=== PATIENT | female | born 1970 | race Caucasian/White ===

== ENCOUNTER 2018-03-10 13:20 | Emergency (ER) | payer OTHER | END 2018-03-10 14:05 | disposition home or self-care (01) | LOC: E/R 14:05 | DX: H66.91 Otitis media, unspecified, right ear (principal); B34.9 Viral infection, unspecified; E11.9 Type 2 diabetes mellitus without complications; I10 Essential (primary) hypertension; Z79.84 Long term (current) use of oral hypoglycemic drugs | CPT/HCPCS: 99284; Z7502 ==

== ENCOUNTER 2018-03-18 03:58 | Emergency (ER) | payer OTHER ==
[2018-03-18] MEDS: LABETALOL HCL 20MG INJ IV (05:11)
[2018-03-18] MEDS: hydrALAzine 20 MG INJ IV (05:57)
== END 2018-03-18 07:09 | disposition home or self-care (01) ==
LOC: E/R 03:58
DX: I10 Essential (primary) hypertension (principal); J01.00 Acute maxillary sinusitis, unspecified; H66.91 Otitis media, unspecified, right ear; E11.9 Type 2 diabetes mellitus without complications; Z79.84 Long term (current) use of oral hypoglycemic drugs
CPT/HCPCS: 36415; 70450; 93005; 96374; 96375; 99285-25

== ENCOUNTER 2018-03-24 14:40 | Emergency (ER) | payer OTHER ==
[2018-03-24] MEDS: ONDANSETRON (ODT) 4 MG TAB ODT (15:45)
[2018-03-24] MEDS: HYDROCODONE/APAP (5/325) TAB PO (15:45)
[2018-03-24] MEDS: SILVER SULFADIAZINE 1% 25 GM CR TOP (15:46)
== END 2018-03-24 16:22 | disposition home or self-care (01) ==
LOC: FTE 14:40
DX: T21.22XA Burn of second degree of abdominal wall, initial encounter (principal); I10 Essential (primary) hypertension; X19.XXXA Contact with other heat and hot substances, initial encounter; Y92.9 Unspecified place or not applicable; Z79.84 Long term (current) use of oral hypoglycemic drugs
CPT/HCPCS: 16020; 99284-25

== ENCOUNTER 2018-04-29 20:25 | Inpatient (IN) | payer OTHER ==
[2018-04-29] MEDS ORDERED: SOD CHLORIDE 0.9% 1,000 ML IV (20:57)
[2018-04-29] MEDS: SOD CHLORIDE 0.9% 1,000 ML IV (22:03)
[2018-04-29 22:13] LABS: WHITE BLOOD COUNT 11.3 10^3/ul (4.8-10.8)
[2018-04-29 22:13] LABS: ADD MAN DIFF? NO; BASOPHIL # 0.1 10^3/ul (0.0-0.1); BASOPHILS % 0.8 % (0.0-2.0); EOSINOPHILS # 0.3 10^3/ul (0.0-0.5); EOSINOPHILS % 2.9 % (0.0-7.0); HEMOGLOBIN 9.6 g/dl (12.0-16.0); LYMPHOCYTES # 2.1 10^3/ul (0.8-2.9); LYMPHOCYTES % 18.8 % (15.0-51.0); MEAN CORPUSCULAR HEMOGLOBIN 29.8 pg (29.0-33.0); MEAN CORPUSCULAR VOLUME 93.2 fl (82.0-101.0); MEAN PLATELET VOLUME 8.6 fl (7.4-10.4); MONOCYTE # 1.1 10^3/ul (0.3-0.9); NEUTROPHIL # 7.5 10^3/ul (1.6-7.5); NEUTROPHILS % 67.1 % (39.0-77.0); PLATELET COUNT 312 10^3/UL (140-415); RED BLOOD COUNT 3.22 10^6/ul (4.20-5.40); RED CELL DISTRIBUTION WIDTH 12.7 % (11.5-14.5)
[2018-04-29 22:31] LABS: ALANINE AMINOTRANSFERASE 36 IU/L (13-69); ALBUMIN 3.5 g/dl (3.3-4.9); ALBUMIN/GLOBULIN RATIO 0.94; ALKALINE PHOSPHATASE 166 IU/L (42-121); ANION GAP 15 (8-16); ASPARTATE AMINO TRANSFERASE 31 IU/L (15-46); BILIRUBIN,INDIRECT 0.3 mg/dl (0-1.1); BILIRUBIN,TOTAL 0.3 mg/dl (0.2-1.3); BLOOD UREA NITROGEN 40 mg/dl (7-20); CALCIUM 9.2 mg/dl (8.4-10.2); CARBON DIOXIDE 22 mmol/L (21-31); CHLORIDE 106 mmol/L (97-110); CREATININE 3.35 mg/dl (0.44-1.00); GLUCOSE 247 mg/dl (70-220); POTASSIUM 4.5 mmol/L (3.5-5.1); SODIUM 138 mmol/L (135-144); TOTAL PROTEIN 7.2 g/dl (6.1-8.1)
[2018-04-29 22:47] LABS: PROTIME 12.2 Sec (11.9-14.9)
[2018-04-29 22:48] LABS: PARTIAL THROMBOPLASTIN TIME 27.6 Sec (25.0-35.0)
[2018-04-30] MEDS: ASPIRIN 81 MG TAB PO (00:06)
[2018-04-30] MEDS: LABETALOL HCL 20MG INJ IV (00:06)
[2018-04-30] MEDS ORDERED: ACETAMINOPHEN 325 MG TAB PO (00:30)
[2018-04-30] MEDS ORDERED: ONDANSETRON 4 MG INJ IV ×2 (00:30→02:30)
[2018-04-30] MEDS ORDERED: NACL 0.9% 3 ML SYG IV (02:30)
[2018-04-30] MEDS ORDERED: DOCUSATE SODIUM 100 MG CAP PO (02:30)
[2018-04-30] MEDS ORDERED: BISACODYL (EC) 5 MG TAB PO (02:30)
[2018-04-30] MEDS ORDERED: hydrALAzine 20 MG INJ IV ×2 (04:30→08:30)
[2018-04-30] MEDS: LEVETIRACETAM 500 MG TAB PO ×3 (04:42→21:12)
[2018-04-30] MEDS: NIFEdipine (XL) 30 MG TAB PO ×3 (04:42→14:37)
[2018-04-30] MEDS: LOSARTAN 50 MG TAB PO (04:42)
[2018-04-30 05:25] LABS: ADD MAN DIFF? NO
[2018-04-30 05:26] LABS: WHITE BLOOD COUNT 8.5 10^3/ul (4.8-10.8)
[2018-04-30 05:26] LABS: BASOPHIL # 0.1 10^3/ul (0.0-0.1); BASOPHILS % 0.9 % (0.0-2.0); EOSINOPHILS # 0.3 10^3/ul (0.0-0.5); EOSINOPHILS % 2.9 % (0.0-7.0); HEMATOCRIT 27.7 % (37.0-47.0); LYMPHOCYTES # 1.9 10^3/ul (0.8-2.9); LYMPHOCYTES % 22.6 % (15.0-51.0); MEAN CORPUSCULAR HEMOGLOBIN 30.3 pg (29.0-33.0); MEAN CORPUSCULAR HGB CONC 32.5 g/dl (32.0-37.0); MEAN CORPUSCULAR VOLUME 93.3 fl (82.0-101.0); MEAN PLATELET VOLUME 8.7 fl (7.4-10.4); MONOCYTE # 0.8 10^3/ul (0.3-0.9); MONOCYTES % 9.9 % (0.0-11.0); NEUTROPHIL # 5.4 10^3/ul (1.6-7.5); NEUTROPHILS % 63.3 % (39.0-77.0); PLATELET COUNT 261 10^3/UL (140-415); RED BLOOD COUNT 2.97 10^6/ul (4.20-5.40); RED CELL DISTRIBUTION WIDTH 12.9 % (11.5-14.5)
[2018-04-30 05:43] LABS: HEMOGLOBIN A1C 8.5 % (0-5.9)
[2018-04-30 06:02] LABS: ALANINE AMINOTRANSFERASE 29 IU/L (13-69); ALBUMIN/GLOBULIN RATIO 0.96; ALKALINE PHOSPHATASE 119 IU/L (42-121); ANION GAP 17 (8-16); ASPARTATE AMINO TRANSFERASE 30 IU/L (15-46); BILIRUBIN,INDIRECT 0.3 mg/dl (0-1.1); BILIRUBIN,TOTAL 0.3 mg/dl (0.2-1.3); BLOOD UREA NITROGEN 39 mg/dl (7-20); CALCIUM 8.5 mg/dl (8.4-10.2); CARBON DIOXIDE 21 mmol/L (21-31); CHLORIDE 105 mmol/L (97-110); CHOLESTEROL 181 mg/dl (100-200); CREATININE 2.95 mg/dl (0.44-1.00); GLUCOSE 227 mg/dl (70-220); HDL CHOLESTEROL 42 mg/dl (34-88); MAGNESIUM 1.9 mg/dl (1.7-2.5); POTASSIUM 4.6 mmol/L (3.5-5.1); SODIUM 138 mmol/L (135-144); TOTAL PROTEIN 6.1 g/dl (6.1-8.1); TRIGLYCERIDES 204 mg/dl (0-149)
[2018-04-30 06:03] LABS: CHOL/HDL RATIO 4.3 RATIO; LDL CHOLESTEROL,CALCULATED 98 mg/dl
[2018-04-30] MEDS: LORATADINE 10 MG TAB PO (10:03)
[2018-04-30] MEDS ORDERED: GLUCOSE GEL 15 GRAM TUBE BUCCAL (15:30)
[2018-04-30] MEDS ORDERED: DEXTROSE 50% 50 ML SYRINGE IV (15:30)
[2018-04-30] MEDS ORDERED: GLUCOSE GEL 15 GRAM TUBE PO ×2 (15:30)
[2018-04-30] MEDS ORDERED: GLUCAGON 1 MG INJ IM (15:30)
[2018-04-30 16:07] LABS: IRON 48 ug/dl (35-150)
[2018-04-30] MEDS: hydrALAzine 20 MG INJ IV (16:15)
[2018-04-30 16:16] LABS: % IRON SATURATION 24 % SAT (22-52); TOTAL IRON BINDING CAPACITY 200 ug/dl (241-421)
[2018-04-30 16:42] LABS: FREE T4 (FREE THYROXINE) 1.24 ng/dl (0.64-1.79)
[2018-04-30 16:47] LABS: T4 (THYROXINE) 8.4 ug/dl (5.5-11.0)
[2018-04-30 16:47] LABS: FREE T3 3.38 pg/ml (2.77-5.27)
[2018-04-30] MEDS: INSULIN ASPART [NOVOLOG] 3 ML PEN SC ×2 (17:13→21:20)
[2018-04-30] MEDS: ESCITALOPRAM 10 MG TAB PO (21:12)
[2018-04-30] MEDS: ACETAMINOPHEN 325 MG TAB PO (21:12)
[2018-04-30] MEDS: ATORVASTATIN 10 MG TAB PO (21:12)
[2018-05-01] MEDS: INSULIN ASPART [NOVOLOG] 3 ML PEN SC ×5 (04:39→20:32)
[2018-05-01 06:12] LABS: ADD MAN DIFF? NO
[2018-05-01 06:15] LABS: WHITE BLOOD COUNT 8.3 10^3/ul (4.8-10.8)
[2018-05-01 06:15] LABS: BASOPHIL # 0.1 10^3/ul (0.0-0.1); EOSINOPHILS # 0.2 10^3/ul (0.0-0.5); EOSINOPHILS % 2.9 % (0.0-7.0); HEMATOCRIT 26.3 % (37.0-47.0); HEMOGLOBIN 8.6 g/dl (12.0-16.0); LYMPHOCYTES # 1.7 10^3/ul (0.8-2.9); MEAN CORPUSCULAR HEMOGLOBIN 30.1 pg (29.0-33.0); MEAN CORPUSCULAR HGB CONC 32.7 g/dl (32.0-37.0); MEAN PLATELET VOLUME 8.9 fl (7.4-10.4); MONOCYTE # 0.9 10^3/ul (0.3-0.9); MONOCYTES % 10.2 % (0.0-11.0); NEUTROPHIL # 5.4 10^3/ul (1.6-7.5); NEUTROPHILS % 64.4 % (39.0-77.0); PLATELET COUNT 255 10^3/UL (140-415); RED BLOOD COUNT 2.86 10^6/ul (4.20-5.40); RED CELL DISTRIBUTION WIDTH 12.9 % (11.5-14.5)
[2018-05-01 06:53] LABS: ALBUMIN 2.7 g/dl (3.3-4.9); ANION GAP 15 (8-16); BLOOD UREA NITROGEN 37 mg/dl (7-20); CALCIUM 8.5 mg/dl (8.4-10.2); CARBON DIOXIDE 19 mmol/L (21-31); CHLORIDE 110 mmol/L (97-110); CREATININE 2.97 mg/dl (0.44-1.00); GLUCOSE 179 mg/dl (70-220); MAGNESIUM 1.9 mg/dl (1.7-2.5); PHOSPHORUS 4.4 mg/dl (2.5-4.9); POTASSIUM 4.5 mmol/L (3.5-5.1); SODIUM 139 mmol/L (135-144)
[2018-05-01 07:16] LABS: URIC ACID 7.5 mg/dl (3.1-7.9)
[2018-05-01 07:16] LABS: CREATINE KINASE 29 IU/L (23-200)
[2018-05-01] MEDS: LORATADINE 10 MG TAB PO (09:00)
[2018-05-01] MEDS: LEVETIRACETAM 500 MG TAB PO ×2 (09:01→20:36)
[2018-05-01] MEDS: NIFEdipine (XL) 60 MG TAB PO (12:25)
[2018-05-01] MEDS: GLIMEPIRIDE 4 MG TAB PO (20:35)
[2018-05-01] MEDS: ESCITALOPRAM 10 MG TAB PO (20:36)
[2018-05-01] MEDS: ATORVASTATIN 80 MG TAB PO (20:36)
[2018-05-02] MEDS: INSULIN ASPART [NOVOLOG] 3 ML PEN SC ×4 (07:48→20:49)
[2018-05-02] MEDS: INSULIN GLARGINE [LANtus] 3 ML PEN SC (07:52)
[2018-05-02] MEDS: LORATADINE 10 MG TAB PO (08:16)
[2018-05-02] MEDS: NIFEdipine (XL) 60 MG TAB PO (08:16)
[2018-05-02] MEDS: ASPIRIN 81 MG TAB PO (08:16)
[2018-05-02] MEDS: LEVETIRACETAM 500 MG TAB PO ×2 (08:16→20:47)
[2018-05-02 09:02] LABS: ADD MAN DIFF? NO
[2018-05-02 09:20] LABS: WHITE BLOOD COUNT 8.3 10^3/ul (4.8-10.8)
[2018-05-02 09:20] LABS: BASOPHIL # 0.1 10^3/ul (0.0-0.1); BASOPHILS % 1.1 % (0.0-2.0); EOSINOPHILS # 0.1 10^3/ul (0.0-0.5); EOSINOPHILS % 1.7 % (0.0-7.0); HEMATOCRIT 29.4 % (37.0-47.0); HEMOGLOBIN 9.7 g/dl (12.0-16.0); LYMPHOCYTES # 1.6 10^3/ul (0.8-2.9); MEAN CORPUSCULAR HEMOGLOBIN 30.6 pg (29.0-33.0); MEAN CORPUSCULAR VOLUME 92.7 fl (82.0-101.0); MONOCYTE # 0.8 10^3/ul (0.3-0.9); NEUTROPHIL # 5.6 10^3/ul (1.6-7.5); NEUTROPHILS % 67.7 % (39.0-77.0); PLATELET COUNT 292 10^3/UL (140-415); RED BLOOD COUNT 3.17 10^6/ul (4.20-5.40); RED CELL DISTRIBUTION WIDTH 12.9 % (11.5-14.5)
[2018-05-02 09:40] LABS: ALBUMIN 3.4 g/dl (3.3-4.9); ANION GAP 16 (8-16); BLOOD UREA NITROGEN 35 mg/dl (7-20); CARBON DIOXIDE 20 mmol/L (21-31); CHLORIDE 106 mmol/L (97-110); CREATININE 3.33 mg/dl (0.44-1.00); GLUCOSE 87 mg/dl (70-220); MAGNESIUM 2.1 mg/dl (1.7-2.5); PHOSPHORUS 4.7 mg/dl (2.5-4.9); POTASSIUM 4.4 mmol/L (3.5-5.1); SODIUM 138 mmol/L (135-144)
[2018-05-02] MEDS: SOD CHLORIDE 0.9% 1,000 ML IV (11:58)
[2018-05-02] MEDS: SILVER SULFADIAZINE 1% 25 GM CR TOP (12:15)
[2018-05-02] MEDS: ESCITALOPRAM 10 MG TAB PO (20:46)
[2018-05-02] MEDS: GLIMEPIRIDE 4 MG TAB PO (20:47)
[2018-05-02] MEDS: ATORVASTATIN 80 MG TAB PO (20:47)
[2018-05-03 00:20] LABS: SODIUM,URINE RANDOM 66 mmol/L (30-90)
[2018-05-03 00:20] LABS: CREATININE,URINE RANDOM 73.17 mg/dl (20-320)
[2018-05-03 00:21] LABS: CREATININE,URINE RANDOM 72.84 mg/dl (20-320); PROTEIN/CREAT RATIO 2.73 RATIO
[2018-05-03 00:50] LABS: ADD UMIC YES; UR ASCORBIC ACID NEGATIVE (NEGATIVE); UR BACTERIA FEW /HPF (NONE SEEN); UR BILIRUBIN (Dip) NEGATIVE (NEGATIVE); UR BLOOD (Dip) NEGATIVE (NEGATIVE); UR CLARITY SLIGHTLY CLOUDY (CLEAR); UR COLOR YELLOW (YELLOW); UR GLUCOSE (Dip) NEGATIVE (NEGATIVE); UR KETONES (Dip) NEGATIVE (NEGATIVE); UR LEUKOCYTE ESTERASE (Dip) 1+ Leu/ul (NEGATIVE); UR NITRITE (Dip) NEGATIVE (NEGATIVE); UR RBC 2 /HPF (0-5); UR SPECIFIC GRAVITY (Dip) 1.011 (1.003-1.030); UR TOTAL PROTEIN (Dip) 2+ mg/dl (NEGATIVE); UR UROBILINOGEN (Dip) NEGATIVE (NEGATIVE); UR WBC 39 /HPF (0-5)
[2018-05-03] MEDS: DEXTROSE 50% 50 ML SYRINGE IV (02:46)
[2018-05-03] MEDS: LEVETIRACETAM 500 MG TAB PO ×2 (08:29→20:16)
[2018-05-03] MEDS: LORATADINE 10 MG TAB PO (08:30)
[2018-05-03] MEDS: ASPIRIN 81 MG TAB PO (08:30)
[2018-05-03] MEDS: NIFEdipine (XL) 60 MG TAB PO (08:30)
[2018-05-03] MEDS: INSULIN GLARGINE [LANtus] 3 ML PEN SC ×2 (08:31→20:22)
[2018-05-03] MEDS: INSULIN ASPART [NOVOLOG] 3 ML PEN SC ×4 (08:31→20:22)
[2018-05-03] MEDS: SILVER SULFADIAZINE 1% 25 GM CR TOP (08:32)
[2018-05-03 09:02] LABS: ADD MAN DIFF? NO
[2018-05-03 09:07] LABS: WHITE BLOOD COUNT 9.2 10^3/ul (4.8-10.8)
[2018-05-03 09:07] LABS: BASOPHIL # 0.1 10^3/ul (0.0-0.1); BASOPHILS % 0.7 % (0.0-2.0); EOSINOPHILS % 0.2 % (0.0-7.0); HEMOGLOBIN 9.9 g/dl (12.0-16.0); LYMPHOCYTES # 1.3 10^3/ul (0.8-2.9); LYMPHOCYTES % 14.1 % (15.0-51.0); MEAN CORPUSCULAR HEMOGLOBIN 30.1 pg (29.0-33.0); MEAN CORPUSCULAR HGB CONC 31.9 g/dl (32.0-37.0); MEAN CORPUSCULAR VOLUME 94.2 fl (82.0-101.0); MONOCYTE # 0.4 10^3/ul (0.3-0.9); MONOCYTES % 4.1 % (0.0-11.0); NEUTROPHIL # 7.4 10^3/ul (1.6-7.5); NEUTROPHILS % 80.6 % (39.0-77.0); PLATELET COUNT 320 10^3/UL (140-415); RED BLOOD COUNT 3.29 10^6/ul (4.20-5.40); RED CELL DISTRIBUTION WIDTH 12.9 % (11.5-14.5)
[2018-05-03 09:27] LABS: ALBUMIN 3.5 g/dl (3.3-4.9); ANION GAP 18 (8-16); BLOOD UREA NITROGEN 34 mg/dl (7-20); CALCIUM 8.7 mg/dl (8.4-10.2); CARBON DIOXIDE 19 mmol/L (21-31); CHLORIDE 104 mmol/L (97-110); CREATININE 3.32 mg/dl (0.44-1.00); GLUCOSE 191 mg/dl (70-220); MAGNESIUM 2.1 mg/dl (1.7-2.5); PHOSPHORUS 4.8 mg/dl (2.5-4.9); POTASSIUM 4.9 mmol/L (3.5-5.1); SODIUM 136 mmol/L (135-144)
[2018-05-03] MEDS: SOD CHLORIDE 0.9% 1,000 ML IV (12:00)
[2018-05-03] MEDS: NIFEdipine (XL) 30 MG TAB PO (16:29)
[2018-05-03] MEDS: ESCITALOPRAM 10 MG TAB PO (20:17)
[2018-05-03] MEDS: ACETAMINOPHEN 325 MG TAB PO (20:17)
[2018-05-03] MEDS: ATORVASTATIN 80 MG TAB PO (20:17)
[2018-05-04] MEDS: INSULIN ASPART [NOVOLOG] 3 ML PEN SC ×2 (08:00→12:00)
[2018-05-04] MEDS: glipiZIDE 5 MG TAB PO (08:11)
[2018-05-04] MEDS: NIFEdipine (XL) 90 MG TAB PO (08:11)
[2018-05-04] MEDS: LEVETIRACETAM 500 MG TAB PO (08:12)
[2018-05-04] MEDS: ASPIRIN 81 MG TAB PO (08:12)
[2018-05-04] MEDS: SILVER SULFADIAZINE 1% 25 GM CR TOP (08:12)
[2018-05-04] MEDS: LORATADINE 10 MG TAB PO (08:12)
[2018-05-04] MEDS: CITRIC ACID/SODIUM CITRATE 15 ML CUP PO (14:01)
[2018-05-04] MEDS ORDERED: CITRIC ACID/SODIUM CITRATE 15 ML CUP PO (21:00)
[2018-05-06 15:42] LABS: CREATININE, RANDOM URINE 87 mg/dL (20-320); MICROALBUMIN/CREATININE RATIO 943 (<30)
== END 2018-05-04 14:24 | disposition home health service (06) | DRG 65 ==
LOC: E/R 20:25 → MS4 04-30 00:12
DX: I63.9 Cerebral infarction, unspecified (principal); N17.9 Acute kidney failure, unspecified; I16.1 Hypertensive emergency; I12.9 Hypertensive chronic kidney disease with stage 1 through stage 4 chronic kidney disease, or unspecified chronic kidney disease; E11.22 Type 2 diabetes mellitus with diabetic chronic kidney disease; N18.3 Chronic kidney disease, stage 3 (moderate); G40.909 Epilepsy, unspecified, not intractable, without status epilepticus; E11.21 Type 2 diabetes mellitus with diabetic nephropathy; E78.5 Hyperlipidemia, unspecified; R20.2 Paresthesia of skin; R20.0 Anesthesia of skin; Z79.84 Long term (current) use of oral hypoglycemic drugs; Z88.0 Allergy status to penicillin
CPT/HCPCS: 70450; 70544; 70548; 70551; 76775; 80053; 80061; 80069; 81001; 81003; 82043; 82550; 82570; 82962; 83036; 83540; 83735; 84155; 84300; 84436; 84439; 84443; 84481; 84484; 84560; 85025; 85610; 85730; 89190; 93005; 93306; 96361; 96374; 97116; 97163; 97165; 97530; 99291-25

== ENCOUNTER 2018-12-29 21:24 | Inpatient (IN) | payer OTHER ==
[2018-12-29 22:36] LABS: ADD MAN DIFF? NO
[2018-12-29 22:37] LABS: BASOPHIL # 0.1 10^3/ul (0.0-0.1); BASOPHILS % 0.5 % (0.0-2.0); EOSINOPHILS # 0.3 10^3/ul (0.0-0.5); EOSINOPHILS % 2.3 % (0.0-7.0); HEMATOCRIT 26.7 % (37.0-47.0); HEMOGLOBIN 8.5 g/dl (12.0-16.0); LYMPHOCYTES % 8.3 % (15.0-51.0); MEAN CORPUSCULAR HEMOGLOBIN 30.7 pg (29.0-33.0); MEAN CORPUSCULAR HGB CONC 31.8 g/dl (32.0-37.0); MEAN CORPUSCULAR VOLUME 96.4 fl (82.0-101.0); MEAN PLATELET VOLUME 9.6 fl (7.4-10.4); MONOCYTE # 0.9 10^3/ul (0.3-0.9); MONOCYTES % 7.5 % (0.0-11.0); NEUTROPHIL # 9.7 10^3/ul (1.6-7.5); NEUTROPHILS % 80.4 % (39.0-77.0); PLATELET COUNT 309 10^3/UL (140-415); RED BLOOD COUNT 2.77 10^6/ul (4.20-5.40); RED CELL DISTRIBUTION WIDTH 14.1 % (11.5-14.5)
[2018-12-29 22:55] LABS: ANION GAP 12 (5-13); BLOOD UREA NITROGEN 50 mg/dl (7-20); CARBON DIOXIDE 20 mmol/L (21-31); CHLORIDE 104 mmol/L (97-110); CREATININE 5.78 mg/dl (0.44-1.00); Estimated GFR 8 mL/min (>60); GLUCOSE 182 mg/dl (70-220); POTASSIUM 4.2 mmol/L (3.5-5.1); SODIUM 136 mmol/L (135-144)
[2018-12-29 22:57] LABS: INR 0.99; PROTIME 13.2 Sec (11.9-14.9)
[2018-12-29 22:58] LABS: PARTIAL THROMBOPLASTIN TIME 29.2 Sec (23.0-35.0)
[2018-12-29 23:07] LABS: B-TYPE NATRIURETIC PEPTIDE 25300 PG/ML (0-125); TROPONIN-I 0.042 ng/ml (0.000-0.120)
[2018-12-30] MEDS ORDERED: NACL 0.9% 3 ML SYG IV (02:00)
[2018-12-30] MEDS ORDERED: DEXTROSE 50% 50 ML SYRINGE IV ×2 (02:30)
[2018-12-30] MEDS ORDERED: GLUCOSE GEL 15 GRAM TUBE PO ×2 (02:30)
[2018-12-30] MEDS ORDERED: GLUCOSE GEL 15 GRAM TUBE BUCCAL (02:30)
[2018-12-30] MEDS ORDERED: GLUCAGON 1 MG INJ IM (02:30)
[2018-12-30] MEDS: LEVOFLOXACIN 500MG/D5W (PMX) 100 ML IVPB (02:54)
[2018-12-30] MEDS: NIFEdipine (XL) 90 MG TAB PO ×2 (03:14→08:35)
[2018-12-30] MEDS: AZITHROMYCIN 500MG/NS (PMX) 250 ML IVPB (04:05)
[2018-12-30] MEDS: FUROSEMIDE 20 MG TAB PO (05:53)
[2018-12-30 06:45] LABS: ADD MAN DIFF? NO
[2018-12-30 06:50] LABS: BASOPHIL # 0.1 10^3/ul (0.0-0.1); BASOPHILS % 0.7 % (0.0-2.0); EOSINOPHILS # 0.3 10^3/ul (0.0-0.5); EOSINOPHILS % 2.7 % (0.0-7.0); HEMATOCRIT 28.5 % (37.0-47.0); LYMPHOCYTES # 1.1 10^3/ul (0.8-2.9); LYMPHOCYTES % 9.6 % (15.0-51.0); MEAN CORPUSCULAR HEMOGLOBIN 30.3 pg (29.0-33.0); MEAN CORPUSCULAR HGB CONC 31.6 g/dl (32.0-37.0); MEAN PLATELET VOLUME 9.6 fl (7.4-10.4); MONOCYTE # 1.1 10^3/ul (0.3-0.9); MONOCYTES % 9.6 % (0.0-11.0); NEUTROPHIL # 8.9 10^3/ul (1.6-7.5); PLATELET COUNT 296 10^3/UL (140-415); RED BLOOD COUNT 2.97 10^6/ul (4.20-5.40); RED CELL DISTRIBUTION WIDTH 14.5 % (11.5-14.5)
[2018-12-30 06:50] LABS: WHITE BLOOD COUNT 11.6 10^3/ul (4.8-10.8)
[2018-12-30 07:02] LABS: HEMOGLOBIN A1C 5.9 % (0-5.9)
[2018-12-30 07:07] LABS: ALANINE AMINOTRANSFERASE 28 IU/L (13-69); ALBUMIN 3.3 g/dl (3.3-4.9); ALKALINE PHOSPHATASE 212 IU/L (42-121); ANION GAP 12 (5-13); ASPARTATE AMINO TRANSFERASE 33 IU/L (15-46); BILIRUBIN,INDIRECT 0.1 mg/dl (0-1.1); BILIRUBIN,TOTAL 0.1 mg/dl (0.2-1.3); BLOOD UREA NITROGEN 50 mg/dl (7-20); CALCIUM 8.4 mg/dl (8.4-10.2); CARBON DIOXIDE 19 mmol/L (21-31); CHLORIDE 108 mmol/L (97-110); CREATININE 5.78 mg/dl (0.44-1.00); Estimated GFR 8 mL/min (>60); GLUCOSE 118 mg/dl (70-220); POTASSIUM 3.9 mmol/L (3.5-5.1); SODIUM 139 mmol/L (135-144); TOTAL PROTEIN 6.3 g/dl (6.1-8.1)
[2018-12-30] MEDS: INSULIN ASPART [NOVOLOG] 3 ML PEN SC ×4 (07:55→21:00)
[2018-12-30 08:19] LABS: IRON 38 ug/dl (35-150)
[2018-12-30 08:28] LABS: % IRON SATURATION 18 % SAT (22-52); TOTAL IRON BINDING CAPACITY 209 ug/dl (241-421)
[2018-12-30] MEDS: LEVETIRACETAM 750 MG TAB PO ×2 (08:34→20:49)
[2018-12-30] MEDS: ASPIRIN 81 MG TAB PO (08:35)
[2018-12-30 10:57] LABS: ADD UMIC YES; UR ASCORBIC ACID NEGATIVE (NEGATIVE); UR BACTERIA FEW /HPF (NONE SEEN); UR BILIRUBIN (Dip) NEGATIVE (NEGATIVE); UR BLOOD (Dip) NEGATIVE (NEGATIVE); UR CLARITY CLEAR (CLEAR); UR COLOR STRAW (YELLOW); UR GLUCOSE (Dip) 1+ mg/dL (NEGATIVE); UR KETONES (Dip) NEGATIVE (NEGATIVE); UR LEUKOCYTE ESTERASE (Dip) NEGATIVE Leu/ul (NEGATIVE); UR NITRITE (Dip) NEGATIVE (NEGATIVE); UR RBC 1 /HPF (0-5); UR SPECIFIC GRAVITY (Dip) 1.008 (1.003-1.030); UR TOTAL PROTEIN (Dip) 2+ mg/dl (NEGATIVE); UR UROBILINOGEN (Dip) NEGATIVE (NEGATIVE); UR WBC 3 /HPF (0-5)
[2018-12-30 11:03] LABS: CREATININE,URINE RANDOM 28.95 mg/dl (20-320)
[2018-12-30 11:03] LABS: SODIUM,URINE RANDOM 114 mmol/L (30-90)
[2018-12-30] MEDS: FUROSEMIDE 40 MG INJ IV ×2 (17:11)
[2018-12-30] MEDS ORDERED: FUROSEMIDE 100 MG INJ IV (18:00)
[2018-12-30] MEDS: LORAZEPAM 2 MG INJ IV (19:57)
[2018-12-30] MEDS: ALBUTEROL/IPRATROPIUM (NEB) 3 ML AMP HHN (20:14)
[2018-12-30] MEDS: ESCITALOPRAM 10 MG TAB PO (20:48)
[2018-12-30] MEDS: ATORVASTATIN 80 MG TAB PO (20:49)
[2018-12-30] MEDS: HEPARIN 5,000 UNIT/1 ML VIAL SC (20:53)
[2018-12-30] MEDS: INSULIN GLARGINE [LANTus] (100 UNITS/ML) SYG SC (21:10)
[2018-12-31] MEDS: ACCU-CHEK XX (02:00)
[2018-12-31] MEDS: FUROSEMIDE 40 MG INJ IV (06:18)
[2018-12-31 06:48] LABS: ADD MAN DIFF? NO; HAAIG REFLEX REFLEX FILED
[2018-12-31 06:54] LABS: WHITE BLOOD COUNT 9.3 10^3/ul (4.8-10.8)
[2018-12-31 06:54] LABS: BASOPHILS % 0.4 % (0.0-2.0); EOSINOPHILS # 0.2 10^3/ul (0.0-0.5); EOSINOPHILS % 1.6 % (0.0-7.0); HEMATOCRIT 25.3 % (37.0-47.0); HEMOGLOBIN 7.8 g/dl (12.0-16.0); LYMPHOCYTES % 10.5 % (15.0-51.0); MEAN CORPUSCULAR HEMOGLOBIN 30.6 pg (29.0-33.0); MEAN CORPUSCULAR HGB CONC 30.8 g/dl (32.0-37.0); MEAN CORPUSCULAR VOLUME 99.2 fl (82.0-101.0); MEAN PLATELET VOLUME 9.5 fl (7.4-10.4); MONOCYTE # 0.9 10^3/ul (0.3-0.9); NEUTROPHIL # 7.1 10^3/ul (1.6-7.5); NEUTROPHILS % 76.7 % (39.0-77.0); PLATELET COUNT 292 10^3/UL (140-415); RED BLOOD COUNT 2.55 10^6/ul (4.20-5.40); RED CELL DISTRIBUTION WIDTH 14.7 % (11.5-14.5)
[2018-12-31 07:11] LABS: ANION GAP 10 (5-13); BLOOD UREA NITROGEN 54 mg/dl (7-20); CARBON DIOXIDE 20 mmol/L (21-31); CHLORIDE 108 mmol/L (97-110); CREATININE 6.49 mg/dl (0.44-1.00); Estimated GFR 7 mL/min (>60); GLUCOSE 84 mg/dl (70-220); MAGNESIUM 2.1 mg/dl (1.7-2.5); PHOSPHORUS 5.8 mg/dl (2.5-4.9); POTASSIUM 4.5 mmol/L (3.5-5.1); SODIUM 138 mmol/L (135-144)
[2018-12-31 07:38] LABS: HEPATITIS B SURFACE ANTIGEN NEGATIVE (NEGATIVE)
[2018-12-31] MEDS: INSULIN ASPART [NOVOLOG] 3 ML PEN SC ×4 (07:55→20:50)
[2018-12-31 07:56] LABS: HEPATITIS B CORE ANTIBODY NEGATIVE (NEGATIVE); HEPATITIS C VIRAL ANTIBODY NEGATIVE (NEGATIVE)
[2018-12-31] MEDS: NIFEdipine (XL) 90 MG TAB PO (09:00)
[2018-12-31] MEDS: ASPIRIN 81 MG TAB PO (09:35)
[2018-12-31] MEDS: LEVETIRACETAM 750 MG TAB PO ×2 (09:35→20:52)
[2018-12-31] MEDS: HEPARIN 5,000 UNIT/1 ML VIAL SC ×2 (09:46→21:02)
[2018-12-31] MEDS: SOD FERRIC GLUC COMPLX 125 MG in SOD CHLORIDE 0.9% 100 ML IVPB (15:25)
[2018-12-31] MEDS: EPOETIN ALFA (NESRD) 3,000 UNITS/ML VIAL SC (15:26)
[2018-12-31] MEDS: FUROSEMIDE 20 MG INJ IV (17:22)
[2018-12-31] MEDS: ESCITALOPRAM 10 MG TAB PO (20:52)
[2018-12-31] MEDS: ATORVASTATIN 80 MG TAB PO (20:52)
[2018-12-31] MEDS: INSULIN GLARGINE [LANTus] (100 UNITS/ML) SYG SC (21:02)
[2019-01-01] MEDS: ACCU-CHEK XX (02:00)
[2019-01-01] MEDS ORDERED: LEVOFLOXACIN 250MG/D5W (PMX) 50 ML IVPB (03:00)
[2019-01-01 06:10] LABS: ADD MAN DIFF? NO
[2019-01-01 06:21] LABS: BASOPHIL # 0.1 10^3/ul (0.0-0.1); BASOPHILS % 0.8 % (0.0-2.0); EOSINOPHILS # 0.3 10^3/ul (0.0-0.5); EOSINOPHILS % 2.8 % (0.0-7.0); HEMATOCRIT 26.3 % (37.0-47.0); HEMOGLOBIN 8.1 g/dl (12.0-16.0); LYMPHOCYTES # 1.3 10^3/ul (0.8-2.9); LYMPHOCYTES % 13.7 % (15.0-51.0); MEAN CORPUSCULAR HEMOGLOBIN 30.1 pg (29.0-33.0); MEAN CORPUSCULAR HGB CONC 30.8 g/dl (32.0-37.0); MEAN CORPUSCULAR VOLUME 97.8 fl (82.0-101.0); MEAN PLATELET VOLUME 9.4 fl (7.4-10.4); MONOCYTE # 0.9 10^3/ul (0.3-0.9); MONOCYTES % 10.1 % (0.0-11.0); NEUTROPHIL # 6.6 10^3/ul (1.6-7.5); NEUTROPHILS % 71.8 % (39.0-77.0); PLATELET COUNT 284 10^3/UL (140-415); RED BLOOD COUNT 2.69 10^6/ul (4.20-5.40); RED CELL DISTRIBUTION WIDTH 14.6 % (11.5-14.5)
[2019-01-01 06:21] LABS: WHITE BLOOD COUNT 9.2 10^3/ul (4.8-10.8)
[2019-01-01] MEDS: FUROSEMIDE 20 MG INJ IV ×2 (06:37→17:02)
[2019-01-01 07:29] LABS: ANION GAP 13 (5-13); BLOOD UREA NITROGEN 52 mg/dl (7-20); CARBON DIOXIDE 20 mmol/L (21-31); CHLORIDE 105 mmol/L (97-110); CREATININE 7.03 mg/dl (0.44-1.00); Estimated GFR 6 mL/min (>60); GLUCOSE 89 mg/dl (70-220); PHOSPHORUS 6.1 mg/dl (2.5-4.9); POTASSIUM 4.3 mmol/L (3.5-5.1); SODIUM 138 mmol/L (135-144)
[2019-01-01] MEDS: INSULIN ASPART [NOVOLOG] 3 ML PEN SC ×4 (07:55→20:48)
[2019-01-01] MEDS: ASPIRIN 81 MG TAB PO (09:09)
[2019-01-01] MEDS: LEVETIRACETAM 750 MG TAB PO ×2 (09:09→20:47)
[2019-01-01] MEDS: NIFEdipine (XL) 90 MG TAB PO (09:09)
[2019-01-01] MEDS: HEPARIN 5,000 UNIT/1 ML VIAL SC ×2 (09:15→21:04)
[2019-01-01] MEDS ORDERED: LEVETIRACETAM 500 MG TAB PO (09:30)
[2019-01-01] MEDS: SOD FERRIC GLUC COMPLX 125 MG in SOD CHLORIDE 0.9% 100 ML IVPB (12:55)
[2019-01-01] MEDS: ATORVASTATIN 80 MG TAB PO (20:46)
[2019-01-01] MEDS: ESCITALOPRAM 10 MG TAB PO (20:46)
[2019-01-01] MEDS: INSULIN GLARGINE [LANTus] (100 UNITS/ML) SYG SC (21:04)
[2019-01-02] MEDS: ACCU-CHEK XX (01:52)
[2019-01-02] MEDS: FUROSEMIDE 20 MG INJ IV ×2 (06:32→17:15)
[2019-01-02 07:29] LABS: ANION GAP 13 (5-13); BLOOD UREA NITROGEN 51 mg/dl (7-20); CALCIUM 8.2 mg/dl (8.4-10.2); CARBON DIOXIDE 20 mmol/L (21-31); CHLORIDE 106 mmol/L (97-110); CREATININE 7.46 mg/dl (0.44-1.00); Estimated GFR 6 mL/min (>60); GLUCOSE 86 mg/dl (70-220); POTASSIUM 4.1 mmol/L (3.5-5.1); SODIUM 139 mmol/L (135-144)
[2019-01-02] MEDS: INSULIN ASPART [NOVOLOG] 3 ML PEN SC ×4 (07:55→20:44)
[2019-01-02] MEDS: LEVETIRACETAM 750 MG TAB PO ×2 (08:07→20:44)
[2019-01-02] MEDS: ASPIRIN 81 MG TAB PO (08:07)
[2019-01-02] MEDS: NIFEdipine (XL) 90 MG TAB PO (08:08)
[2019-01-02] MEDS: ONDANSETRON 4 MG INJ IV (10:21)
[2019-01-02 13:41] LABS: FLD MN% 81.1 %; FLD PMN% 18.9 %; FLD WBC 122 /cmm
[2019-01-02] MEDS: SOD FERRIC GLUC COMPLX 125 MG in SOD CHLORIDE 0.9% 100 ML IVPB (14:03)
[2019-01-02 14:13] LABS: FLD CLARITY SLIGHTLY HAZY
[2019-01-02 14:13] LABS: FLD TYPE PLEURAL
[2019-01-02 14:16] LABS: FLD RBC < 2000 /uL
[2019-01-02 14:20] LABS: FLD COLOR OTHER
[2019-01-02] MEDS: LIDOCAINE 1% (MPF) 5 ML VIAL (14:33)
[2019-01-02] MEDS: LIDOCAINE 1% (MDV) 20 ML INJ (14:33)
[2019-01-02 17:22] LABS: CREATININE, RANDOM URINE 31 mg/dL (20-275); MICROALBUMIN 60.6 mg/dL; MICROALBUMIN/CREATININE RATIO 1955 (<30)
[2019-01-02] MEDS: ESCITALOPRAM 10 MG TAB PO (20:44)
[2019-01-02] MEDS: ATORVASTATIN 80 MG TAB PO (20:44)
[2019-01-02] MEDS: INSULIN GLARGINE [LANTus] (100 UNITS/ML) SYG SC (20:58)
[2019-01-03] MEDS: ACCU-CHEK XX (02:00)
[2019-01-03] MEDS: FUROSEMIDE 20 MG INJ IV ×2 (05:54→17:38)
[2019-01-03 07:01] LABS: ADD MAN DIFF? NO
[2019-01-03 07:05] LABS: WHITE BLOOD COUNT 12.2 10^3/ul (4.8-10.8)
[2019-01-03 07:05] LABS: BASOPHIL # 0.1 10^3/ul (0.0-0.1); BASOPHILS % 0.4 % (0.0-2.0); EOSINOPHILS # 0.1 10^3/ul (0.0-0.5); HEMATOCRIT 29.4 % (37.0-47.0); HEMOGLOBIN 9.2 g/dl (12.0-16.0); LYMPHOCYTES # 0.8 10^3/ul (0.8-2.9); LYMPHOCYTES % 6.6 % (15.0-51.0); MEAN CORPUSCULAR HEMOGLOBIN 30.4 pg (29.0-33.0); MEAN CORPUSCULAR HGB CONC 31.3 g/dl (32.0-37.0); MEAN PLATELET VOLUME 9.4 fl (7.4-10.4); MONOCYTE # 1.1 10^3/ul (0.3-0.9); MONOCYTES % 8.7 % (0.0-11.0); NEUTROPHIL # 10.1 10^3/ul (1.6-7.5); NEUTROPHILS % 82.3 % (39.0-77.0); PLATELET COUNT 289 10^3/UL (140-415); RED BLOOD COUNT 3.03 10^6/ul (4.20-5.40); RED CELL DISTRIBUTION WIDTH 14.3 % (11.5-14.5)
[2019-01-03 07:42] LABS: ANION GAP 11 (5-13); BLOOD UREA NITROGEN 53 mg/dl (7-20); CARBON DIOXIDE 21 mmol/L (21-31); CHLORIDE 108 mmol/L (97-110); CREATININE 7.36 mg/dl (0.44-1.00); Estimated GFR 6 mL/min (>60); GLUCOSE 88 mg/dl (70-220); MAGNESIUM 2.1 mg/dl (1.7-2.5); PHOSPHORUS 6.4 mg/dl (2.5-4.9); SODIUM 140 mmol/L (135-144)
[2019-01-03] MEDS: INSULIN ASPART [NOVOLOG] 3 ML PEN SC ×4 (07:55→21:00)
[2019-01-03] MEDS: ASPIRIN 81 MG TAB PO (08:13)
[2019-01-03] MEDS: HEPARIN 5,000 UNIT/1 ML VIAL SC (08:13)
[2019-01-03] MEDS: NIFEdipine (XL) 90 MG TAB PO (08:13)
[2019-01-03] MEDS: LEVETIRACETAM 750 MG TAB PO ×2 (08:13→23:20)
[2019-01-03] MEDS: SOD FERRIC GLUC COMPLX 125 MG in SOD CHLORIDE 0.9% 100 ML IVPB (12:30)
[2019-01-03] MEDS: ONDANSETRON 4 MG INJ IV (13:18)
[2019-01-03] MEDS: FENTAnyl 50 MCG/ML VIAL (13:36)
[2019-01-03] MEDS: LIDOCAINE 1% (MDV) 20 ML INJ (13:36)
[2019-01-03] MEDS: LIDOCAINE 2% (SDV) 5 ML INJ (13:56)
[2019-01-03] MEDS: MIDAZOLAM 1 MG/ML 2 ML INJ (13:56)
[2019-01-03] MEDS: PROPOFOL 20 ML (13:57)
[2019-01-03] MEDS: CEFAZOLIN 1 GM/50 ML (PMX) 0 ML IVPB (14:07)
[2019-01-03] MEDS: hydrALAzine 20 MG INJ (14:15)
[2019-01-03] MEDS ORDERED: HYDROmorphONE 1 MG/5 ML IV SYRINGE IV ×2 (15:30)
[2019-01-03] MEDS ORDERED: DIPHENHYDRAMINE 50 MG INJ IV (15:30)
[2019-01-03] MEDS ORDERED: ONDANSETRON 4 MG INJ IV (15:30)
[2019-01-03] MEDS ORDERED: FENTAnyl 50 MCG/ML VIAL IV (15:30)
[2019-01-03] MEDS ORDERED: hydrALAzine 20 MG INJ IV (15:30)
[2019-01-03] MEDS ORDERED: LABETALOL HCL 20MG INJ IV (15:30)
[2019-01-03] MEDS ORDERED: METOCLOPRAMIDE 10 MG INJ IV (15:30)
[2019-01-03] MEDS: HEPARIN 1000 UNITS/ML 10 ML INJ (18:13)
[2019-01-03] MEDS: HEPARIN 1000 UNITS/ML 10 ML INJ CATHETER (20:52)
[2019-01-03] MEDS: ESCITALOPRAM 10 MG TAB PO (20:54)
[2019-01-03] MEDS: ATORVASTATIN 80 MG TAB PO (20:55)
[2019-01-03] MEDS: INSULIN GLARGINE [LANTus] (100 UNITS/ML) SYG SC (21:05)
[2019-01-03] MEDS: hydrALAzine 20 MG INJ IV (23:23)
[2019-01-04] MEDS: HEPARIN 5,000 UNIT/1 ML VIAL SC ×3 (00:06→21:37)
[2019-01-04] MEDS: ACCU-CHEK XX (02:00)
[2019-01-04] MEDS: LABETALOL HCL 20MG INJ IV (02:39)
[2019-01-04] MEDS: FUROSEMIDE 20 MG INJ IV ×2 (05:22→17:44)
[2019-01-04] MEDS: INSULIN ASPART [NOVOLOG] 3 ML PEN SC ×4 (07:55→21:00)
[2019-01-04] MEDS: NIFEdipine (XL) 90 MG TAB PO (08:19)
[2019-01-04] MEDS: LEVETIRACETAM 750 MG TAB PO ×2 (08:19→21:03)
[2019-01-04] MEDS: ASPIRIN 81 MG TAB PO (08:19)
[2019-01-04 10:22] LABS: ANION GAP 8 (5-13); BLOOD UREA NITROGEN 33 mg/dl (7-20); CALCIUM 8.1 mg/dl (8.4-10.2); CARBON DIOXIDE 24 mmol/L (21-31); CHLORIDE 106 mmol/L (97-110); CREATININE 5.21 mg/dl (0.44-1.00); Estimated GFR 9 mL/min (>60); GLUCOSE 89 mg/dl (70-220); POTASSIUM 3.9 mmol/L (3.5-5.1); SODIUM 138 mmol/L (135-144)
[2019-01-04] MEDS: SOD FERRIC GLUC COMPLX 125 MG in SOD CHLORIDE 0.9% 100 ML IVPB (13:45)
[2019-01-04] MEDS: ACETAMINOPHEN 325 MG TAB PO (14:12)
[2019-01-04] MEDS: HEPARIN 1000 UNITS/ML 10 ML INJ CATHETER (16:38)
[2019-01-04] MEDS: ESCITALOPRAM 10 MG TAB PO (21:03)
[2019-01-04] MEDS: ATORVASTATIN 80 MG TAB PO (21:03)
[2019-01-04] MEDS: INSULIN GLARGINE [LANTus] (100 UNITS/ML) SYG SC (21:37)
[2019-01-05] MEDS: ACCU-CHEK XX (02:00)
[2019-01-05] MEDS: FUROSEMIDE 20 MG INJ IV (05:36)
[2019-01-05 06:58] LABS: ADD MAN DIFF? NO
[2019-01-05 07:39] LABS: ANION GAP 6 (5-13); BLOOD UREA NITROGEN 22 mg/dl (7-20); CALCIUM 7.9 mg/dl (8.4-10.2); CARBON DIOXIDE 28 mmol/L (21-31); CHLORIDE 100 mmol/L (97-110); CREATININE 4.16 mg/dl (0.44-1.00); Estimated GFR 11 mL/min (>60); GLUCOSE 81 mg/dl (70-220); MAGNESIUM 1.8 mg/dl (1.7-2.5); PHOSPHORUS 3.7 mg/dl (2.5-4.9); POTASSIUM 3.8 mmol/L (3.5-5.1); SODIUM 134 mmol/L (135-144)
[2019-01-05] MEDS: INSULIN ASPART [NOVOLOG] 3 ML PEN SC ×2 (07:55→11:50)
[2019-01-05] MEDS: ASPIRIN 81 MG TAB PO (08:17)
[2019-01-05] MEDS: HEPARIN 5,000 UNIT/1 ML VIAL SC (08:21)
[2019-01-05 09:17] LABS: BASOPHIL # 0.1 10^3/ul (0.0-0.1); BASOPHILS % 0.7 % (0.0-2.0); EOSINOPHILS # 0.3 10^3/ul (0.0-0.5); EOSINOPHILS % 2.6 % (0.0-7.0); HEMATOCRIT 31.4 % (37.0-47.0); LYMPHOCYTES # 1.6 10^3/ul (0.8-2.9); LYMPHOCYTES % 16.2 % (15.0-51.0); MEAN CORPUSCULAR HEMOGLOBIN 30.2 pg (29.0-33.0); MEAN CORPUSCULAR HGB CONC 31.8 g/dl (32.0-37.0); MEAN CORPUSCULAR VOLUME 94.9 fl (82.0-101.0); MEAN PLATELET VOLUME 8.9 fl (7.4-10.4); MONOCYTE # 1.3 10^3/ul (0.3-0.9); MONOCYTES % 13.8 % (0.0-11.0); NEUTROPHIL # 6.3 10^3/ul (1.6-7.5); PLATELET COUNT 278 10^3/UL (140-415); RED BLOOD COUNT 3.31 10^6/ul (4.20-5.40); RED CELL DISTRIBUTION WIDTH 13.9 % (11.5-14.5)
[2019-01-05 09:17] LABS: WHITE BLOOD COUNT 9.6 10^3/ul (4.8-10.8)
[2019-01-05] MEDS: LEVETIRACETAM 750 MG TAB PO (11:14)
[2019-01-05] MEDS: NIFEdipine (XL) 90 MG TAB PO (11:15)
[2019-01-05] MEDS: HEPARIN 1000 UNITS/ML 10 ML INJ CATHETER (16:11)
== END 2019-01-05 17:54 | disposition home or self-care (01) | DRG 291 ==
LOC: E/R 21:24 → TEL 23:42
PROC: 0W993ZZ Drainage of Right Pleural Cavity, Percutaneous Approach (ICD-10-PCS; principal; 2019-01-02)
PROC: 5A1D70Z Performance of Urinary Filtration, Intermittent, Less than 6 Hours Per Day (ICD-10-PCS; 2019-01-02)
PROC: 0JH63XZ Insertion of Tunneled Vascular Access Device into Chest Subcutaneous Tissue and Fascia, Percutaneous Approach (ICD-10-PCS; 2019-01-03)
PROC: 02H633Z Insertion of Infusion Device into Right Atrium, Percutaneous Approach (ICD-10-PCS; 2019-01-03)
PROC: B543ZZA Ultrasonography of Right Jugular Veins, Guidance (ICD-10-PCS; 2019-01-03)
PROC: B513ZZA Fluoroscopy of Right Jugular Veins, Guidance (ICD-10-PCS; 2019-01-03)
DX: I13.2 Hypertensive heart and chronic kidney disease with heart failure and with stage 5 chronic kidney disease, or end stage renal disease (principal); N18.6 End stage renal disease; I50.33 Acute on chronic diastolic (congestive) heart failure; J96.01 Acute respiratory failure with hypoxia; J18.9 Pneumonia, unspecified organism; I16.1 Hypertensive emergency; J90 Pleural effusion, not elsewhere classified; N17.9 Acute kidney failure, unspecified; F32.9 Major depressive disorder, single episode, unspecified; E66.9 Obesity, unspecified; D64.9 Anemia, unspecified; E78.5 Hyperlipidemia, unspecified; E11.22 Type 2 diabetes mellitus with diabetic chronic kidney disease; G40.909 Epilepsy, unspecified, not intractable, without status epilepticus; Z79.4 Long term (current) use of insulin; Z79.82 Long term (current) use of aspirin; Z88.0 Allergy status to penicillin; Z86.73 Personal history of transient ischemic attack (TIA), and cerebral infarction without residual deficits
CPT/HCPCS: 36415; 36558; 71045; 71250; 76775; 76942; 78582; 80048; 80053; 81001; 81003; 82043; 82728; 82962; 83036; 83540; 83735; 83880; 84100; 84155; 84300; 84484; 84702; 85025; 85378; 85610; 85730; 86704; 86709; 86803; 87081; 87340; 88104; 88305; 89051; 90935; 93005; 93306; 93970; 93971; 94664; 99291-25

== ENCOUNTER 2019-01-14 20:01 | Inpatient (IN) | payer OTHER ==
[2019-01-14] MEDS: ACETAMINOPHEN 325 MG TAB PO (20:42)
[2019-01-14] MEDS: ONDANSETRON 4 MG INJ IV (20:42)
[2019-01-14] MEDS: morphine 4 MG/ML VIAL IV (20:42)
[2019-01-14 20:49] LABS: WHITE BLOOD COUNT 27.4 10^3/ul (4.8-10.8)
[2019-01-14 20:49] LABS: ABNORMAL IP MESSAGE 1; HEMATOCRIT 35.9 % (37.0-47.0); HEMOGLOBIN 11.4 g/dl (12.0-16.0); MEAN CORPUSCULAR HEMOGLOBIN 30.2 pg (29.0-33.0); MEAN CORPUSCULAR HGB CONC 31.8 g/dl (32.0-37.0); MEAN CORPUSCULAR VOLUME 95.2 fl (82.0-101.0); MEAN PLATELET VOLUME 10.6 fl (7.4-10.4); PLATELET COUNT 202 10^3/UL (140-415); RED BLOOD COUNT 3.77 10^6/ul (4.20-5.40); RED CELL DISTRIBUTION WIDTH 13.2 % (11.5-14.5)
[2019-01-14 20:51] LABS: ADD MAN DIFF? YES; POSITIVE DIFF @See below
[2019-01-14 21:07] LABS: ALANINE AMINOTRANSFERASE 32 IU/L (13-69); ALBUMIN 3.5 g/dl (3.3-4.9); ALBUMIN/GLOBULIN RATIO 0.85; ALKALINE PHOSPHATASE 345 IU/L (42-121); ANION GAP 14 (5-13); ASPARTATE AMINO TRANSFERASE 87 IU/L (15-46); BILIRUBIN,INDIRECT 0.4 mg/dl (0-1.1); BILIRUBIN,TOTAL 0.4 mg/dl (0.2-1.3); BLOOD UREA NITROGEN 15 mg/dl (7-20); CALCIUM 9.3 mg/dl (8.4-10.2); CARBON DIOXIDE 26 mmol/L (21-31); CHLORIDE 95 mmol/L (97-110); Estimated GFR 23 mL/min (>60); GLUCOSE 226 mg/dl (70-220); POTASSIUM 4.5 mmol/L (3.5-5.1); SODIUM 135 mmol/L (135-144); TOTAL PROTEIN 7.6 g/dl (6.1-8.1)
[2019-01-14 21:18] LABS: TROPONIN-I 0.065 ng/ml (0.000-0.120)
[2019-01-14] MEDS: VANCOMYCIN 1 GM (PMX) 250 ML IVPB (21:20)
[2019-01-14 21:31] LABS: BAND NEUTROPHILS #M 2.7 10^3/ul (0.0-0.6); BAND NEUTROPHILS % (M) 10 % (0-4); ERYTHROBLAST% (NRBC) (M) 1 % (0-0); MONOCYTES % (M) 4 % (0-11); PLATELET ESTIMATE NORMAL; POIKILOCYTOSIS 1+ (0-0); POLYCHROMASIA 1+ (0-0); SEG NEUT #M 24.3 10^3/ul (1.6-7.5); SEGMENTED NEUTROPHILS (M) % 86 % (39-77); SMUDGE%M 1 % (0-0)
[2019-01-14 21:35] LABS: INR 1.06; PROTIME 13.9 Sec (11.9-14.9); PT RATIO 1.1
[2019-01-14 21:36] LABS: PARTIAL THROMBOPLASTIN TIME 35.2 Sec (23.0-35.0)
[2019-01-14] MEDS: AZTREONAM 1 GM/NS (PMX) 50 ML IVPB (22:59)
[2019-01-14] MEDS ORDERED: ACETAMINOPHEN 325 MG TAB PO (23:00)
[2019-01-14] MEDS ORDERED: ONDANSETRON 4 MG INJ IV (23:00)
[2019-01-15] MEDS ORDERED: NACL 0.9% 3 ML SYG IV
[2019-01-15] MEDS ORDERED: ONDANSETRON 4 MG INJ IV
[2019-01-15] MEDS ORDERED: GLUCOSE GEL 15 GRAM TUBE PO ×2
[2019-01-15] MEDS ORDERED: GLUCOSE GEL 15 GRAM TUBE BUCCAL
[2019-01-15] MEDS ORDERED: ALBUTEROL/IPRATROPIUM (NEB) 3 ML AMP HHN
[2019-01-15] MEDS ORDERED: DEXTROSE 50% 50 ML SYRINGE IV ×2
[2019-01-15] MEDS ORDERED: GLUCAGON 1 MG INJ IM
[2019-01-15 01:17] LABS: LACTIC ACID 1.7 mmol/L (0.5-2.0)
[2019-01-15] MEDS: LEVETIRACETAM 500 MG TAB PO ×3 (01:48→20:08)
[2019-01-15] MEDS: traMADol 50 MG TAB PO (01:48)
[2019-01-15] MEDS: LABETALOL HCL 20MG INJ IV (01:49)
[2019-01-15] MEDS: ACCU-CHEK XX (01:57)
[2019-01-15] MEDS ORDERED: DIPHENHYDRAMINE 50 MG CAP PO (02:00)
[2019-01-15] MEDS ORDERED: LEVETIRACETAM 750 MG TAB PO ×2 (02:00)
[2019-01-15] MEDS: HYDROCODONE/APAP (5/325) TAB PO ×2 (04:09→23:37)
[2019-01-15 06:48] LABS: HEMATOCRIT 30.7 % (37.0-47.0); HEMOGLOBIN 9.6 g/dl (12.0-16.0); MEAN CORPUSCULAR HEMOGLOBIN 30.1 pg (29.0-33.0); MEAN CORPUSCULAR HGB CONC 31.3 g/dl (32.0-37.0); MEAN CORPUSCULAR VOLUME 96.2 fl (82.0-101.0); MEAN PLATELET VOLUME 10.3 fl (7.4-10.4); PLATELET COUNT 195 10^3/UL (140-415); RED BLOOD COUNT 3.19 10^6/ul (4.20-5.40); RED CELL DISTRIBUTION WIDTH 13.4 % (11.5-14.5)
[2019-01-15 06:49] LABS: ABNORMAL IP MESSAGE 1
[2019-01-15 07:02] LABS: ALANINE AMINOTRANSFERASE 31 IU/L (13-69); ALBUMIN 2.9 g/dl (3.3-4.9); ALBUMIN/GLOBULIN RATIO 0.93; ALKALINE PHOSPHATASE 287 IU/L (42-121); ANION GAP 14 (5-13); ASPARTATE AMINO TRANSFERASE 45 IU/L (15-46); BILIRUBIN,INDIRECT 0.2 mg/dl (0-1.1); BILIRUBIN,TOTAL 0.2 mg/dl (0.2-1.3); BLOOD UREA NITROGEN 23 mg/dl (7-20); CALCIUM 8.8 mg/dl (8.4-10.2); CARBON DIOXIDE 24 mmol/L (21-31); CHLORIDE 97 mmol/L (97-110); CREATININE 2.94 mg/dl (0.44-1.00); Estimated GFR 17 mL/min (>60); GLUCOSE 232 mg/dl (70-220); MAGNESIUM 1.6 mg/dl (1.7-2.5); POTASSIUM 3.8 mmol/L (3.5-5.1); SODIUM 135 mmol/L (135-144)
[2019-01-15 07:10] LABS: ADD MAN DIFF? YES; POSITIVE DIFF @See below
[2019-01-15] MEDS: INSULIN ASPART [NOVOLOG] 3 ML PEN SC ×4 (08:01→20:17)
[2019-01-15] MEDS: NIFEdipine (XL) 90 MG TAB PO (08:22)
[2019-01-15] MEDS: FUROSEMIDE 20 MG TAB PO (08:22)
[2019-01-15] MEDS: ASPIRIN 81 MG TAB PO (08:23)
[2019-01-15] MEDS: HEPARIN 5,000 UNIT/1 ML VIAL SC ×2 (08:28→20:18)
[2019-01-15] MEDS ORDERED: VANCOMYCIN IV PER PHARMACY XX (09:00)
[2019-01-15] MEDS ORDERED: AZTREONAM 1 GM/NS (PMX) 50 ML IVPB (09:00)
[2019-01-15 10:13] LABS: ANISOCYTOSIS 1+ (0-0); BAND NEUTROPHILS #M 3.8 10^3/ul (0.0-0.6); BAND NEUTROPHILS % (M) 16 % (0-4); LYMPHOCYTES #M 0.9 10^3/ul (0.8-2.9); LYMPHOCYTES % (M) 4 % (15-51); MONOCYTE #M 0.2 10^3/ul (0.3-0.9); MONOCYTES % (M) 1 % (0-11); MYELOCYTES #M 0.2 10^3/ul (0.0-0.0); MYELOCYTES % (M) 1 % (0-0); PLATELET ESTIMATE NORMAL; POIKILOCYTOSIS 1+ (0-0); POLYCHROMASIA 1+ (0-0); PROMYELOCYTES #M 0.2 10^3/ul (0-0); PROMYELOCYTES % (M) 1 % (0-0); SEG NEUT #M 19.4 10^3/ul (1.6-7.5); SEGMENTED NEUTROPHILS (M) % 77 % (39-77); SMUDGE%M 7 % (0-0)
[2019-01-15] MEDS ORDERED: GENTAMICIN IV PER PHARMACY XX (11:00)
[2019-01-15] MEDS: VANCOMYCIN 500 MG (PMX) 100 ML IVPB (11:15)
[2019-01-15] MEDS: GENTAMICIN 120 MG/NS (PMX) 100 ML IVPB (15:55)
[2019-01-15] MEDS ORDERED: GENTAMICIN 80 MG/NS (PMX) 50 ML IVPB (16:00)
[2019-01-15] MEDS: SOD CHLORIDE 0.9% 250 ML IV (18:17)
[2019-01-15] MEDS: ATORVASTATIN 80 MG TAB PO (20:07)
[2019-01-15] MEDS: ACETAMINOPHEN 325 MG TAB PO (20:07)
[2019-01-15] MEDS: ESCITALOPRAM 10 MG TAB PO (20:08)
[2019-01-15] MEDS: LACTOBACILLUS RHAMNOSUS CAP PO (20:08)
[2019-01-15] MEDS: INSULIN GLARGINE [LANTus] (100 UNITS/ML) SYG SC (20:17)
[2019-01-15] MEDS ORDERED: INSULIN GLARGINE [LANTus] (100 UNITS/ML) SYG SC (21:00)
[2019-01-16] MEDS: ACCU-CHEK XX (02:18)
[2019-01-16 05:23] LABS: WHITE BLOOD COUNT 29.1 10^3/ul (4.8-10.8)
[2019-01-16 05:23] LABS: ABNORMAL IP MESSAGE 1; HEMATOCRIT 29.7 % (37.0-47.0); HEMOGLOBIN 9.3 g/dl (12.0-16.0); MEAN CORPUSCULAR HEMOGLOBIN 29.9 pg (29.0-33.0); MEAN CORPUSCULAR HGB CONC 31.3 g/dl (32.0-37.0); MEAN CORPUSCULAR VOLUME 95.5 fl (82.0-101.0); MEAN PLATELET VOLUME 10.4 fl (7.4-10.4); PLATELET COUNT 234 10^3/UL (140-415); RED BLOOD COUNT 3.11 10^6/ul (4.20-5.40); RED CELL DISTRIBUTION WIDTH 13.8 % (11.5-14.5)
[2019-01-16 05:28] LABS: ADD MAN DIFF? YES; POSITIVE DIFF @See below
[2019-01-16 05:38] LABS: ALANINE AMINOTRANSFERASE 28 IU/L (13-69); ALBUMIN 2.7 g/dl (3.3-4.9); ALBUMIN/GLOBULIN RATIO 0.87; ALKALINE PHOSPHATASE 281 IU/L (42-121); ANION GAP 14 (5-13); ASPARTATE AMINO TRANSFERASE 52 IU/L (15-46); BLOOD UREA NITROGEN 48 mg/dl (7-20); CALCIUM 8.7 mg/dl (8.4-10.2); CARBON DIOXIDE 25 mmol/L (21-31); CHLORIDE 93 mmol/L (97-110); CREATININE 4.77 mg/dl (0.44-1.00); Estimated GFR 10 mL/min (>60); GLUCOSE 220 mg/dl (70-220); SODIUM 132 mmol/L (135-144); TOTAL PROTEIN 5.8 g/dl (6.1-8.1)
[2019-01-16 07:14] LABS: HEMOGLOBIN A1C 5.8 % (0-5.9)
[2019-01-16] MEDS: INSULIN ASPART [NOVOLOG] 3 ML PEN SC ×5 (07:48→20:55)
[2019-01-16] MEDS: NIFEdipine (XL) 90 MG TAB PO (08:30)
[2019-01-16] MEDS: LEVETIRACETAM 500 MG TAB PO ×2 (08:30→20:54)
[2019-01-16] MEDS: LACTOBACILLUS RHAMNOSUS CAP PO ×2 (08:30→20:54)
[2019-01-16] MEDS: ASPIRIN 81 MG TAB PO (08:30)
[2019-01-16] MEDS: HEPARIN 5,000 UNIT/1 ML VIAL SC ×2 (08:40→20:57)
[2019-01-16] MEDS: traMADol 50 MG TAB PO (09:17)
[2019-01-16 09:23] LABS: ANISOCYTOSIS 1+ (0-0); BAND NEUTROPHILS #M 5.5 10^3/ul (0.0-0.6); BAND NEUTROPHILS % (M) 19 % (0-4); LYMPHOCYTES #M 0.5 10^3/ul (0.8-2.9); LYMPHOCYTES % (M) 2 % (15-51); MONOCYTE #M 2.6 10^3/ul (0.3-0.9); MONOCYTES % (M) 9 % (0-11); OVALOCYTES 1+ (0-0); PLATELET ESTIMATE NORMAL; POIKILOCYTOSIS 1+ (0-0); POLYCHROMASIA 2+ (0-0); REACTIVE LYMPHOCYTES #M 0.2 10^3/ul (0.0-0.0); REACTIVE LYMPHOCYTES% (M) 1 % (0-0); SEG NEUT #M 21.7 10^3/ul (1.6-7.5); SEGMENTED NEUTROPHILS (M) % 69 % (39-77); SMUDGE%M 10 % (0-0); TARGET CELLS 1+ (0-0)
[2019-01-16] MEDS ORDERED: GENTAMICIN 80 MG/NS (PMX) 50 ML IVPB (15:00)
[2019-01-16] MEDS: ACETAMINOPHEN 325 MG TAB PO (15:34)
[2019-01-16] MEDS: RIFAMPIN 300 MG CAP PO (15:35)
[2019-01-16] MEDS: ATORVASTATIN 80 MG TAB PO (20:54)
[2019-01-16] MEDS: ESCITALOPRAM 10 MG TAB PO (20:54)
[2019-01-16] MEDS: INSULIN GLARGINE [LANTus] (100 UNITS/ML) SYG SC (20:57)
[2019-01-17] MEDS: HYDROCODONE/APAP (5/325) TAB PO ×4 (01:14→21:56)
[2019-01-17] MEDS: ACCU-CHEK XX (02:00)
[2019-01-17] MEDS: traMADol 50 MG TAB PO ×2 (03:53→12:22)
[2019-01-17] MEDS: ACETAMINOPHEN 325 MG TAB PO ×2 (03:53→08:30)
[2019-01-17 05:51] LABS: WHITE BLOOD COUNT 33.8 10^3/ul (4.8-10.8)
[2019-01-17 05:51] LABS: ABNORMAL IP MESSAGE 1; HEMATOCRIT 29.7 % (37.0-47.0); HEMOGLOBIN 9.4 g/dl (12.0-16.0); MEAN CORPUSCULAR HEMOGLOBIN 30.2 pg (29.0-33.0); MEAN CORPUSCULAR HGB CONC 31.6 g/dl (32.0-37.0); MEAN CORPUSCULAR VOLUME 95.5 fl (82.0-101.0); MEAN PLATELET VOLUME 9.7 fl (7.4-10.4); PLATELET COUNT 298 10^3/UL (140-415); RED BLOOD COUNT 3.11 10^6/ul (4.20-5.40); RED CELL DISTRIBUTION WIDTH 13.8 % (11.5-14.5)
[2019-01-17 05:55] LABS: ADD MAN DIFF? YES; POSITIVE DIFF @See below
[2019-01-17 07:04] LABS: ANION GAP 11 (5-13); BLOOD UREA NITROGEN 70 mg/dl (7-20); CALCIUM 8.7 mg/dl (8.4-10.2); CARBON DIOXIDE 24 mmol/L (21-31); CHLORIDE 94 mmol/L (97-110); CREATININE 5.99 mg/dl (0.44-1.00); Estimated GFR 7 mL/min (>60); GLUCOSE 175 mg/dl (70-220); MAGNESIUM 2.1 mg/dl (1.7-2.5); PHOSPHORUS 3.9 mg/dl (2.5-4.9); POTASSIUM 4.4 mmol/L (3.5-5.1); SODIUM 129 mmol/L (135-144)
[2019-01-17 07:12] LABS: VANCOMYCIN,RANDOM 18.3 ug/ml
[2019-01-17 07:33] LABS: ANISOCYTOSIS 1+ (0-0); BAND NEUTROPHILS #M 3.3 10^3/ul (0.0-0.6); BAND NEUTROPHILS % (M) 10 % (0-4); BURR CELLS 1+ (0-0); LYMPHOCYTES #M 0.6 10^3/ul (0.8-2.9); LYMPHOCYTES % (M) 2 % (15-51); MONOCYTE #M 2.7 10^3/ul (0.3-0.9); MONOCYTES % (M) 8 % (0-11); MYELOCYTES #M 0.3 10^3/ul (0.0-0.0); MYELOCYTES % (M) 1 % (0-0); PLATELET ESTIMATE NORMAL; POIKILOCYTOSIS 1+ (0-0); SEG NEUT #M 27.8 10^3/ul (1.6-7.5); SEGMENTED NEUTROPHILS (M) % 79 % (39-77); SMUDGE%M 22 % (0-0)
[2019-01-17] MEDS: INSULIN ASPART [NOVOLOG] 3 ML PEN SC ×7 (08:01→20:46)
[2019-01-17] MEDS: LEVETIRACETAM 500 MG TAB PO ×2 (08:08→20:39)
[2019-01-17] MEDS: RIFAMPIN 300 MG CAP PO (08:08)
[2019-01-17] MEDS: ASPIRIN 81 MG TAB PO (08:09)
[2019-01-17] MEDS: NIFEdipine (XL) 90 MG TAB PO (08:09)
[2019-01-17] MEDS: LACTOBACILLUS RHAMNOSUS CAP PO ×2 (08:09→20:39)
[2019-01-17] MEDS: HEPARIN 5,000 UNIT/1 ML VIAL SC ×2 (08:31→21:06)
[2019-01-17] MEDS: VANCOMYCIN 1 GM 250 ML IVPB (20:33)
[2019-01-17] MEDS: ATORVASTATIN 80 MG TAB PO (20:38)
[2019-01-17] MEDS: ESCITALOPRAM 10 MG TAB PO (20:38)
[2019-01-17] MEDS: INSULIN GLARGINE [LANTus] (100 UNITS/ML) SYG SC (20:50)
[2019-01-18] MEDS: ACCU-CHEK XX (02:00)
[2019-01-18] MEDS: HYDROCODONE/APAP (5/325) TAB PO ×2 (03:37→14:48)
[2019-01-18 05:36] LABS: ABNORMAL IP MESSAGE 1; HEMATOCRIT 30.7 % (37.0-47.0); HEMOGLOBIN 9.8 g/dl (12.0-16.0); MEAN CORPUSCULAR HEMOGLOBIN 29.9 pg (29.0-33.0); MEAN CORPUSCULAR HGB CONC 31.9 g/dl (32.0-37.0); MEAN CORPUSCULAR VOLUME 93.6 fl (82.0-101.0); MEAN PLATELET VOLUME 9.6 fl (7.4-10.4); PLATELET COUNT 332 10^3/UL (140-415); RED BLOOD COUNT 3.28 10^6/ul (4.20-5.40); RED CELL DISTRIBUTION WIDTH 13.7 % (11.5-14.5)
[2019-01-18 05:46] LABS: ADD MAN DIFF? YES; POSITIVE DIFF @See below
[2019-01-18 06:15] LABS: ANION GAP 14 (5-13); BLOOD UREA NITROGEN 88 mg/dl (7-20); CARBON DIOXIDE 23 mmol/L (21-31); CHLORIDE 91 mmol/L (97-110); CREATININE 6.41 mg/dl (0.44-1.00); Estimated GFR 7 mL/min (>60); GLUCOSE 116 mg/dl (70-220); MAGNESIUM 2.1 mg/dl (1.7-2.5); POTASSIUM 4.2 mmol/L (3.5-5.1); SODIUM 128 mmol/L (135-144)
[2019-01-18 06:42] LABS: ANISOCYTOSIS 1+ (0-0); BAND NEUTROPHILS #M 3.5 10^3/ul (0.0-0.6); BAND NEUTROPHILS % (M) 13 % (0-4); HYPOCHROMASIA 1+ (0-0); LYMPHOCYTES #M 1.3 10^3/ul (0.8-2.9); LYMPHOCYTES % (M) 5 % (15-51); METAMYELOCYTES #M 0.2 10^3/ul (0.0-0.0); METAMYELOCYTES %M 1 % (0-0); MONOCYTE #M 1.6 10^3/ul (0.3-0.9); MONOCYTES % (M) 6 % (0-11); PLATELET ESTIMATE NORMAL; POIKILOCYTOSIS 1+ (0-0); POLYCHROMASIA 1+ (0-0); SEG NEUT #M 21.2 10^3/ul (1.6-7.5); SEGMENTED NEUTROPHILS (M) % 75 % (39-77); SMUDGE%M 8 % (0-0)
[2019-01-18] MEDS: INSULIN ASPART [NOVOLOG] 3 ML PEN SC ×7 (08:00→20:30)
[2019-01-18] MEDS: HEPARIN 5,000 UNIT/1 ML VIAL SC ×2 (08:14→20:30)
[2019-01-18] MEDS: FUROSEMIDE 20 MG TAB PO (08:26)
[2019-01-18] MEDS: LEVETIRACETAM 500 MG TAB PO ×2 (08:26→20:25)
[2019-01-18] MEDS: LACTOBACILLUS RHAMNOSUS CAP PO ×2 (08:26→20:25)
[2019-01-18] MEDS: ASPIRIN 81 MG TAB PO (08:26)
[2019-01-18] MEDS: RIFAMPIN 300 MG CAP PO (09:00)
[2019-01-18] MEDS: NIFEdipine (XL) 90 MG TAB PO (09:00)
[2019-01-18] MEDS: EPOETIN 10000 UNITS/1 ML INJ (ESRD) SC (16:47)
[2019-01-18] MEDS: ESCITALOPRAM 10 MG TAB PO (20:25)
[2019-01-18] MEDS: ATORVASTATIN 80 MG TAB PO (20:25)
[2019-01-18] MEDS: INSULIN GLARGINE [LANTus] (100 UNITS/ML) SYG SC (20:30)
[2019-01-19] MEDS: hydrALAzine 20 MG INJ IV ×2 (00:17→19:06)
[2019-01-19] MEDS: ACCU-CHEK XX (02:00)
[2019-01-19] MEDS: BISACODYL 10 MG SUPP PR (02:30)
[2019-01-19 05:49] LABS: WHITE BLOOD COUNT 30.1 10^3/ul (4.8-10.8)
[2019-01-19 05:49] LABS: ABNORMAL IP MESSAGE 1; HEMATOCRIT 30.7 % (37.0-47.0); MEAN CORPUSCULAR HEMOGLOBIN 29.9 pg (29.0-33.0); MEAN CORPUSCULAR HGB CONC 32.6 g/dl (32.0-37.0); MEAN CORPUSCULAR VOLUME 91.6 fl (82.0-101.0); MEAN PLATELET VOLUME 9.2 fl (7.4-10.4); PLATELET COUNT 377 10^3/UL (140-415); RED BLOOD COUNT 3.35 10^6/ul (4.20-5.40); RED CELL DISTRIBUTION WIDTH 13.8 % (11.5-14.5)
[2019-01-19 05:59] LABS: ADD MAN DIFF? YES; POSITIVE DIFF @See below
[2019-01-19 06:33] LABS: ANION GAP 13 (5-13); BLOOD UREA NITROGEN 34 mg/dl (7-20); CALCIUM 7.9 mg/dl (8.4-10.2); CARBON DIOXIDE 26 mmol/L (21-31); CHLORIDE 94 mmol/L (97-110); CREATININE 3.33 mg/dl (0.44-1.00); Estimated GFR 15 mL/min (>60); GLUCOSE 141 mg/dl (70-220); PHOSPHORUS 2.8 mg/dl (2.5-4.9); POTASSIUM 4.3 mmol/L (3.5-5.1); SODIUM 133 mmol/L (135-144)
[2019-01-19] MEDS: INSULIN ASPART [NOVOLOG] 3 ML PEN SC ×7 (08:00→20:49)
[2019-01-19] MEDS: POLYETHYLENE GLYCOL 17 GM PACKET NGT (08:24)
[2019-01-19] MEDS: DOCUSATE SODIUM 100 MG CAP PO ×2 (08:25→20:54)
[2019-01-19] MEDS: NIFEdipine (XL) 90 MG TAB PO (08:25)
[2019-01-19] MEDS: ASPIRIN 81 MG TAB PO (08:25)
[2019-01-19] MEDS: LACTOBACILLUS RHAMNOSUS CAP PO ×2 (08:26→20:54)
[2019-01-19] MEDS: FUROSEMIDE 20 MG TAB PO (08:26)
[2019-01-19] MEDS: LEVETIRACETAM 500 MG TAB PO ×2 (08:26→20:54)
[2019-01-19] MEDS: HEPARIN 5,000 UNIT/1 ML VIAL SC ×2 (08:40→20:52)
[2019-01-19] MEDS: HYDROCODONE/APAP (5/325) TAB PO (08:48)
[2019-01-19 08:53] LABS: ANISOCYTOSIS 1+ (0-0); BAND NEUTROPHILS #M 1.2 10^3/ul (0.0-0.6); BAND NEUTROPHILS % (M) 4 % (0-4); LYMPHOCYTES #M 0.6 10^3/ul (0.8-2.9); LYMPHOCYTES % (M) 2 % (15-51); MONOCYTE #M 1.5 10^3/ul (0.3-0.9); MONOCYTES % (M) 5 % (0-11); MYELOCYTES #M 0.6 10^3/ul (0.0-0.0); MYELOCYTES % (M) 2 % (0-0); PLATELET ESTIMATE NORMAL; SEG NEUT #M 26.5 10^3/ul (1.6-7.5); SEGMENTED NEUTROPHILS (M) % 87 % (39-77); SMUDGE%M 38 % (0-0)
[2019-01-19 15:37] LABS: PROCALCITONIN 28.57 ng/mL (<0.10)
[2019-01-19] MEDS: ESCITALOPRAM 10 MG TAB PO (20:54)
[2019-01-19] MEDS: ATORVASTATIN 80 MG TAB PO (20:54)
[2019-01-19] MEDS: INSULIN GLARGINE [LANTus] (100 UNITS/ML) SYG SC (20:56)
[2019-01-20] MEDS: ACCU-CHEK XX (02:00)
[2019-01-20] MEDS: HYDROCODONE/APAP (5/325) TAB PO ×4 (02:17→17:35)
[2019-01-20 06:11] LABS: ABNORMAL IP MESSAGE 1; HEMATOCRIT 28.7 % (37.0-47.0); HEMOGLOBIN 9.2 g/dl (12.0-16.0); MEAN CORPUSCULAR HEMOGLOBIN 29.7 pg (29.0-33.0); MEAN CORPUSCULAR HGB CONC 32.1 g/dl (32.0-37.0); MEAN CORPUSCULAR VOLUME 92.6 fl (82.0-101.0); MEAN PLATELET VOLUME 9.3 fl (7.4-10.4); NUCLEATED RED BLOOD CELLS% 0.1 /100WBC (0.0-0.0); PLATELET COUNT 384 10^3/UL (140-415); RED CELL DISTRIBUTION WIDTH 13.8 % (11.5-14.5)
[2019-01-20 06:11] LABS: WHITE BLOOD COUNT 32.1 10^3/ul (4.8-10.8)
[2019-01-20 06:20] LABS: ADD MAN DIFF? YES; POSITIVE DIFF @See below
[2019-01-20 06:27] LABS: VANCOMYCIN,RANDOM 18.9 ug/ml
[2019-01-20 06:56] LABS: ANION GAP 13 (5-13); BLOOD UREA NITROGEN 48 mg/dl (7-20); CALCIUM 8.5 mg/dl (8.4-10.2); CARBON DIOXIDE 27 mmol/L (21-31); CHLORIDE 95 mmol/L (97-110); CREATININE 4.64 mg/dl (0.44-1.00); Estimated GFR 10 mL/min (>60); GLUCOSE 89 mg/dl (70-220); POTASSIUM 3.8 mmol/L (3.5-5.1); SODIUM 135 mmol/L (135-144)
[2019-01-20 07:01] LABS: ANISOCYTOSIS 1+ (0-0); BAND NEUTROPHILS #M 1.2 10^3/ul (0.0-0.6); BAND NEUTROPHILS % (M) 4 % (0-4); LYMPHOCYTES #M 1.2 10^3/ul (0.8-2.9); LYMPHOCYTES % (M) 4 % (15-51); MONOCYTE #M 0.9 10^3/ul (0.3-0.9); MONOCYTES % (M) 3 % (0-11); PLATELET ESTIMATE NORMAL; POLYCHROMASIA 2+ (0-0); REACTIVE LYMPHOCYTES #M 0.3 10^3/ul (0.0-0.0); REACTIVE LYMPHOCYTES% (M) 1 % (0-0); SEG NEUT #M 28.6 10^3/ul (1.6-7.5); SEGMENTED NEUTROPHILS (M) % 88 % (39-77); SMUDGE%M 5 % (0-0); SPHEROCYTES 1+ (0-0)
[2019-01-20 07:02] LABS: PHOSPHORUS 3.3 mg/dl (2.5-4.9)
[2019-01-20 07:02] LABS: MAGNESIUM 2.3 mg/dl (1.7-2.5)
[2019-01-20] MEDS: INSULIN ASPART [NOVOLOG] 3 ML PEN SC ×7 (07:46→20:51)
[2019-01-20] MEDS: ONDANSETRON 4 MG INJ IV ×2 (07:57→12:10)
[2019-01-20] MEDS: LOPERAMIDE 2 MG CAP PO (07:58)
[2019-01-20] MEDS: traMADol 50 MG TAB PO ×2 (07:58→12:14)
[2019-01-20] MEDS: LEVETIRACETAM 500 MG TAB PO ×2 (07:58→20:43)
[2019-01-20] MEDS: LACTOBACILLUS RHAMNOSUS CAP PO ×2 (07:58→20:42)
[2019-01-20] MEDS: ASPIRIN 81 MG TAB PO (07:59)
[2019-01-20] MEDS: FUROSEMIDE 20 MG TAB PO (08:02)
[2019-01-20] MEDS: DOCUSATE SODIUM 100 MG CAP PO ×2 (08:02→20:42)
[2019-01-20] MEDS: POLYETHYLENE GLYCOL 17 GM PACKET NGT (08:02)
[2019-01-20] MEDS: NIFEdipine (XL) 90 MG TAB PO (08:02)
[2019-01-20] MEDS: HEPARIN 5,000 UNIT/1 ML VIAL SC ×2 (08:20→21:02)
[2019-01-20] MEDS: RIFAMPIN 300 MG CAP PO (17:35)
[2019-01-20] MEDS: VANCOMYCIN 1 GM 250 ML IVPB (20:42)
[2019-01-20] MEDS: ESCITALOPRAM 10 MG TAB PO (20:42)
[2019-01-20] MEDS: ATORVASTATIN 80 MG TAB PO (20:43)
[2019-01-20] MEDS: INSULIN GLARGINE [LANTus] (100 UNITS/ML) SYG SC (21:01)
[2019-01-21] MEDS: ACCU-CHEK XX (01:01)
[2019-01-21] MEDS: HYDROCODONE/APAP (5/325) TAB PO ×3 (05:21→18:58)
[2019-01-21 06:24] LABS: WHITE BLOOD COUNT 26.2 10^3/ul (4.8-10.8)
[2019-01-21 06:24] LABS: ABNORMAL IP MESSAGE 1; HEMOGLOBIN 9.9 g/dl (12.0-16.0); MEAN CORPUSCULAR HEMOGLOBIN 29.8 pg (29.0-33.0); MEAN CORPUSCULAR HGB CONC 31.9 g/dl (32.0-37.0); MEAN CORPUSCULAR VOLUME 93.4 fl (82.0-101.0); MEAN PLATELET VOLUME 9.2 fl (7.4-10.4); PLATELET COUNT 413 10^3/UL (140-415); RED BLOOD COUNT 3.32 10^6/ul (4.20-5.40)
[2019-01-21 06:32] LABS: POSITIVE DIFF @See below
[2019-01-21 06:33] LABS: ADD MAN DIFF? YES
[2019-01-21 06:54] LABS: ANION GAP 11 (5-13); BLOOD UREA NITROGEN 28 mg/dl (7-20); CALCIUM 8.4 mg/dl (8.4-10.2); CARBON DIOXIDE 26 mmol/L (21-31); CHLORIDE 100 mmol/L (97-110); CREATININE 3.12 mg/dl (0.44-1.00); Estimated GFR 16 mL/min (>60); GLUCOSE 133 mg/dl (70-220); POTASSIUM 3.9 mmol/L (3.5-5.1); SODIUM 137 mmol/L (135-144)
[2019-01-21 07:04] LABS: PHOSPHORUS 3.6 mg/dl (2.5-4.9)
[2019-01-21] MEDS: INSULIN ASPART [NOVOLOG] 3 ML PEN SC ×7 (08:00→20:58)
[2019-01-21] MEDS: DOCUSATE SODIUM 100 MG CAP PO ×2 (08:46→20:28)
[2019-01-21] MEDS: RIFAMPIN 300 MG CAP PO (08:46)
[2019-01-21] MEDS: LACTOBACILLUS RHAMNOSUS CAP PO ×2 (08:47→20:26)
[2019-01-21] MEDS: NIFEdipine (XL) 90 MG TAB PO (08:47)
[2019-01-21] MEDS: POLYETHYLENE GLYCOL 17 GM PACKET NGT (08:48)
[2019-01-21] MEDS: ASPIRIN 81 MG TAB PO (08:48)
[2019-01-21] MEDS: LEVETIRACETAM 500 MG TAB PO ×2 (08:48→20:27)
[2019-01-21] MEDS: FUROSEMIDE 20 MG TAB PO (08:48)
[2019-01-21] MEDS: traMADol 50 MG TAB PO (08:50)
[2019-01-21 08:56] LABS: ANISOCYTOSIS 1+ (0-0); BAND NEUTROPHILS #M 0.5 10^3/ul (0.0-0.6); BAND NEUTROPHILS % (M) 2 % (0-4); LYMPHOCYTES % (M) 4 % (15-51); METAMYELOCYTES #M 0.5 10^3/ul (0.0-0.0); METAMYELOCYTES %M 2 % (0-0); MONOCYTE #M 0.7 10^3/ul (0.3-0.9); MONOCYTES % (M) 3 % (0-11); MYELOCYTES #M 0.2 10^3/ul (0.0-0.0); MYELOCYTES % (M) 1 % (0-0); PLATELET ESTIMATE NORMAL; POLYCHROMASIA 1+ (0-0); SEG NEUT #M 23.2 10^3/ul (1.6-7.5); SEGMENTED NEUTROPHILS (M) % 88 % (39-77); SMUDGE%M 31 % (0-0)
[2019-01-21] MEDS: HEPARIN 5,000 UNIT/1 ML VIAL SC ×2 (09:03→20:55)
[2019-01-21] MEDS: ATORVASTATIN 80 MG TAB PO (20:26)
[2019-01-21] MEDS: ESCITALOPRAM 10 MG TAB PO (20:26)
[2019-01-21] MEDS: INSULIN GLARGINE [LANTus] (100 UNITS/ML) SYG SC (20:54)
[2019-01-22] MEDS: traMADol 50 MG TAB PO (00:02)
[2019-01-22] MEDS: hydrALAzine 20 MG INJ IV ×3 (00:04→12:08)
[2019-01-22] MEDS: ACCU-CHEK XX (02:00)
[2019-01-22] MEDS: HYDROCODONE/APAP (5/325) TAB PO (05:52)
[2019-01-22 06:13] LABS: HEMATOCRIT 29.8 % (37.0-47.0); HEMOGLOBIN 9.4 g/dl (12.0-16.0); MEAN CORPUSCULAR HEMOGLOBIN 29.3 pg (29.0-33.0); MEAN CORPUSCULAR HGB CONC 31.5 g/dl (32.0-37.0); MEAN CORPUSCULAR VOLUME 92.8 fl (82.0-101.0); RED BLOOD COUNT 3.21 10^6/ul (4.20-5.40)
[2019-01-22 06:14] LABS: ABNORMAL IP MESSAGE 1; MEAN PLATELET VOLUME 9.4 fl (7.4-10.4); NUCLEATED RED BLOOD CELLS% 0.1 /100WBC (0.0-0.0); PLATELET COUNT 456 10^3/UL (140-415); RED CELL DISTRIBUTION WIDTH 14.2 % (11.5-14.5)
[2019-01-22 06:40] LABS: ANION GAP 11 (5-13); BLOOD UREA NITROGEN 35 mg/dl (7-20); CALCIUM 8.1 mg/dl (8.4-10.2); CARBON DIOXIDE 24 mmol/L (21-31); CHLORIDE 99 mmol/L (97-110); CREATININE 4.03 mg/dl (0.44-1.00); Estimated GFR 12 mL/min (>60); GLUCOSE 90 mg/dl (70-220); POTASSIUM 4.3 mmol/L (3.5-5.1); SODIUM 134 mmol/L (135-144)
[2019-01-22 06:45] LABS: POSITIVE DIFF @See below
[2019-01-22 06:46] LABS: ADD MAN DIFF? YES
[2019-01-22 07:09] LABS: MAGNESIUM 2.1 mg/dl (1.7-2.5)
[2019-01-22 07:09] LABS: PHOSPHORUS 3.5 mg/dl (2.5-4.9)
[2019-01-22] MEDS: INSULIN ASPART [NOVOLOG] 3 ML PEN SC ×4 (07:56→12:15)
[2019-01-22] MEDS: RIFAMPIN 300 MG CAP PO (08:42)
[2019-01-22] MEDS: DOCUSATE SODIUM 100 MG CAP PO (08:42)
[2019-01-22] MEDS: POLYETHYLENE GLYCOL 17 GM PACKET NGT (08:42)
[2019-01-22] MEDS: NIFEdipine (XL) 90 MG TAB PO (08:43)
[2019-01-22] MEDS: LACTOBACILLUS RHAMNOSUS CAP PO (08:43)
[2019-01-22] MEDS: FUROSEMIDE 20 MG TAB PO (08:43)
[2019-01-22] MEDS: ASPIRIN 81 MG TAB PO (08:44)
[2019-01-22] MEDS: LEVETIRACETAM 500 MG TAB PO (08:56)
[2019-01-22] MEDS: HEPARIN 5,000 UNIT/1 ML VIAL SC (09:05)
[2019-01-22 09:15] LABS: ANISOCYTOSIS 1+ (0-0); GIANT THROMBO% (M) 1 % (0-0); HYPOCHROMASIA 2+ (0-0); LYMPHOCYTES #M 0.8 10^3/ul (0.8-2.9); LYMPHOCYTES % (M) 3 % (15-51); METAMYELOCYTES #M 0.2 10^3/ul (0.0-0.0); METAMYELOCYTES %M 1 % (0-0); MONOCYTES % (M) 4 % (0-11); MYELOCYTES #M 0.5 10^3/ul (0.0-0.0); MYELOCYTES % (M) 2 % (0-0); PLATELET ESTIMATE NORMAL; POLYCHROMASIA 1+ (0-0); SEGMENTED NEUTROPHILS (M) % 90 % (39-77); SMUDGE%M 3 % (0-0); TOXIC GRANULATION 2+ (0-0)
== END 2019-01-22 12:50 | disposition short-term general hospital (02) | DRG 314 ==
LOC: E/R 20:01 → 6WM 22:46
PROC: 02PAX3Z Removal of Infusion Device from Heart, External Approach (ICD-10-PCS; 2019-01-15)
PROC: 02H633Z Insertion of Infusion Device into Right Atrium, Percutaneous Approach (ICD-10-PCS; principal; 2019-01-17)
PROC: 5A1D70Z Performance of Urinary Filtration, Intermittent, Less than 6 Hours Per Day (ICD-10-PCS; 2019-01-18)
DX: T80.211A Bloodstream infection due to central venous catheter, initial encounter (principal); A41.02 Sepsis due to Methicillin resistant Staphylococcus aureus; N18.6 End stage renal disease; I12.0 Hypertensive chronic kidney disease with stage 5 chronic kidney disease or end stage renal disease; E87.1 Hypo-osmolality and hyponatremia; G93.40 Encephalopathy, unspecified; E11.22 Type 2 diabetes mellitus with diabetic chronic kidney disease; G40.909 Epilepsy, unspecified, not intractable, without status epilepticus; H54.7 Unspecified visual loss; E78.5 Hyperlipidemia, unspecified; R91.8 Other nonspecific abnormal finding of lung field; R51 Headache; D53.9 Nutritional anemia, unspecified; Z22.322 Carrier or suspected carrier of Methicillin resistant Staphylococcus aureus; Z99.2 Dependence on renal dialysis; Z79.4 Long term (current) use of insulin
CPT/HCPCS: 36415; 36556; 70450; 70551; 71045; 71250; 72125; 73610; 73610-RT; 73630; 73630-LT; 74176; 76856; 76942; 80048; 80053; 80202; 82962; 83036; 83605; 83735; 84100; 84145; 84443; 84484; 84703; 85025; 85610; 85730; 87040; 87081; 87400; 90935; 93005; 93308; 93970; 96374; 96375; 99291-25

== ENCOUNTER 2019-01-23 19:36 | Inpatient (IN) | payer OTHER ==
[2019-01-23] MEDS ORDERED: ACETAMINOPHEN 325 MG TAB PO (23:30)
[2019-01-23] MEDS ORDERED: NACL 0.9% 3 ML SYG IV (23:30)
[2019-01-23] MEDS: HYDROCODONE/APAP (5/325) TAB PO (23:30)
[2019-01-23] MEDS ORDERED: ALBUTEROL/IPRATROPIUM (NEB) 3 ML AMP HHN (23:30)
[2019-01-23] MEDS ORDERED: DEXTROSE 50% 50 ML SYRINGE IV ×2 (23:45)
[2019-01-23] MEDS ORDERED: GLUCOSE GEL 15 GRAM TUBE PO ×2 (23:45)
[2019-01-23] MEDS ORDERED: GLUCOSE GEL 15 GRAM TUBE BUCCAL (23:45)
[2019-01-23] MEDS ORDERED: GLUCAGON 1 MG INJ IM (23:45)
[2019-01-24 01:21] LABS: ADD MAN DIFF? NO
[2019-01-24 01:22] LABS: ABNORMAL IP MESSAGE 1; BASOPHILS % 0.2 % (0.0-2.0); EOSINOPHILS # 0.1 10^3/ul (0.0-0.5); EOSINOPHILS % 0.5 % (0.0-7.0); HEMATOCRIT 27.8 % (37.0-47.0); HEMOGLOBIN 8.9 g/dl (12.0-16.0); LYMPHOCYTES # 0.8 10^3/ul (0.8-2.9); LYMPHOCYTES % 3.6 % (15.0-51.0); MEAN CORPUSCULAR HEMOGLOBIN 29.7 pg (29.0-33.0); MEAN CORPUSCULAR VOLUME 92.7 fl (82.0-101.0); MEAN PLATELET VOLUME 9.1 fl (7.4-10.4); MONOCYTE # 1.7 10^3/ul (0.3-0.9); MONOCYTES % 7.7 % (0.0-11.0); NEUTROPHIL # 18.8 10^3/ul (1.6-7.5); NEUTROPHILS % 85.9 % (39.0-77.0); PLATELET COUNT 420 10^3/UL (140-415); RED CELL DISTRIBUTION WIDTH 14.4 % (11.5-14.5)
[2019-01-24 01:22] LABS: WHITE BLOOD COUNT 21.9 10^3/ul (4.8-10.8)
[2019-01-24 01:24] LABS: POSITIVE DIFF @See below
[2019-01-24 01:43] LABS: ALANINE AMINOTRANSFERASE 16 IU/L (13-69); ALBUMIN 2.7 g/dl (3.3-4.9); ALBUMIN/GLOBULIN RATIO 0.72; ALKALINE PHOSPHATASE 439 IU/L (42-121); ANION GAP 15 (5-13); ASPARTATE AMINO TRANSFERASE 43 IU/L (15-46); BILIRUBIN,INDIRECT 0.1 mg/dl (0-1.1); BILIRUBIN,TOTAL 0.1 mg/dl (0.2-1.3); BLOOD UREA NITROGEN 51 mg/dl (7-20); CALCIUM 7.8 mg/dl (8.4-10.2); CARBON DIOXIDE 21 mmol/L (21-31); CHLORIDE 93 mmol/L (97-110); CREATININE 5.91 mg/dl (0.44-1.00); Estimated GFR 8 mL/min (>60); GLUCOSE 148 mg/dl (70-220); POTASSIUM 4.9 mmol/L (3.5-5.1); SODIUM 129 mmol/L (135-144); TOTAL PROTEIN 6.4 g/dl (6.1-8.1)
[2019-01-24] MEDS: ACCU-CHEK XX (02:00)
[2019-01-24] MEDS: HYDROCODONE/APAP (5/325) TAB PO ×4 (02:33→21:55)
[2019-01-24] MEDS: INSULIN ASPART [NOVOLOG] 3 ML PEN SC ×7 (08:00→21:00)
[2019-01-24] MEDS: BRIMONIDINE 0.2% 5 ML BTL BOTH EYES ×3 (09:43→21:31)
[2019-01-24] MEDS: DORZOLAMIDE/TIMOLOL/PF 0.2 ML DROPERETTE BOTH EYES ×2 (09:44→21:31)
[2019-01-24] MEDS: SODIUM CHLORIDE 1 GM TAB PO ×2 (09:44→21:38)
[2019-01-24] MEDS: LEVETIRACETAM 500 MG TAB PO ×2 (09:44→21:37)
[2019-01-24] MEDS: ASPIRIN 81 MG TAB PO (09:45)
[2019-01-24] MEDS: NIFEdipine (XL) 90 MG TAB PO (09:46)
[2019-01-24] MEDS: HEPARIN 5,000 UNIT/1 ML VIAL SC ×2 (09:56→21:36)
[2019-01-24] MEDS: LINEZOLID 600 MG/D5W (PMX) 300 ML IVPB (11:01)
[2019-01-24] MEDS: METOPROLOL (XL) 25 MG TAB PO (13:36)
[2019-01-24] MEDS ORDERED: VANCOMYCIN IV PER PHARMACY XX (15:30)
[2019-01-24] MEDS: RIFAMPIN 300 MG CAP PO (16:24)
[2019-01-24] MEDS ORDERED: INSULIN GLARGINE [LANTus] (100 UNITS/ML) SYG SC (21:00)
[2019-01-24] MEDS: LATANOPROST 0.005% 2.5 ML OPH BOTH EYES (21:32)
[2019-01-24] MEDS: INSULIN GLARGINE [LANTus] (100 UNITS/ML) SYG SC (21:36)
[2019-01-24] MEDS: ATORVASTATIN 80 MG TAB PO (21:37)
[2019-01-24] MEDS: VANCOMYCIN 1 GM 250 ML IVPB (21:38)
[2019-01-24] MEDS: ESCITALOPRAM 10 MG TAB PO (21:38)
[2019-01-24] MEDS: LACTOBACILLUS RHAMNOSUS CAP PO (21:41)
[2019-01-24] MEDS: SENNA/DOCUSATE NA (8.6MG/50MG) TAB PO (21:54)
[2019-01-25] MEDS: ACCU-CHEK XX (01:23)
[2019-01-25] MEDS: HYDROCODONE/APAP (5/325) TAB PO ×2 (04:01→10:02)
[2019-01-25 06:05] LABS: ADD MAN DIFF? NO
[2019-01-25 06:08] LABS: WHITE BLOOD COUNT 18.8 10^3/ul (4.8-10.8)
[2019-01-25 06:08] LABS: ABNORMAL IP MESSAGE 1; BASOPHILS % 0.2 % (0.0-2.0); EOSINOPHILS # 0.2 10^3/ul (0.0-0.5); EOSINOPHILS % 0.9 % (0.0-7.0); HEMATOCRIT 29.4 % (37.0-47.0); HEMOGLOBIN 9.2 g/dl (12.0-16.0); LYMPHOCYTES # 0.9 10^3/ul (0.8-2.9); LYMPHOCYTES % 4.6 % (15.0-51.0); MEAN CORPUSCULAR HGB CONC 31.3 g/dl (32.0-37.0); MEAN CORPUSCULAR VOLUME 92.7 fl (82.0-101.0); MONOCYTE # 1.5 10^3/ul (0.3-0.9); MONOCYTES % 8.1 % (0.0-11.0); NEUTROPHIL # 15.9 10^3/ul (1.6-7.5); NEUTROPHILS % 84.4 % (39.0-77.0); PLATELET COUNT 431 10^3/UL (140-415); RED BLOOD COUNT 3.17 10^6/ul (4.20-5.40)
[2019-01-25 06:21] LABS: POSITIVE DIFF @See below
[2019-01-25 06:29] LABS: ALANINE AMINOTRANSFERASE 17 IU/L (13-69); ALBUMIN 2.6 g/dl (3.3-4.9); ALBUMIN/GLOBULIN RATIO 0.63; ALKALINE PHOSPHATASE 474 IU/L (42-121); ANION GAP 13 (5-13); ASPARTATE AMINO TRANSFERASE 39 IU/L (15-46); BILIRUBIN,INDIRECT 0.2 mg/dl (0-1.1); BILIRUBIN,TOTAL 0.2 mg/dl (0.2-1.3); BLOOD UREA NITROGEN 62 mg/dl (7-20); CALCIUM 7.6 mg/dl (8.4-10.2); CARBON DIOXIDE 20 mmol/L (21-31); CHLORIDE 97 mmol/L (97-110); CREATININE 6.71 mg/dl (0.44-1.00); Estimated GFR 7 mL/min (>60); GLUCOSE 99 mg/dl (70-220); POTASSIUM 5.4 mmol/L (3.5-5.1); SODIUM 130 mmol/L (135-144); TOTAL PROTEIN 6.7 g/dl (6.1-8.1)
[2019-01-25 06:46] LABS: MAGNESIUM 2.3 mg/dl (1.7-2.5)
[2019-01-25 06:46] LABS: PHOSPHORUS 7.6 mg/dl (2.5-4.9)
[2019-01-25] MEDS: INSULIN ASPART [NOVOLOG] 3 ML PEN SC ×7 (08:00→20:57)
[2019-01-25] MEDS: BRIMONIDINE 0.2% 5 ML BTL BOTH EYES ×4 (08:30→20:50)
[2019-01-25] MEDS: RIFAMPIN 300 MG CAP PO (09:46)
[2019-01-25] MEDS: LACTOBACILLUS RHAMNOSUS CAP PO ×2 (09:46→21:11)
[2019-01-25] MEDS: LEVETIRACETAM 500 MG TAB PO ×2 (09:47→21:11)
[2019-01-25] MEDS: METOPROLOL (XL) 25 MG TAB PO (09:47)
[2019-01-25] MEDS: ASPIRIN 81 MG TAB PO (09:47)
[2019-01-25] MEDS: NIFEdipine (XL) 90 MG TAB PO (09:48)
[2019-01-25] MEDS: SODIUM CHLORIDE 1 GM TAB PO ×2 (09:48→20:49)
[2019-01-25] MEDS: DORZOLAMIDE/TIMOLOL/PF 0.2 ML DROPERETTE BOTH EYES ×2 (09:49→22:21)
[2019-01-25] MEDS: HEPARIN 5,000 UNIT/1 ML VIAL SC ×2 (09:50→20:54)
[2019-01-25 19:23] LABS: HEPATITIS B SURFACE ANTIGEN NEGATIVE (NEGATIVE)
[2019-01-25 19:41] LABS: HEPATITIS B SURFACE ANTIBODY NEGATIVE (NEGATIVE)
[2019-01-25] MEDS: ESCITALOPRAM 10 MG TAB PO (20:48)
[2019-01-25] MEDS: ATORVASTATIN 80 MG TAB PO (20:49)
[2019-01-25] MEDS: LATANOPROST 0.005% 2.5 ML OPH BOTH EYES (21:10)
[2019-01-25] MEDS: SENNA/DOCUSATE NA (8.6MG/50MG) TAB PO (21:11)
[2019-01-25] MEDS: INSULIN GLARGINE [LANTus] (100 UNITS/ML) SYG SC (22:17)
[2019-01-25] MEDS: MIDAZOLAM 1 MG/ML 2 ML INJ (23:49)
[2019-01-25] MEDS: FENTAnyl 50 MCG/ML VIAL (23:49)
[2019-01-25] MEDS: HEPARIN 1000 UNITS/ML 10 ML INJ (23:50)
[2019-01-26] MEDS: ACCU-CHEK XX (01:07)
[2019-01-26 01:29] LABS: TROPONIN-I 0.134 ng/ml (0.000-0.120)
[2019-01-26 05:58] LABS: ADD MAN DIFF? NO
[2019-01-26 06:20] LABS: BASOPHIL # 0.1 10^3/ul (0.0-0.1); BASOPHILS % 0.5 % (0.0-2.0); EOSINOPHILS # 0.1 10^3/ul (0.0-0.5); EOSINOPHILS % 0.7 % (0.0-7.0); HEMATOCRIT 30.1 % (37.0-47.0); HEMOGLOBIN 9.4 g/dl (12.0-16.0); LYMPHOCYTES # 0.8 10^3/ul (0.8-2.9); LYMPHOCYTES % 4.4 % (15.0-51.0); MEAN CORPUSCULAR HEMOGLOBIN 29.1 pg (29.0-33.0); MEAN CORPUSCULAR HGB CONC 31.2 g/dl (32.0-37.0); MEAN CORPUSCULAR VOLUME 93.2 fl (82.0-101.0); MEAN PLATELET VOLUME 9.1 fl (7.4-10.4); MONOCYTE # 1.3 10^3/ul (0.3-0.9); NEUTROPHIL # 16.2 10^3/ul (1.6-7.5); NEUTROPHILS % 85.7 % (39.0-77.0); PLATELET COUNT 451 10^3/UL (140-415); RED BLOOD COUNT 3.23 10^6/ul (4.20-5.40); RED CELL DISTRIBUTION WIDTH 14.3 % (11.5-14.5)
[2019-01-26 06:20] LABS: WHITE BLOOD COUNT 18.8 10^3/ul (4.8-10.8)
[2019-01-26 06:30] LABS: ANION GAP 17 (5-13); BLOOD UREA NITROGEN 72 mg/dl (7-20); CALCIUM 7.6 mg/dl (8.4-10.2); CARBON DIOXIDE 16 mmol/L (21-31); CHLORIDE 98 mmol/L (97-110); CREATININE 7.28 mg/dl (0.44-1.00); Estimated GFR 6 mL/min (>60); GLUCOSE 84 mg/dl (70-220); POTASSIUM 5.1 mmol/L (3.5-5.1); SODIUM 131 mmol/L (135-144)
[2019-01-26 06:33] LABS: PROTIME 14.3 Sec (11.9-14.9); PT RATIO 1.1
[2019-01-26 06:41] LABS: TROPONIN-I 0.165 ng/ml (0.000-0.120)
[2019-01-26] MEDS: HYDROCODONE/APAP (5/325) TAB PO ×3 (06:49→21:05)
[2019-01-26] MEDS: INSULIN ASPART [NOVOLOG] 3 ML PEN SC ×7 (08:00→22:38)
[2019-01-26] MEDS: DORZOLAMIDE/TIMOLOL/PF 0.2 ML DROPERETTE BOTH EYES ×2 (08:27→22:31)
[2019-01-26] MEDS: LACTOBACILLUS RHAMNOSUS CAP PO ×2 (08:28→22:33)
[2019-01-26] MEDS: SODIUM CHLORIDE 1 GM TAB PO (08:28)
[2019-01-26] MEDS: LEVETIRACETAM 500 MG TAB PO ×2 (08:28→22:31)
[2019-01-26] MEDS: ASPIRIN 81 MG TAB PO (08:28)
[2019-01-26] MEDS: RIFAMPIN 300 MG CAP PO (08:29)
[2019-01-26] MEDS: NIFEdipine (XL) 90 MG TAB PO ×2 (08:30→11:35)
[2019-01-26] MEDS: METOPROLOL (XL) 25 MG TAB PO ×2 (08:30→11:35)
[2019-01-26] MEDS: HEPARIN 5,000 UNIT/1 ML VIAL SC ×2 (08:39→22:41)
[2019-01-26] MEDS: HEPARIN 1000 UNITS/ML 10 ML INJ CATHETER (10:30)
[2019-01-26] MEDS: BRIMONIDINE 0.2% 5 ML BTL BOTH EYES ×3 (11:34→22:32)
[2019-01-26] MEDS: REGADENOSON 0.4 MG/5 ML SYG (13:02)
[2019-01-26] MEDS: ATORVASTATIN 80 MG TAB PO (22:32)
[2019-01-26] MEDS: ESCITALOPRAM 10 MG TAB PO (22:32)
[2019-01-26] MEDS: LATANOPROST 0.005% 2.5 ML OPH BOTH EYES (22:33)
[2019-01-26] MEDS: SENNA/DOCUSATE NA (8.6MG/50MG) TAB PO (22:33)
[2019-01-26] MEDS: INSULIN GLARGINE [LANTus] (100 UNITS/ML) SYG SC (22:39)
[2019-01-27] MEDS: ACCU-CHEK XX (02:00)
[2019-01-27] MEDS: HYDROCODONE/APAP (5/325) TAB PO ×3 (03:04→19:13)
[2019-01-27 06:30] LABS: ADD MAN DIFF? NO
[2019-01-27] MEDS: traMADol 50 MG TAB PO (06:31)
[2019-01-27 06:34] LABS: ABNORMAL IP MESSAGE 1; BASOPHIL # 0.1 10^3/ul (0.0-0.1); BASOPHILS % 0.4 % (0.0-2.0); EOSINOPHILS # 0.1 10^3/ul (0.0-0.5); EOSINOPHILS % 0.7 % (0.0-7.0); HEMATOCRIT 25.5 % (37.0-47.0); LYMPHOCYTES % 7.7 % (15.0-51.0); MEAN CORPUSCULAR HEMOGLOBIN 29.5 pg (29.0-33.0); MEAN CORPUSCULAR HGB CONC 31.4 g/dl (32.0-37.0); MEAN CORPUSCULAR VOLUME 94.1 fl (82.0-101.0); MEAN PLATELET VOLUME 8.9 fl (7.4-10.4); MONOCYTE # 1.6 10^3/ul (0.3-0.9); MONOCYTES % 11.7 % (0.0-11.0); NEUTROPHIL # 10.5 10^3/ul (1.6-7.5); NEUTROPHILS % 78.1 % (39.0-77.0); PLATELET COUNT 346 10^3/UL (140-415); RED BLOOD COUNT 2.71 10^6/ul (4.20-5.40); RED CELL DISTRIBUTION WIDTH 14.4 % (11.5-14.5)
[2019-01-27 06:34] LABS: WHITE BLOOD COUNT 13.4 10^3/ul (4.8-10.8)
[2019-01-27 06:44] LABS: POSITIVE DIFF @See below
[2019-01-27 06:53] LABS: INR 1.17; PT RATIO 1.2
[2019-01-27 06:59] LABS: ANION GAP 8 (5-13); BLOOD UREA NITROGEN 32 mg/dl (7-20); CALCIUM 7.5 mg/dl (8.4-10.2); CARBON DIOXIDE 26 mmol/L (21-31); CHLORIDE 102 mmol/L (97-110); CREATININE 4.65 mg/dl (0.44-1.00); Estimated GFR 10 mL/min (>60); GLUCOSE 113 mg/dl (70-220); MAGNESIUM 2.3 mg/dl (1.7-2.5); PHOSPHORUS 5.6 mg/dl (2.5-4.9); POTASSIUM 3.9 mmol/L (3.5-5.1); SODIUM 136 mmol/L (135-144)
[2019-01-27] MEDS: INSULIN ASPART [NOVOLOG] 3 ML PEN SC ×7 (08:00→21:00)
[2019-01-27] MEDS: RIFAMPIN 300 MG CAP PO (08:17)
[2019-01-27] MEDS: LACTOBACILLUS RHAMNOSUS CAP PO ×2 (08:17→22:51)
[2019-01-27] MEDS: DORZOLAMIDE/TIMOLOL/PF 0.2 ML DROPERETTE BOTH EYES ×2 (08:20→21:28)
[2019-01-27] MEDS: BRIMONIDINE 0.2% 5 ML BTL BOTH EYES ×3 (08:20→21:28)
[2019-01-27] MEDS: ASPIRIN (EC) 81 MG TAB PO (08:21)
[2019-01-27] MEDS: LEVETIRACETAM 500 MG TAB PO ×2 (08:22→22:51)
[2019-01-27] MEDS: METOPROLOL (XL) 25 MG TAB PO (08:22)
[2019-01-27] MEDS: NIFEdipine (XL) 90 MG TAB PO (08:22)
[2019-01-27] MEDS: HEPARIN 5,000 UNIT/1 ML VIAL SC ×2 (08:23→21:33)
[2019-01-27] MEDS ORDERED: EPHEDrine SULFATE 50 MG/5 ML SYG IV (12:30)
[2019-01-27] MEDS ORDERED: LABETALOL HCL 20MG INJ IV (12:30)
[2019-01-27] MEDS ORDERED: hydrALAzine 20 MG INJ IV (12:30)
[2019-01-27] MEDS ORDERED: FENTAnyl 50 MCG/ML VIAL IV (12:30)
[2019-01-27] MEDS: hydrALAzine 20 MG INJ IV (12:50)
[2019-01-27] MEDS: SENNA/DOCUSATE NA (8.6MG/50MG) TAB PO (21:00)
[2019-01-27] MEDS: LATANOPROST 0.005% 2.5 ML OPH BOTH EYES (21:28)
[2019-01-27] MEDS: INSULIN GLARGINE [LANTus] (100 UNITS/ML) SYG SC (21:50)
[2019-01-27] MEDS: HEPARIN 1000 UNITS/ML 10 ML INJ CATHETER (22:35)
[2019-01-27] MEDS: ESCITALOPRAM 10 MG TAB PO (22:51)
[2019-01-27] MEDS: ATORVASTATIN 80 MG TAB PO (22:51)
[2019-01-27] MEDS: ONDANSETRON 4 MG INJ IV (23:30)
[2019-01-27] MEDS: morphine 2 MG INJ IV (23:31)
[2019-01-28] MEDS: hydrALAzine 20 MG INJ IV (01:17)
[2019-01-28] MEDS: ACCU-CHEK XX (02:02)
[2019-01-28] MEDS: HYDROCODONE/APAP (5/325) TAB PO ×2 (02:59→09:25)
[2019-01-28] MEDS: AMLODIPINE 10 MG TAB PO (03:31)
[2019-01-28 05:14] LABS: ADD MAN DIFF? NO
[2019-01-28 05:25] LABS: BASOPHIL # 0.1 10^3/ul (0.0-0.1); BASOPHILS % 0.8 % (0.0-2.0); EOSINOPHILS # 0.1 10^3/ul (0.0-0.5); EOSINOPHILS % 0.8 % (0.0-7.0); HEMATOCRIT 27.2 % (37.0-47.0); HEMOGLOBIN 8.5 g/dl (12.0-16.0); LYMPHOCYTES # 0.8 10^3/ul (0.8-2.9); MEAN CORPUSCULAR HEMOGLOBIN 29.5 pg (29.0-33.0); MEAN CORPUSCULAR HGB CONC 31.3 g/dl (32.0-37.0); MEAN CORPUSCULAR VOLUME 94.4 fl (82.0-101.0); MEAN PLATELET VOLUME 8.7 fl (7.4-10.4); MONOCYTE # 1.4 10^3/ul (0.3-0.9); MONOCYTES % 11.7 % (0.0-11.0); NEUTROPHIL # 9.3 10^3/ul (1.6-7.5); NEUTROPHILS % 78.7 % (39.0-77.0); PLATELET COUNT 302 10^3/UL (140-415); RED BLOOD COUNT 2.88 10^6/ul (4.20-5.40); RED CELL DISTRIBUTION WIDTH 14.2 % (11.5-14.5)
[2019-01-28 05:25] LABS: WHITE BLOOD COUNT 11.9 10^3/ul (4.8-10.8)
[2019-01-28 05:47] LABS: CREATINE KINASE 24 IU/L (23-200)
[2019-01-28 05:47] LABS: ALANINE AMINOTRANSFERASE 8 IU/L (13-69); ALBUMIN 2.6 g/dl (3.3-4.9); ALBUMIN/GLOBULIN RATIO 0.63; ALKALINE PHOSPHATASE 388 IU/L (42-121); ANION GAP 6 (5-13); ASPARTATE AMINO TRANSFERASE 31 IU/L (15-46); BILIRUBIN,INDIRECT 0.1 mg/dl (0-1.1); BILIRUBIN,TOTAL 0.1 mg/dl (0.2-1.3); BLOOD UREA NITROGEN 18 mg/dl (7-20); CARBON DIOXIDE 30 mmol/L (21-31); CHLORIDE 101 mmol/L (97-110); CREATININE 2.91 mg/dl (0.44-1.00); Estimated GFR 17 mL/min (>60); GLUCOSE 120 mg/dl (70-220); POTASSIUM 4.2 mmol/L (3.5-5.1); SODIUM 137 mmol/L (135-144); TOTAL PROTEIN 6.7 g/dl (6.1-8.1)
[2019-01-28 06:16] LABS: PHOSPHORUS 4.6 mg/dl (2.5-4.9)
[2019-01-28] MEDS: INSULIN ASPART [NOVOLOG] 3 ML PEN SC ×7 (08:00→21:00)
[2019-01-28] MEDS: LACTOBACILLUS RHAMNOSUS CAP PO ×2 (09:25→21:02)
[2019-01-28] MEDS: BRIMONIDINE 0.2% 5 ML BTL BOTH EYES ×3 (09:25→20:59)
[2019-01-28] MEDS: DORZOLAMIDE/TIMOLOL/PF 0.2 ML DROPERETTE BOTH EYES ×2 (09:25→21:01)
[2019-01-28] MEDS: ASPIRIN (EC) 81 MG TAB PO (09:26)
[2019-01-28] MEDS: RIFAMPIN 300 MG CAP PO (09:26)
[2019-01-28] MEDS: LEVETIRACETAM 500 MG TAB PO ×2 (09:26→21:01)
[2019-01-28] MEDS: METOPROLOL (XL) 25 MG TAB PO (09:27)
[2019-01-28] MEDS: NIFEdipine (XL) 90 MG TAB PO (09:28)
[2019-01-28] MEDS: HEPARIN 5,000 UNIT/1 ML VIAL SC ×2 (09:29→21:21)
[2019-01-28] MEDS: HEPARIN 1000 UNITS/ML 10 ML INJ CATHETER (09:36)
[2019-01-28 20:44] LABS: VANCOMYCIN,TROUGH 15.8 ug/ml (10.0-20.0)
[2019-01-28] MEDS: VANCOMYCIN 1 GM 250 ML IVPB (20:59)
[2019-01-28] MEDS: ESCITALOPRAM 10 MG TAB PO (21:01)
[2019-01-28] MEDS: LATANOPROST 0.005% 2.5 ML OPH BOTH EYES (21:01)
[2019-01-28] MEDS: ATORVASTATIN 80 MG TAB PO (21:02)
[2019-01-28] MEDS: SENNA/DOCUSATE NA (8.6MG/50MG) TAB PO (21:03)
[2019-01-28] MEDS: morphine 2 MG INJ IV (21:03)
[2019-01-28] MEDS: INSULIN GLARGINE [LANTus] (100 UNITS/ML) SYG SC (21:21)
[2019-01-29] MEDS: HYDROCODONE/APAP (5/325) TAB PO ×4 (01:42→19:45)
[2019-01-29] MEDS: ACCU-CHEK XX (02:08)
[2019-01-29] MEDS: hydrALAzine 20 MG INJ IV (05:43)
[2019-01-29] MEDS: INSULIN ASPART [NOVOLOG] 3 ML PEN SC ×7 (07:45→21:00)
[2019-01-29] MEDS: BRIMONIDINE 0.2% 5 ML BTL BOTH EYES ×3 (08:55→22:13)
[2019-01-29] MEDS: DORZOLAMIDE/TIMOLOL/PF 0.2 ML DROPERETTE BOTH EYES ×2 (08:56→22:04)
[2019-01-29] MEDS: RIFAMPIN 300 MG CAP PO (08:56)
[2019-01-29] MEDS: LEVETIRACETAM 500 MG TAB PO ×2 (08:56→22:04)
[2019-01-29] MEDS: ASPIRIN (EC) 81 MG TAB PO (08:57)
[2019-01-29] MEDS: METOPROLOL (XL) 50 MG TAB PO (08:57)
[2019-01-29] MEDS: LACTOBACILLUS RHAMNOSUS CAP PO ×2 (08:57→22:05)
[2019-01-29] MEDS: NIFEdipine (XL) 90 MG TAB PO (08:57)
[2019-01-29] MEDS: HEPARIN 5,000 UNIT/1 ML VIAL SC ×2 (09:03→22:16)
[2019-01-29] MEDS: HEPARIN 1000 UNITS/ML 10 ML INJ CATHETER (19:35)
[2019-01-29] MEDS: LATANOPROST 0.005% 2.5 ML OPH BOTH EYES (22:04)
[2019-01-29] MEDS: ESCITALOPRAM 10 MG TAB PO (22:05)
[2019-01-29] MEDS: SENNA/DOCUSATE NA (8.6MG/50MG) TAB PO (22:05)
[2019-01-29] MEDS: ATORVASTATIN 80 MG TAB PO (22:05)
[2019-01-29] MEDS: INSULIN GLARGINE [LANTus] (100 UNITS/ML) SYG SC (22:16)
[2019-01-30] MEDS: hydrALAzine 20 MG INJ IV (00:26)
[2019-01-30] MEDS: ACCU-CHEK XX (02:21)
[2019-01-30] MEDS: HYDROCODONE/APAP (5/325) TAB PO ×2 (06:08→20:04)
[2019-01-30] MEDS: INSULIN ASPART [NOVOLOG] 3 ML PEN SC ×7 (08:00→22:20)
[2019-01-30] MEDS: NIFEdipine (XL) 90 MG TAB PO (08:41)
[2019-01-30] MEDS: ASPIRIN (EC) 81 MG TAB PO (08:41)
[2019-01-30] MEDS: LACTOBACILLUS RHAMNOSUS CAP PO ×2 (08:41→22:21)
[2019-01-30] MEDS: RIFAMPIN 300 MG CAP PO (08:42)
[2019-01-30] MEDS: LEVETIRACETAM 500 MG TAB PO ×2 (08:43→22:21)
[2019-01-30] MEDS: METOPROLOL (XL) 50 MG TAB PO (08:44)
[2019-01-30] MEDS: DORZOLAMIDE/TIMOLOL/PF 0.2 ML DROPERETTE BOTH EYES ×2 (08:47→22:22)
[2019-01-30] MEDS: BRIMONIDINE 0.2% 5 ML BTL BOTH EYES ×3 (08:47→22:22)
[2019-01-30] MEDS: HEPARIN 5,000 UNIT/1 ML VIAL SC ×2 (08:52→22:23)
[2019-01-30] MEDS: ESCITALOPRAM 10 MG TAB PO (22:22)
[2019-01-30] MEDS: SENNA/DOCUSATE NA (8.6MG/50MG) TAB PO (22:22)
[2019-01-30] MEDS: ATORVASTATIN 80 MG TAB PO (22:22)
[2019-01-30] MEDS: LATANOPROST 0.005% 2.5 ML OPH BOTH EYES (22:23)
[2019-01-30] MEDS: INSULIN GLARGINE [LANTus] (100 UNITS/ML) SYG SC (22:24)
[2019-01-30] MEDS: morphine 2 MG INJ IV (22:27)
[2019-01-31] MEDS: ACCU-CHEK XX (01:36)
[2019-01-31] MEDS: hydrALAzine 20 MG INJ IV ×4 (03:02→22:30)
[2019-01-31] MEDS: morphine 2 MG INJ IV (05:29)
[2019-01-31 06:29] LABS: ADD MAN DIFF? NO
[2019-01-31 06:36] LABS: WHITE BLOOD COUNT 10.4 10^3/ul (4.8-10.8)
[2019-01-31 06:36] LABS: BASOPHIL # 0.1 10^3/ul (0.0-0.1); BASOPHILS % 0.7 % (0.0-2.0); EOSINOPHILS # 0.1 10^3/ul (0.0-0.5); HEMATOCRIT 25.4 % (37.0-47.0); HEMOGLOBIN 7.9 g/dl (12.0-16.0); LYMPHOCYTES # 1.2 10^3/ul (0.8-2.9); MEAN CORPUSCULAR HEMOGLOBIN 29.6 pg (29.0-33.0); MEAN CORPUSCULAR HGB CONC 31.1 g/dl (32.0-37.0); MEAN CORPUSCULAR VOLUME 95.1 fl (82.0-101.0); MEAN PLATELET VOLUME 8.9 fl (7.4-10.4); MONOCYTE # 1.3 10^3/ul (0.3-0.9); MONOCYTES % 12.9 % (0.0-11.0); NEUTROPHIL # 7.7 10^3/ul (1.6-7.5); NEUTROPHILS % 73.7 % (39.0-77.0); PLATELET COUNT 190 10^3/UL (140-415); RED BLOOD COUNT 2.67 10^6/ul (4.20-5.40); RED CELL DISTRIBUTION WIDTH 14.4 % (11.5-14.5)
[2019-01-31] MEDS: LABETALOL 100 MG TAB PO (06:36)
[2019-01-31] MEDS: HYDROmorphONE 1 MG/ML SYG IV (06:56)
[2019-01-31 07:16] LABS: ANION GAP 8 (5-13); BLOOD UREA NITROGEN 27 mg/dl (7-20); CALCIUM 7.9 mg/dl (8.4-10.2); CARBON DIOXIDE 31 mmol/L (21-31); CHLORIDE 95 mmol/L (97-110); CREATININE 4.31 mg/dl (0.44-1.00); Estimated GFR 11 mL/min (>60); GLUCOSE 74 mg/dl (70-220); POTASSIUM 4.4 mmol/L (3.5-5.1); SODIUM 134 mmol/L (135-144)
[2019-01-31] MEDS: INSULIN ASPART [NOVOLOG] 3 ML PEN SC ×7 (07:35→20:56)
[2019-01-31] MEDS: ONDANSETRON 4 MG INJ IV (08:16)
[2019-01-31] MEDS: METOPROLOL (XL) 50 MG TAB PO (08:20)
[2019-01-31] MEDS: NIFEdipine (XL) 90 MG TAB PO (08:20)
[2019-01-31] MEDS: ASPIRIN (EC) 81 MG TAB PO (08:21)
[2019-01-31] MEDS: LACTOBACILLUS RHAMNOSUS CAP PO ×2 (08:21→20:56)
[2019-01-31] MEDS: BRIMONIDINE 0.2% 5 ML BTL BOTH EYES ×3 (08:21→20:54)
[2019-01-31] MEDS: DORZOLAMIDE/TIMOLOL/PF 0.2 ML DROPERETTE BOTH EYES ×2 (08:21→20:54)
[2019-01-31] MEDS: LEVETIRACETAM 500 MG TAB PO ×2 (08:21→20:56)
[2019-01-31] MEDS: RIFAMPIN 300 MG CAP PO (09:43)
[2019-01-31] MEDS: HEPARIN 1000 UNITS/ML 10 ML INJ CATHETER (10:46)
[2019-01-31] MEDS: INSULIN GLARGINE [LANTus] (100 UNITS/ML) SYG SC (20:53)
[2019-01-31] MEDS: LATANOPROST 0.005% 2.5 ML OPH BOTH EYES (20:54)
[2019-01-31] MEDS: ESCITALOPRAM 10 MG TAB PO (20:56)
[2019-01-31] MEDS: ATORVASTATIN 80 MG TAB PO (20:56)
[2019-01-31] MEDS: SENNA/DOCUSATE NA (8.6MG/50MG) TAB PO (20:56)
[2019-01-31] MEDS: HYDROCODONE/APAP (5/325) TAB PO (21:06)
[2019-02-01] MEDS: INSULIN ASPART [NOVOLOG] 3 ML PEN SC ×9 (01:00→20:53)
[2019-02-01] MEDS: DEXTROSE 5%-0.45% NACL 1,000 ML IV (01:42)
[2019-02-01] MEDS: hydrALAzine 20 MG INJ IV ×7 (02:58→19:31)
[2019-02-01 06:23] LABS: ADD MAN DIFF? NO
[2019-02-01 06:26] LABS: WHITE BLOOD COUNT 9.7 10^3/ul (4.8-10.8)
[2019-02-01 06:26] LABS: BASOPHIL # 0.1 10^3/ul (0.0-0.1); BASOPHILS % 0.8 % (0.0-2.0); EOSINOPHILS # 0.1 10^3/ul (0.0-0.5); EOSINOPHILS % 0.9 % (0.0-7.0); HEMATOCRIT 25.2 % (37.0-47.0); HEMOGLOBIN 7.6 g/dl (12.0-16.0); LYMPHOCYTES % 9.9 % (15.0-51.0); MEAN CORPUSCULAR HEMOGLOBIN 29.3 pg (29.0-33.0); MEAN CORPUSCULAR HGB CONC 30.2 g/dl (32.0-37.0); MEAN CORPUSCULAR VOLUME 97.3 fl (82.0-101.0); MEAN PLATELET VOLUME 8.7 fl (7.4-10.4); MONOCYTE # 1.1 10^3/ul (0.3-0.9); MONOCYTES % 11.6 % (0.0-11.0); NEUTROPHIL # 7.3 10^3/ul (1.6-7.5); NEUTROPHILS % 75.9 % (39.0-77.0); PLATELET COUNT 148 10^3/UL (140-415); RED BLOOD COUNT 2.59 10^6/ul (4.20-5.40); RED CELL DISTRIBUTION WIDTH 14.5 % (11.5-14.5)
[2019-02-01 06:48] LABS: ANION GAP 6 (5-13); BLOOD UREA NITROGEN 16 mg/dl (7-20); CALCIUM 8.1 mg/dl (8.4-10.2); CARBON DIOXIDE 30 mmol/L (21-31); CHLORIDE 99 mmol/L (97-110); CREATININE 3.29 mg/dl (0.44-1.00); Estimated GFR 15 mL/min (>60); GLUCOSE 104 mg/dl (70-220); POTASSIUM 4.1 mmol/L (3.5-5.1); SODIUM 135 mmol/L (135-144)
[2019-02-01 06:56] LABS: MAGNESIUM 1.9 mg/dl (1.7-2.5)
[2019-02-01 06:56] LABS: PHOSPHORUS 3.4 mg/dl (2.5-4.9)
[2019-02-01] MEDS: NIFEdipine (XL) 90 MG TAB PO (09:00)
[2019-02-01] MEDS: LACTOBACILLUS RHAMNOSUS CAP PO ×2 (09:00→20:55)
[2019-02-01] MEDS: LEVETIRACETAM 500 MG TAB PO ×2 (09:00→20:55)
[2019-02-01] MEDS: METOPROLOL (XL) 50 MG TAB PO (09:00)
[2019-02-01] MEDS: ASPIRIN (EC) 81 MG TAB PO (09:00)
[2019-02-01] MEDS: RIFAMPIN 300 MG CAP PO (09:00)
[2019-02-01] MEDS: LISINOPRIL 20 MG TAB PO (09:26)
[2019-02-01] MEDS: morphine 2 MG INJ IV ×2 (09:27→21:12)
[2019-02-01] MEDS: LORAZEPAM 2 MG INJ IM (10:11)
[2019-02-01] MEDS: DORZOLAMIDE/TIMOLOL/PF 0.2 ML DROPERETTE BOTH EYES ×2 (10:14→21:04)
[2019-02-01] MEDS: BRIMONIDINE 0.2% 5 ML BTL BOTH EYES ×3 (10:14→21:04)
[2019-02-01] MEDS: METOPROLOL (XL) 25 MG TAB PO (11:35)
[2019-02-01] MEDS: HEPARIN 1000 UNITS/ML 10 ML INJ (12:13)
[2019-02-01] MEDS: LIDOCAINE 1% (MDV) 20 ML INJ (12:13)
[2019-02-01] MEDS: PROPOFOL 20 ML (12:50)
[2019-02-01] MEDS: LIDOCAINE 2% (SDV) 5 ML INJ (12:50)
[2019-02-01] MEDS: PROPOFOL 0 ML (12:50)
[2019-02-01] MEDS: FENTAnyl 50 MCG/ML VIAL (12:50)
[2019-02-01] MEDS: MIDAZOLAM 1 MG/ML 2 ML INJ (12:50)
[2019-02-01] MEDS: hydrALAzine 20 MG INJ (12:54)
[2019-02-01] MEDS ORDERED: ONDANSETRON 4 MG INJ IV (13:00)
[2019-02-01] MEDS ORDERED: FENTAnyl 50 MCG/ML VIAL IV (13:00)
[2019-02-01] MEDS ORDERED: HYDROmorphONE 1 MG/5 ML IV SYRINGE IV (13:00)
[2019-02-01] MEDS ORDERED: LABETALOL HCL 20MG INJ (13:51)
[2019-02-01] MEDS: LABETALOL HCL 20MG INJ IV ×3 (13:55→14:15)
[2019-02-01] MEDS ORDERED: hydrALAzine 20 MG INJ IV (14:00)
[2019-02-01] MEDS: HYDROmorphONE 1 MG/5 ML IV SYRINGE IV (14:43)
[2019-02-01] MEDS: ONDANSETRON 4 MG INJ IV (18:03)
[2019-02-01] MEDS: INSULIN GLARGINE [LANTus] (100 UNITS/ML) SYG SC (20:53)
[2019-02-01] MEDS: ESCITALOPRAM 10 MG TAB PO (20:55)
[2019-02-01] MEDS: ATORVASTATIN 80 MG TAB PO (20:55)
[2019-02-01] MEDS: VANCOMYCIN 1 GM 250 ML IVPB (20:55)
[2019-02-01] MEDS: SENNA/DOCUSATE NA (8.6MG/50MG) TAB PO (20:55)
[2019-02-01] MEDS: LATANOPROST 0.005% 2.5 ML OPH BOTH EYES (22:38)
[2019-02-02] MEDS: morphine 2 MG INJ IV ×2 (01:19→05:14)
[2019-02-02] MEDS: DEXTROSE 5%-0.45% NACL 1,000 ML IV (04:57)
[2019-02-02 05:45] LABS: ADD MAN DIFF? NO
[2019-02-02 05:51] LABS: BASOPHIL # 0.1 10^3/ul (0.0-0.1); BASOPHILS % 0.7 % (0.0-2.0); EOSINOPHILS # 0.2 10^3/ul (0.0-0.5); EOSINOPHILS % 1.6 % (0.0-7.0); HEMATOCRIT 23.8 % (37.0-47.0); HEMOGLOBIN 7.1 g/dl (12.0-16.0); MEAN CORPUSCULAR HEMOGLOBIN 28.7 pg (29.0-33.0); MEAN CORPUSCULAR HGB CONC 29.8 g/dl (32.0-37.0); MEAN CORPUSCULAR VOLUME 96.4 fl (82.0-101.0); MEAN PLATELET VOLUME 9.3 fl (7.4-10.4); MONOCYTE # 1.2 10^3/ul (0.3-0.9); MONOCYTES % 10.4 % (0.0-11.0); NEUTROPHIL # 8.8 10^3/ul (1.6-7.5); NEUTROPHILS % 77.5 % (39.0-77.0); PLATELET COUNT 132 10^3/UL (140-415); RED BLOOD COUNT 2.47 10^6/ul (4.20-5.40); RED CELL DISTRIBUTION WIDTH 14.7 % (11.5-14.5)
[2019-02-02 05:51] LABS: WHITE BLOOD COUNT 11.4 10^3/ul (4.8-10.8)
[2019-02-02 06:26] LABS: PHOSPHORUS 4.4 mg/dl (2.5-4.9)
[2019-02-02 06:34] LABS: ANION GAP 8 (5-13); BLOOD UREA NITROGEN 24 mg/dl (7-20); CALCIUM 7.9 mg/dl (8.4-10.2); CARBON DIOXIDE 28 mmol/L (21-31); CHLORIDE 98 mmol/L (97-110); CREATININE 4.66 mg/dl (0.44-1.00); Estimated GFR 10 mL/min (>60); GLUCOSE 85 mg/dl (70-220); POTASSIUM 4.7 mmol/L (3.5-5.1); SODIUM 134 mmol/L (135-144)
[2019-02-02] MEDS: INSULIN ASPART [NOVOLOG] 3 ML PEN SC ×7 (07:35→20:32)
[2019-02-02] MEDS: LEVETIRACETAM 500 MG TAB PO ×2 (08:18→20:10)
[2019-02-02] MEDS: ASPIRIN (EC) 81 MG TAB PO (08:18)
[2019-02-02] MEDS: LACTOBACILLUS RHAMNOSUS CAP PO ×2 (08:18→20:12)
[2019-02-02] MEDS: BRIMONIDINE 0.2% 5 ML BTL BOTH EYES ×3 (08:18→20:13)
[2019-02-02] MEDS: DORZOLAMIDE/TIMOLOL/PF 0.2 ML DROPERETTE BOTH EYES ×2 (08:18→20:13)
[2019-02-02] MEDS: RIFAMPIN 300 MG CAP PO (08:18)
[2019-02-02] MEDS: LISINOPRIL 20 MG TAB PO (08:19)
[2019-02-02] MEDS: METOPROLOL (XL) 100 MG TAB PO (08:19)
[2019-02-02] MEDS: NIFEdipine (XL) 90 MG TAB PO (08:20)
[2019-02-02] MEDS: NIFEdipine (XL) 30 MG TAB PO (09:00)
[2019-02-02] MEDS: HEPARIN 1000 UNITS/ML 10 ML INJ CATHETER (16:34)
[2019-02-02] MEDS: ESCITALOPRAM 10 MG TAB PO (20:10)
[2019-02-02] MEDS: ATORVASTATIN 80 MG TAB PO (20:11)
[2019-02-02] MEDS: SENNA/DOCUSATE NA (8.6MG/50MG) TAB PO (20:11)
[2019-02-02] MEDS: LATANOPROST 0.005% 2.5 ML OPH BOTH EYES (20:13)
[2019-02-02] MEDS: INSULIN GLARGINE [LANTus] (100 UNITS/ML) SYG SC (20:24)
[2019-02-02] MEDS: HYDROCODONE/APAP (5/325) TAB PO (20:32)
[2019-02-03] MEDS: HYDROCODONE/APAP (5/325) TAB PO ×3 (04:17→17:18)
[2019-02-03 05:39] LABS: ADD MAN DIFF? NO
[2019-02-03 05:50] LABS: WHITE BLOOD COUNT 7.8 10^3/ul (4.8-10.8)
[2019-02-03 05:50] LABS: BASOPHIL # 0.1 10^3/ul (0.0-0.1); BASOPHILS % 0.9 % (0.0-2.0); EOSINOPHILS # 0.2 10^3/ul (0.0-0.5); EOSINOPHILS % 2.2 % (0.0-7.0); HEMATOCRIT 23.5 % (37.0-47.0); HEMOGLOBIN 7.2 g/dl (12.0-16.0); LYMPHOCYTES # 1.2 10^3/ul (0.8-2.9); LYMPHOCYTES % 14.8 % (15.0-51.0); MEAN CORPUSCULAR HEMOGLOBIN 29.6 pg (29.0-33.0); MEAN CORPUSCULAR HGB CONC 30.6 g/dl (32.0-37.0); MEAN CORPUSCULAR VOLUME 96.7 fl (82.0-101.0); MEAN PLATELET VOLUME 9.1 fl (7.4-10.4); MONOCYTES % 12.5 % (0.0-11.0); NEUTROPHIL # 5.3 10^3/ul (1.6-7.5); NEUTROPHILS % 68.4 % (39.0-77.0); PLATELET COUNT 129 10^3/UL (140-415); RED BLOOD COUNT 2.43 10^6/ul (4.20-5.40); RED CELL DISTRIBUTION WIDTH 14.6 % (11.5-14.5)
[2019-02-03 06:34] LABS: MAGNESIUM 1.9 mg/dl (1.7-2.5)
[2019-02-03 06:37] LABS: ANION GAP 4 (5-13); BLOOD UREA NITROGEN 14 mg/dl (7-20); CALCIUM 7.8 mg/dl (8.4-10.2); CARBON DIOXIDE 31 mmol/L (21-31); CHLORIDE 101 mmol/L (97-110); CREATININE 3.05 mg/dl (0.44-1.00); Estimated GFR 16 mL/min (>60); GLUCOSE 86 mg/dl (70-220); POTASSIUM 4.2 mmol/L (3.5-5.1); SODIUM 136 mmol/L (135-144)
[2019-02-03] MEDS: INSULIN ASPART [NOVOLOG] 3 ML PEN SC ×6 (07:35→20:35)
[2019-02-03] MEDS: DEXTROSE 5%-0.45% NACL 1,000 ML IV (07:56)
[2019-02-03] MEDS: LEVETIRACETAM 500 MG TAB PO ×2 (09:00→20:39)
[2019-02-03] MEDS: BRIMONIDINE 0.2% 5 ML BTL BOTH EYES ×3 (09:00→20:37)
[2019-02-03] MEDS: DORZOLAMIDE/TIMOLOL/PF 0.2 ML DROPERETTE BOTH EYES ×2 (09:00→20:36)
[2019-02-03] MEDS: RIFAMPIN 300 MG CAP PO (09:00)
[2019-02-03] MEDS: NIFEdipine (XL) 30 MG TAB PO (09:01)
[2019-02-03] MEDS: LACTOBACILLUS RHAMNOSUS CAP PO ×2 (09:02→20:39)
[2019-02-03] MEDS: NIFEdipine (XL) 90 MG TAB PO (09:02)
[2019-02-03] MEDS: ASPIRIN (EC) 81 MG TAB PO (09:02)
[2019-02-03] MEDS: METOPROLOL (XL) 100 MG TAB PO (09:03)
[2019-02-03] MEDS: LISINOPRIL 20 MG TAB PO (09:08)
[2019-02-03 12:08] LABS: IRON 30 ug/dl (35-150)
[2019-02-03 12:17] LABS: % IRON SATURATION 19 % SAT (22-52); TOTAL IRON BINDING CAPACITY 158 ug/dl (241-421)
[2019-02-03] MEDS: ONDANSETRON 4 MG INJ IV (17:01)
[2019-02-03] MEDS: hydrALAzine 20 MG INJ IV (17:18)
[2019-02-03] MEDS: LATANOPROST 0.005% 2.5 ML OPH BOTH EYES (20:38)
[2019-02-03] MEDS: ESCITALOPRAM 10 MG TAB PO (20:39)
[2019-02-03] MEDS: SENNA/DOCUSATE NA (8.6MG/50MG) TAB PO (20:39)
[2019-02-03] MEDS: ATORVASTATIN 80 MG TAB PO (20:41)
[2019-02-04] MEDS: HYDROCODONE/APAP (5/325) TAB PO ×2 (04:45→20:14)
[2019-02-04 05:09] LABS: ADD MAN DIFF? NO
[2019-02-04 05:14] LABS: BASOPHIL # 0.1 10^3/ul (0.0-0.1); BASOPHILS % 0.8 % (0.0-2.0); EOSINOPHILS # 0.2 10^3/ul (0.0-0.5); HEMATOCRIT 25.7 % (37.0-47.0); HEMOGLOBIN 7.9 g/dl (12.0-16.0); LYMPHOCYTES % 11.1 % (15.0-51.0); MEAN CORPUSCULAR HEMOGLOBIN 29.4 pg (29.0-33.0); MEAN CORPUSCULAR HGB CONC 30.7 g/dl (32.0-37.0); MEAN CORPUSCULAR VOLUME 95.5 fl (82.0-101.0); MEAN PLATELET VOLUME 9.4 fl (7.4-10.4); MONOCYTE # 0.8 10^3/ul (0.3-0.9); MONOCYTES % 8.8 % (0.0-11.0); NEUTROPHIL # 6.9 10^3/ul (1.6-7.5); NEUTROPHILS % 76.1 % (39.0-77.0); PLATELET COUNT 135 10^3/UL (140-415); RED BLOOD COUNT 2.69 10^6/ul (4.20-5.40); RED CELL DISTRIBUTION WIDTH 14.6 % (11.5-14.5)
[2019-02-04 05:37] LABS: PHOSPHORUS 4.2 mg/dl (2.5-4.9)
[2019-02-04 05:37] LABS: MAGNESIUM 1.9 mg/dl (1.7-2.5)
[2019-02-04 05:39] LABS: ANION GAP 7 (5-13); BLOOD UREA NITROGEN 23 mg/dl (7-20); CALCIUM 7.9 mg/dl (8.4-10.2); CARBON DIOXIDE 29 mmol/L (21-31); CHLORIDE 97 mmol/L (97-110); CREATININE 4.53 mg/dl (0.44-1.00); Estimated GFR 10 mL/min (>60); GLUCOSE 98 mg/dl (70-220); POTASSIUM 4.7 mmol/L (3.5-5.1); SODIUM 133 mmol/L (135-144)
[2019-02-04] MEDS: INSULIN ASPART [NOVOLOG] 3 ML PEN SC ×4 (08:00→20:23)
[2019-02-04] MEDS: ONDANSETRON 4 MG INJ IV (08:18)
[2019-02-04] MEDS: LISINOPRIL 20 MG TAB PO (08:19)
[2019-02-04] MEDS: NIFEdipine (XL) 90 MG TAB PO (08:23)
[2019-02-04] MEDS: NIFEdipine (XL) 30 MG TAB PO (08:23)
[2019-02-04] MEDS: METOPROLOL (XL) 100 MG TAB PO (08:23)
[2019-02-04] MEDS: LACTOBACILLUS RHAMNOSUS CAP PO ×2 (09:32→20:13)
[2019-02-04] MEDS: DORZOLAMIDE/TIMOLOL/PF 0.2 ML DROPERETTE BOTH EYES ×2 (09:32→20:13)
[2019-02-04] MEDS: LEVETIRACETAM 500 MG TAB PO ×2 (09:32→20:13)
[2019-02-04] MEDS: BRIMONIDINE 0.2% 5 ML BTL BOTH EYES ×3 (09:32→20:12)
[2019-02-04] MEDS: ASPIRIN (EC) 81 MG TAB PO (09:33)
[2019-02-04] MEDS: RIFAMPIN 300 MG CAP PO (09:33)
[2019-02-04] MEDS: DIPHENHYDRAMINE 50 MG INJ IV (13:01)
[2019-02-04] MEDS: HEPARIN 1000 UNITS/ML 10 ML INJ CATHETER (16:29)
[2019-02-04] MEDS: hydrALAzine 20 MG INJ IV (17:08)
[2019-02-04] MEDS: LATANOPROST 0.005% 2.5 ML OPH BOTH EYES (20:13)
[2019-02-04] MEDS: ESCITALOPRAM 10 MG TAB PO (20:13)
[2019-02-04] MEDS: SENNA/DOCUSATE NA (8.6MG/50MG) TAB PO (20:13)
[2019-02-04] MEDS: ATORVASTATIN 80 MG TAB PO (20:13)
[2019-02-05] MEDS: hydrALAzine 20 MG INJ IV (02:47)
[2019-02-05 05:14] LABS: ADD MAN DIFF? NO
[2019-02-05 05:24] LABS: BASOPHIL # 0.1 10^3/ul (0.0-0.1); BASOPHILS % 0.7 % (0.0-2.0); EOSINOPHILS # 0.1 10^3/ul (0.0-0.5); EOSINOPHILS % 1.8 % (0.0-7.0); HEMATOCRIT 23.5 % (37.0-47.0); HEMOGLOBIN 7.3 g/dl (12.0-16.0); LYMPHOCYTES # 1.2 10^3/ul (0.8-2.9); LYMPHOCYTES % 15.5 % (15.0-51.0); MEAN CORPUSCULAR HEMOGLOBIN 29.9 pg (29.0-33.0); MEAN CORPUSCULAR HGB CONC 31.1 g/dl (32.0-37.0); MEAN CORPUSCULAR VOLUME 96.3 fl (82.0-101.0); MONOCYTE # 0.9 10^3/ul (0.3-0.9); MONOCYTES % 11.9 % (0.0-11.0); NEUTROPHIL # 5.3 10^3/ul (1.6-7.5); NEUTROPHILS % 68.9 % (39.0-77.0); PLATELET COUNT 153 10^3/UL (140-415); RED BLOOD COUNT 2.44 10^6/ul (4.20-5.40); RED CELL DISTRIBUTION WIDTH 14.7 % (11.5-14.5)
[2019-02-05 05:24] LABS: WHITE BLOOD COUNT 7.6 10^3/ul (4.8-10.8)
[2019-02-05 06:02] LABS: MAGNESIUM 1.9 mg/dl (1.7-2.5)
[2019-02-05 06:11] LABS: ANION GAP 4 (5-13); BLOOD UREA NITROGEN 13 mg/dl (7-20); CALCIUM 7.9 mg/dl (8.4-10.2); CARBON DIOXIDE 30 mmol/L (21-31); CHLORIDE 103 mmol/L (97-110); CREATININE 3.08 mg/dl (0.44-1.00); Estimated GFR 16 mL/min (>60); GLUCOSE 114 mg/dl (70-220); SODIUM 137 mmol/L (135-144)
[2019-02-05 06:27] LABS: POTASSIUM 4.4 mmol/L (3.5-5.1)
[2019-02-05] MEDS: INSULIN ASPART [NOVOLOG] 3 ML PEN SC ×4 (08:00→20:38)
[2019-02-05] MEDS: LISINOPRIL 20 MG TAB PO (08:10)
[2019-02-05] MEDS: NIFEdipine (XL) 90 MG TAB PO (08:10)
[2019-02-05] MEDS: METOPROLOL (XL) 100 MG TAB PO (08:11)
[2019-02-05] MEDS: HYDROCODONE/APAP (5/325) TAB PO ×2 (08:11→18:43)
[2019-02-05] MEDS: NIFEdipine (XL) 30 MG TAB PO (08:11)
[2019-02-05] MEDS: RIFAMPIN 300 MG CAP PO (08:12)
[2019-02-05] MEDS: ASPIRIN (EC) 81 MG TAB PO (08:12)
[2019-02-05] MEDS: LEVETIRACETAM 500 MG TAB PO ×2 (08:12→20:28)
[2019-02-05] MEDS: LACTOBACILLUS RHAMNOSUS CAP PO ×2 (08:12→20:27)
[2019-02-05] MEDS: DORZOLAMIDE/TIMOLOL/PF 0.2 ML DROPERETTE BOTH EYES ×2 (08:12→20:27)
[2019-02-05] MEDS: BRIMONIDINE 0.2% 5 ML BTL BOTH EYES ×3 (08:13→20:27)
[2019-02-05] MEDS: SOD FERRIC GLUC COMPLX 125 MG in SOD CHLORIDE 0.9% 100 ML IVPB (12:12)
[2019-02-05] MEDS ORDERED: SOD CHLORIDE 0.9% 1,000 ML IV (12:58)
[2019-02-05] MEDS ORDERED: ALBUMIN HUMAN 25% 100 ML IV (13:00)
[2019-02-05] MEDS ORDERED: SODIUM CHLORIDE 0.9% 1L BAG IV (13:00)
[2019-02-05] MEDS: SENNA/DOCUSATE NA (8.6MG/50MG) TAB PO (20:27)
[2019-02-05] MEDS: LATANOPROST 0.005% 2.5 ML OPH BOTH EYES (20:28)
[2019-02-05] MEDS: ATORVASTATIN 80 MG TAB PO (20:28)
[2019-02-05] MEDS: ESCITALOPRAM 10 MG TAB PO (20:28)
[2019-02-05] MEDS: VANCOMYCIN 1 GM 250 ML IVPB (21:26)
[2019-02-06] MEDS: HYDROCODONE/APAP (5/325) TAB PO ×3 (00:56→17:13)
[2019-02-06] MEDS: ONDANSETRON 4 MG INJ IV ×2 (00:56→09:20)
[2019-02-06] MEDS: morphine 2 MG INJ IV ×2 (02:12→22:02)
[2019-02-06] MEDS: hydrALAzine 20 MG INJ IV (02:21)
[2019-02-06 06:33] LABS: ADD MAN DIFF? NO
[2019-02-06 06:40] LABS: WHITE BLOOD COUNT 8.3 10^3/ul (4.8-10.8)
[2019-02-06 06:40] LABS: BASOPHIL # 0.1 10^3/ul (0.0-0.1); BASOPHILS % 0.7 % (0.0-2.0); EOSINOPHILS # 0.2 10^3/ul (0.0-0.5); EOSINOPHILS % 1.9 % (0.0-7.0); HEMATOCRIT 24.6 % (37.0-47.0); HEMOGLOBIN 7.5 g/dl (12.0-16.0); LYMPHOCYTES # 1.4 10^3/ul (0.8-2.9); LYMPHOCYTES % 16.8 % (15.0-51.0); MEAN CORPUSCULAR HEMOGLOBIN 29.6 pg (29.0-33.0); MEAN CORPUSCULAR HGB CONC 30.5 g/dl (32.0-37.0); MEAN CORPUSCULAR VOLUME 97.2 fl (82.0-101.0); MEAN PLATELET VOLUME 9.9 fl (7.4-10.4); MONOCYTE # 0.8 10^3/ul (0.3-0.9); NEUTROPHIL # 5.8 10^3/ul (1.6-7.5); NEUTROPHILS % 70.3 % (39.0-77.0); PLATELET COUNT 147 10^3/UL (140-415); RED BLOOD COUNT 2.53 10^6/ul (4.20-5.40); RED CELL DISTRIBUTION WIDTH 15.1 % (11.5-14.5)
[2019-02-06 06:47] LABS: POSITIVE DIFF @See below
[2019-02-06 07:03] LABS: MAGNESIUM 1.9 mg/dl (1.7-2.5)
[2019-02-06 07:03] LABS: PHOSPHORUS 3.7 mg/dl (2.5-4.9)
[2019-02-06 07:15] LABS: ANION GAP 8 (5-13); BLOOD UREA NITROGEN 21 mg/dl (7-20); CALCIUM 7.7 mg/dl (8.4-10.2); CARBON DIOXIDE 24 mmol/L (21-31); CHLORIDE 103 mmol/L (97-110); CREATININE 4.29 mg/dl (0.44-1.00); Estimated GFR 11 mL/min (>60); GLUCOSE 107 mg/dl (70-220); POTASSIUM 4.6 mmol/L (3.5-5.1); SODIUM 135 mmol/L (135-144)
[2019-02-06] MEDS: INSULIN ASPART [NOVOLOG] 3 ML PEN SC ×4 (07:54→20:51)
[2019-02-06] MEDS: DORZOLAMIDE/TIMOLOL/PF 0.2 ML DROPERETTE BOTH EYES ×2 (09:10→20:32)
[2019-02-06] MEDS: LACTOBACILLUS RHAMNOSUS CAP PO ×2 (09:10→20:35)
[2019-02-06] MEDS: ASPIRIN (EC) 81 MG TAB PO (09:10)
[2019-02-06] MEDS: BRIMONIDINE 0.2% 5 ML BTL BOTH EYES ×3 (09:10→20:36)
[2019-02-06] MEDS: LEVETIRACETAM 500 MG TAB PO ×2 (09:11→20:35)
[2019-02-06] MEDS: RIFAMPIN 300 MG CAP PO (09:11)
[2019-02-06] MEDS: METOPROLOL (XL) 100 MG TAB PO (11:10)
[2019-02-06] MEDS: LISINOPRIL 20 MG TAB PO (11:10)
[2019-02-06] MEDS: NIFEdipine (XL) 60 MG TAB PO ×2 (11:10→20:36)
[2019-02-06] MEDS: SOD FERRIC GLUC COMPLX 125 MG in SOD CHLORIDE 0.9% 100 ML IVPB (12:35)
[2019-02-06] MEDS ORDERED: hydrALAzine 20 MG INJ IV (15:00)
[2019-02-06] MEDS: HEPARIN 1000 UNITS/ML 10 ML INJ CATHETER (16:59)
[2019-02-06] MEDS: CLONIDINE 0.2 MG/24 HR PATCH TRANSDERM (17:10)
[2019-02-06] MEDS: EPOETIN ALFA-EPBX (ESRD) 10,000 UNIT/ML VIAL SC (17:12)
[2019-02-06] MEDS: SENNA/DOCUSATE NA (8.6MG/50MG) TAB PO (20:34)
[2019-02-06] MEDS: ATORVASTATIN 80 MG TAB PO (20:34)
[2019-02-06] MEDS: MINOXIDIL 2.5 MG TAB PO (20:38)
[2019-02-06] MEDS: LATANOPROST 0.005% 2.5 ML OPH BOTH EYES (20:38)
[2019-02-06] MEDS: ESCITALOPRAM 10 MG TAB PO (20:38)
[2019-02-06] MEDS: CLONIDINE 0.3 MG/24 HR PATCH TRANSDERM (21:54)
[2019-02-07 06:08] LABS: ADD MAN DIFF? NO
[2019-02-07 06:17] LABS: ABNORMAL IP MESSAGE 1; BASOPHIL # 0.1 10^3/ul (0.0-0.1); EOSINOPHILS # 0.2 10^3/ul (0.0-0.5); EOSINOPHILS % 2.3 % (0.0-7.0); HEMATOCRIT 22.8 % (37.0-47.0); LYMPHOCYTES # 1.5 10^3/ul (0.8-2.9); LYMPHOCYTES % 18.5 % (15.0-51.0); MEAN CORPUSCULAR HEMOGLOBIN 28.9 pg (29.0-33.0); MEAN CORPUSCULAR HGB CONC 30.3 g/dl (32.0-37.0); MEAN CORPUSCULAR VOLUME 95.4 fl (82.0-101.0); MEAN PLATELET VOLUME 9.5 fl (7.4-10.4); MONOCYTES % 11.7 % (0.0-11.0); NEUTROPHIL # 5.3 10^3/ul (1.6-7.5); NEUTROPHILS % 65.3 % (39.0-77.0); PLATELET COUNT 175 10^3/UL (140-415); RED BLOOD COUNT 2.39 10^6/ul (4.20-5.40); RED CELL DISTRIBUTION WIDTH 15.3 % (11.5-14.5)
[2019-02-07 06:17] LABS: WHITE BLOOD COUNT 8.1 10^3/ul (4.8-10.8)
[2019-02-07 06:26] LABS: HEMOGLOBIN 6.9 g/dl (12.0-16.0); POSITIVE DIFF @See below
[2019-02-07 06:40] LABS: ANION GAP 3 (5-13); BLOOD UREA NITROGEN 12 mg/dl (7-20); CALCIUM 7.7 mg/dl (8.4-10.2); CARBON DIOXIDE 28 mmol/L (21-31); CHLORIDE 103 mmol/L (97-110); Estimated GFR 19 mL/min (>60); GLUCOSE 120 mg/dl (70-220); POTASSIUM 4.5 mmol/L (3.5-5.1); SODIUM 134 mmol/L (135-144)
[2019-02-07] MEDS: INSULIN ASPART [NOVOLOG] 3 ML PEN SC ×4 (08:00→20:53)
[2019-02-07 09:56] LABS: ANISOCYTOSIS 1+ (0-0); BAND NEUTROPHILS % (M) 1 % (0-4); EOSINOPHILS % (M) 4 % (0-7); GIANT THROMBO% (M) 1 % (0-0); LYMPHOCYTES % (M) 13 % (15-51); MONOCYTE #M 0.5 10^3/ul (0.3-0.9); MONOCYTES % (M) 7 % (0-11); PLATELET ESTIMATE NORMAL; POLYCHROMASIA 2+ (0-0); SEG NEUT #M 6.1 10^3/ul (1.6-7.5); SEGMENTED NEUTROPHILS (M) % 75 % (39-77); SMUDGE%M 12 % (0-0)
[2019-02-07] MEDS: DORZOLAMIDE/TIMOLOL/PF 0.2 ML DROPERETTE BOTH EYES ×2 (10:16→20:50)
[2019-02-07] MEDS: BRIMONIDINE 0.2% 5 ML BTL BOTH EYES ×3 (10:16→20:50)
[2019-02-07] MEDS: ASPIRIN (EC) 81 MG TAB PO (10:17)
[2019-02-07] MEDS: LEVETIRACETAM 500 MG TAB PO ×2 (10:17→20:52)
[2019-02-07] MEDS: LACTOBACILLUS RHAMNOSUS CAP PO ×2 (10:17→20:51)
[2019-02-07] MEDS: MINOXIDIL 2.5 MG TAB PO ×2 (10:18→20:51)
[2019-02-07] MEDS: NIFEdipine (XL) 60 MG TAB PO ×2 (10:18→20:52)
[2019-02-07] MEDS: RIFAMPIN 300 MG CAP PO (10:18)
[2019-02-07] MEDS: LISINOPRIL 20 MG TAB PO (10:19)
[2019-02-07] MEDS: METOPROLOL (XL) 100 MG TAB PO (10:19)
[2019-02-07] MEDS: SOD FERRIC GLUC COMPLX 125 MG in SOD CHLORIDE 0.9% 100 ML IVPB (13:13)
[2019-02-07] MEDS: LATANOPROST 0.005% 2.5 ML OPH BOTH EYES (20:50)
[2019-02-07] MEDS: ESCITALOPRAM 10 MG TAB PO (20:51)
[2019-02-07] MEDS: ATORVASTATIN 80 MG TAB PO (20:51)
[2019-02-07] MEDS: SENNA/DOCUSATE NA (8.6MG/50MG) TAB PO (20:52)
[2019-02-08 07:48] LABS: ADD MAN DIFF? NO
[2019-02-08 07:52] LABS: WHITE BLOOD COUNT 7.7 10^3/ul (4.8-10.8)
[2019-02-08 07:52] LABS: ABNORMAL IP MESSAGE 1; BASOPHIL # 0.1 10^3/ul (0.0-0.1); EOSINOPHILS # 0.2 10^3/ul (0.0-0.5); EOSINOPHILS % 2.6 % (0.0-7.0); HEMATOCRIT 22.3 % (37.0-47.0); LYMPHOCYTES # 1.7 10^3/ul (0.8-2.9); LYMPHOCYTES % 22.3 % (15.0-51.0); MEAN CORPUSCULAR HEMOGLOBIN 29.6 pg (29.0-33.0); MEAN CORPUSCULAR HGB CONC 30.5 g/dl (32.0-37.0); MEAN PLATELET VOLUME 8.5 fl (7.4-10.4); MONOCYTE # 0.8 10^3/ul (0.3-0.9); MONOCYTES % 10.2 % (0.0-11.0); NEUTROPHIL # 4.7 10^3/ul (1.6-7.5); NEUTROPHILS % 61.3 % (39.0-77.0); PLATELET COUNT 185 10^3/UL (140-415); RED CELL DISTRIBUTION WIDTH 15.5 % (11.5-14.5)
[2019-02-08 08:00] LABS: HEMOGLOBIN 6.8 g/dl (12.0-16.0); POSITIVE DIFF @See below
[2019-02-08] MEDS: INSULIN ASPART [NOVOLOG] 3 ML PEN SC ×4 (08:00→21:00)
[2019-02-08 08:18] LABS: ALANINE AMINOTRANSFERASE 11 IU/L (13-69); ALBUMIN 2.3 g/dl (3.3-4.9); ALBUMIN/GLOBULIN RATIO 0.56; ALKALINE PHOSPHATASE 246 IU/L (42-121); ANION GAP 4 (5-13); ASPARTATE AMINO TRANSFERASE 28 IU/L (15-46); BILIRUBIN,INDIRECT 0.1 mg/dl (0-1.1); BILIRUBIN,TOTAL 0.1 mg/dl (0.2-1.3); BLOOD UREA NITROGEN 22 mg/dl (7-20); CALCIUM 7.8 mg/dl (8.4-10.2); CARBON DIOXIDE 26 mmol/L (21-31); CHLORIDE 104 mmol/L (97-110); CREATININE 4.28 mg/dl (0.44-1.00); Estimated GFR 11 mL/min (>60); GLUCOSE 120 mg/dl (70-220); POTASSIUM 4.5 mmol/L (3.5-5.1); SODIUM 134 mmol/L (135-144); TOTAL PROTEIN 6.4 g/dl (6.1-8.1)
[2019-02-08] MEDS: METOPROLOL (XL) 100 MG TAB PO (09:00)
[2019-02-08] MEDS: MINOXIDIL 2.5 MG TAB PO ×2 (09:00→21:00)
[2019-02-08] MEDS: LISINOPRIL 20 MG TAB PO (09:00)
[2019-02-08] MEDS: NIFEdipine (XL) 60 MG TAB PO ×2 (09:00→21:00)
[2019-02-08] MEDS: DORZOLAMIDE/TIMOLOL/PF 0.2 ML DROPERETTE BOTH EYES ×2 (09:19→21:10)
[2019-02-08] MEDS: BRIMONIDINE 0.2% 5 ML BTL BOTH EYES ×3 (09:20→21:10)
[2019-02-08] MEDS: ASPIRIN (EC) 81 MG TAB PO (09:21)
[2019-02-08] MEDS: LEVETIRACETAM 500 MG TAB PO ×2 (09:21→21:09)
[2019-02-08] MEDS: RIFAMPIN 300 MG CAP PO (09:21)
[2019-02-08] MEDS: LACTOBACILLUS RHAMNOSUS CAP PO ×2 (09:21→21:10)
[2019-02-08] MEDS: SOD FERRIC GLUC COMPLX 125 MG in SOD CHLORIDE 0.9% 100 ML IVPB (13:22)
[2019-02-08] MEDS: ESCITALOPRAM 10 MG TAB PO (21:09)
[2019-02-08] MEDS: ATORVASTATIN 80 MG TAB PO (21:09)
[2019-02-08] MEDS: SENNA/DOCUSATE NA (8.6MG/50MG) TAB PO (21:09)
[2019-02-08] MEDS: LATANOPROST 0.005% 2.5 ML OPH BOTH EYES (21:10)
[2019-02-08] MEDS: HYDROCODONE/APAP (5/325) TAB PO (21:19)
[2019-02-08] MEDS: HEPARIN 1000 UNITS/ML 10 ML INJ CATHETER (22:43)
[2019-02-09] MEDS: EPOETIN ALFA-EPBX (ESRD) 10,000 UNIT/ML VIAL SC (00:06)
[2019-02-09 08:05] LABS: OCCULT BLOOD STOOL NEGATIVE (NEGATIVE)
[2019-02-09] MEDS: RIFAMPIN 300 MG CAP PO (09:19)
[2019-02-09] MEDS: BRIMONIDINE 0.2% 5 ML BTL BOTH EYES ×3 (09:19→21:46)
[2019-02-09] MEDS: LEVETIRACETAM 500 MG TAB PO ×2 (09:19→21:45)
[2019-02-09] MEDS: DORZOLAMIDE/TIMOLOL/PF 0.2 ML DROPERETTE BOTH EYES ×2 (09:19→21:46)
[2019-02-09] MEDS: ASPIRIN (EC) 81 MG TAB PO (09:19)
[2019-02-09] MEDS: LACTOBACILLUS RHAMNOSUS CAP PO ×2 (09:19→21:45)
[2019-02-09] MEDS: NIFEdipine (XL) 60 MG TAB PO ×2 (09:24→21:51)
[2019-02-09] MEDS: LISINOPRIL 20 MG TAB PO (09:25)
[2019-02-09] MEDS: MINOXIDIL 2.5 MG TAB PO ×2 (09:25→21:00)
[2019-02-09] MEDS: METOPROLOL (XL) 100 MG TAB PO (09:25)
[2019-02-09] MEDS: INSULIN ASPART [NOVOLOG] 3 ML PEN SC ×4 (09:26→21:47)
[2019-02-09] MEDS: SOD FERRIC GLUC COMPLX 125 MG in SOD CHLORIDE 0.9% 100 ML IVPB (12:46)
[2019-02-09] MEDS: VANCOMYCIN 1 GM 250 ML IVPB (21:45)
[2019-02-09] MEDS: SENNA/DOCUSATE NA (8.6MG/50MG) TAB PO (21:46)
[2019-02-09] MEDS: ATORVASTATIN 80 MG TAB PO (21:47)
[2019-02-09] MEDS: ESCITALOPRAM 10 MG TAB PO (21:47)
[2019-02-09] MEDS: LATANOPROST 0.005% 2.5 ML OPH BOTH EYES (21:52)
[2019-02-10 05:51] LABS: ADD MAN DIFF? NO
[2019-02-10 05:56] LABS: ABNORMAL IP MESSAGE 1; BASOPHIL # 0.1 10^3/ul (0.0-0.1); BASOPHILS % 0.8 % (0.0-2.0); EOSINOPHILS # 0.2 10^3/ul (0.0-0.5); EOSINOPHILS % 1.9 % (0.0-7.0); HEMATOCRIT 20.7 % (37.0-47.0); LYMPHOCYTES # 1.9 10^3/ul (0.8-2.9); LYMPHOCYTES % 23.7 % (15.0-51.0); MEAN CORPUSCULAR HGB CONC 30.4 g/dl (32.0-37.0); MEAN CORPUSCULAR VOLUME 98.6 fl (82.0-101.0); MEAN PLATELET VOLUME 8.9 fl (7.4-10.4); MONOCYTE # 0.9 10^3/ul (0.3-0.9); NEUTROPHIL # 4.8 10^3/ul (1.6-7.5); NEUTROPHILS % 60.6 % (39.0-77.0); NUCLEATED RED BLOOD CELLS% 0.3 /100WBC (0.0-0.0); PLATELET COUNT 223 10^3/UL (140-415); RED CELL DISTRIBUTION WIDTH 15.9 % (11.5-14.5)
[2019-02-10 06:00] LABS: POSITIVE DIFF @See below
[2019-02-10 06:03] LABS: HEMOGLOBIN 6.3 g/dl (12.0-16.0)
[2019-02-10 06:22] LABS: ANION GAP 7 (5-13); BLOOD UREA NITROGEN 16 mg/dl (7-20); CALCIUM 7.5 mg/dl (8.4-10.2); CARBON DIOXIDE 27 mmol/L (21-31); CHLORIDE 101 mmol/L (97-110); CREATININE 3.76 mg/dl (0.44-1.00); Estimated GFR 13 mL/min (>60); GLUCOSE 146 mg/dl (70-220); MAGNESIUM 1.9 mg/dl (1.7-2.5); PHOSPHORUS 2.3 mg/dl (2.5-4.9); SODIUM 135 mmol/L (135-144)
[2019-02-10] MEDS: DORZOLAMIDE/TIMOLOL/PF 0.2 ML DROPERETTE BOTH EYES ×2 (08:28→20:31)
[2019-02-10] MEDS: ASPIRIN (EC) 81 MG TAB PO (08:28)
[2019-02-10] MEDS: LACTOBACILLUS RHAMNOSUS CAP PO ×2 (08:28→20:32)
[2019-02-10] MEDS: METOPROLOL (XL) 100 MG TAB PO (08:28)
[2019-02-10] MEDS: RIFAMPIN 300 MG CAP PO (08:29)
[2019-02-10] MEDS: LEVETIRACETAM 500 MG TAB PO ×2 (08:29→20:32)
[2019-02-10] MEDS: LISINOPRIL 20 MG TAB PO (08:29)
[2019-02-10] MEDS: MINOXIDIL 2.5 MG TAB PO ×2 (08:29→20:33)
[2019-02-10] MEDS: NIFEdipine (XL) 60 MG TAB PO ×2 (08:29→20:33)
[2019-02-10] MEDS: BRIMONIDINE 0.2% 5 ML BTL BOTH EYES ×3 (08:30→20:31)
[2019-02-10] MEDS: INSULIN ASPART [NOVOLOG] 3 ML PEN SC ×4 (08:37→20:34)
[2019-02-10 10:32] LABS: IMMEDIATE SPIN CROSSMATCH 1 2
[2019-02-10] MEDS: HEPARIN 1000 UNITS/ML 10 ML INJ CATHETER (13:34)
[2019-02-10] MEDS: SOD FERRIC GLUC COMPLX 125 MG in SOD CHLORIDE 0.9% 100 ML IVPB (14:16)
[2019-02-10] MEDS: EPOETIN ALFA-EPBX (ESRD) 10,000 UNIT/ML VIAL SC (18:18)
[2019-02-10] MEDS: LATANOPROST 0.005% 2.5 ML OPH BOTH EYES (20:31)
[2019-02-10] MEDS: SENNA/DOCUSATE NA (8.6MG/50MG) TAB PO (20:32)
[2019-02-10] MEDS: ESCITALOPRAM 10 MG TAB PO (20:32)
[2019-02-10] MEDS: ATORVASTATIN 80 MG TAB PO (20:32)
[2019-02-11] MEDS: HYDROCODONE/APAP (5/325) TAB PO (00:21)
[2019-02-11] MEDS: INSULIN ASPART [NOVOLOG] 3 ML PEN SC ×3 (08:05→17:30)
[2019-02-11] MEDS: LEVETIRACETAM 500 MG TAB PO (09:44)
[2019-02-11] MEDS: RIFAMPIN 300 MG CAP PO (09:44)
[2019-02-11] MEDS: NIFEdipine (XL) 60 MG TAB PO (09:45)
[2019-02-11] MEDS: LACTOBACILLUS RHAMNOSUS CAP PO (09:45)
[2019-02-11] MEDS: ASPIRIN (EC) 81 MG TAB PO (09:45)
[2019-02-11] MEDS: MINOXIDIL 2.5 MG TAB PO (09:45)
[2019-02-11] MEDS: METOPROLOL (XL) 100 MG TAB PO (09:46)
[2019-02-11] MEDS: LISINOPRIL 20 MG TAB PO (09:46)
[2019-02-11] MEDS: DORZOLAMIDE/TIMOLOL/PF 0.2 ML DROPERETTE BOTH EYES (09:47)
[2019-02-11] MEDS: BRIMONIDINE 0.2% 5 ML BTL BOTH EYES ×2 (09:47→14:01)
[2019-02-11 10:39] LABS: ADD MAN DIFF? NO
[2019-02-11 10:44] LABS: WHITE BLOOD COUNT 8.5 10^3/ul (4.8-10.8)
[2019-02-11 10:44] LABS: BASOPHIL # 0.1 10^3/ul (0.0-0.1); BASOPHILS % 0.9 % (0.0-2.0); EOSINOPHILS # 0.1 10^3/ul (0.0-0.5); EOSINOPHILS % 1.3 % (0.0-7.0); HEMOGLOBIN 9.3 g/dl (12.0-16.0); LYMPHOCYTES # 1.7 10^3/ul (0.8-2.9); MEAN CORPUSCULAR HEMOGLOBIN 29.9 pg (29.0-33.0); MEAN CORPUSCULAR HGB CONC 32.1 g/dl (32.0-37.0); MEAN CORPUSCULAR VOLUME 93.2 fl (82.0-101.0); MEAN PLATELET VOLUME 8.1 fl (7.4-10.4); MONOCYTE # 0.9 10^3/ul (0.3-0.9); MONOCYTES % 10.2 % (0.0-11.0); NEUTROPHIL # 5.6 10^3/ul (1.6-7.5); NEUTROPHILS % 65.5 % (39.0-77.0); PLATELET COUNT 212 10^3/UL (140-415); RED BLOOD COUNT 3.11 10^6/ul (4.20-5.40); RED CELL DISTRIBUTION WIDTH 16.2 % (11.5-14.5)
[2019-02-11] MEDS: SOD FERRIC GLUC COMPLX 125 MG in SOD CHLORIDE 0.9% 100 ML IVPB (14:01)
== END 2019-02-11 19:00 | disposition home health service (06) | DRG 314 ==
LOC: PP2 02-01 17:10 → 6WM 19:36 → PP2 01-30 20:33
PROVIDERS: Hospitalist
PROC: 02HV33Z Insertion of Infusion Device into Superior Vena Cava, Percutaneous Approach (ICD-10-PCS; principal; 2019-01-27 11:20)
PROC: 02H633Z Insertion of Infusion Device into Right Atrium, Percutaneous Approach (ICD-10-PCS; 2019-01-27 11:20)
PROC: 0JH63XZ Insertion of Tunneled Vascular Access Device into Chest Subcutaneous Tissue and Fascia, Percutaneous Approach (ICD-10-PCS; 2019-01-27 11:20)
PROC: 5A1D70Z Performance of Urinary Filtration, Intermittent, Less than 6 Hours Per Day (ICD-10-PCS; 2019-01-27 11:20)
PROC: 30233N1 Transfusion of Nonautologous Red Blood Cells into Peripheral Vein, Percutaneous Approach (ICD-10-PCS; 2019-01-27 11:20)
DX: T82.7XXA Infection and inflammatory reaction due to other cardiac and vascular devices, implants and grafts, initial encounter (principal); A41.02 Sepsis due to Methicillin resistant Staphylococcus aureus; N18.6 End stage renal disease; E87.1 Hypo-osmolality and hyponatremia; I12.0 Hypertensive chronic kidney disease with stage 5 chronic kidney disease or end stage renal disease; H33.20 Serous retinal detachment, unspecified eye; H40.20X0 Unspecified primary angle-closure glaucoma, stage unspecified; E11.22 Type 2 diabetes mellitus with diabetic chronic kidney disease; Z99.2 Dependence on renal dialysis; D64.9 Anemia, unspecified; R62.7 Adult failure to thrive; F43.20 Adjustment disorder, unspecified; M79.605 Pain in left leg; E88.81 Metabolic syndrome and other insulin resistance; G40.909 Epilepsy, unspecified, not intractable, without status epilepticus; E78.5 Hyperlipidemia, unspecified; I25.10 Atherosclerotic heart disease of native coronary artery without angina pectoris; H54.7 Unspecified visual loss; H40.10X0 Unspecified open-angle glaucoma, stage unspecified; H43.10 Vitreous hemorrhage, unspecified eye; Z68.29 Body mass index [BMI] 29.0-29.9, adult; Z91.19 Patient's noncompliance with other medical treatment and regimen; Z86.73 Personal history of transient ischemic attack (TIA), and cerebral infarction without residual deficits
CPT/HCPCS: 36430; 36556; 36558; 71045; 76942; 78452; 78806; 80048; 80053; 80202; 82270; 82550; 82728; 82962; 83540; 83735; 84100; 84484; 85025; 85610; 86706; 86850; 86900; 86901; 86920; 87040-91; 87081; 87340; 88300; 90935; 93005; 93017; 93312; 93325; 93970; 97110; 97116; 97162; 97165; 97530

== ENCOUNTER 2019-04-08 19:26 | Inpatient (IN) | payer OTHER ==
[2019-04-08] MEDS: HYDROCODONE/APAP (10/325) TAB PO ×2 (19:44→23:55)
[2019-04-08 21:41] LABS: ANION GAP 10 (5-13); BLOOD UREA NITROGEN 44 mg/dl (7-20); CALCIUM 8.2 mg/dl (8.4-10.2); CARBON DIOXIDE 27 mmol/L (21-31); CHLORIDE 95 mmol/L (97-110); CREATININE 5.69 mg/dl (0.44-1.00); Estimated GFR 8 mL/min (>60); GLUCOSE 98 mg/dl (70-220); POTASSIUM 3.9 mmol/L (3.5-5.1); SODIUM 132 mmol/L (135-144)
[2019-04-08 23:59] LABS: ADD MAN DIFF? NO
[2019-04-09] LABS: BASOPHIL # 0.1 10^3/ul (0.0-0.1); BASOPHILS % 0.4 % (0.0-2.0); EOSINOPHILS # 0.2 10^3/ul (0.0-0.5); EOSINOPHILS % 1.2 % (0.0-7.0); HEMATOCRIT 26.4 % (37.0-47.0); HEMOGLOBIN 8.2 g/dl (12.0-16.0); LYMPHOCYTES # 1.1 10^3/ul (0.8-2.9); LYMPHOCYTES % 6.8 % (15.0-51.0); MEAN CORPUSCULAR HEMOGLOBIN 31.1 pg (29.0-33.0); MEAN CORPUSCULAR HGB CONC 31.1 g/dl (32.0-37.0); MEAN PLATELET VOLUME 8.6 fl (7.4-10.4); MONOCYTE # 0.8 10^3/ul (0.3-0.9); MONOCYTES % 4.9 % (0.0-11.0); NEUTROPHIL # 13.1 10^3/ul (1.6-7.5); NEUTROPHILS % 85.2 % (39.0-77.0); PLATELET COUNT 451 10^3/UL (140-415); RED BLOOD COUNT 2.64 10^6/ul (4.20-5.40); RED CELL DISTRIBUTION WIDTH 14.2 % (11.5-14.5)
[2019-04-09] LABS: WHITE BLOOD COUNT 15.3 10^3/ul (4.8-10.8)
[2019-04-09] MEDS: HYDROmorphONE 1 MG/ML SYG IV ×2 (00:06→00:36)
[2019-04-09] MEDS: ONDANSETRON 4 MG INJ IV ×3 (00:06→10:04)
[2019-04-09] MEDS: LEVOFLOXACIN 750MG/D5W (PMX) 150 ML IVPB (00:23)
[2019-04-09] MEDS ORDERED: ONDANSETRON 4 MG INJ IV (00:30)
[2019-04-09] MEDS: SOD CHLORIDE 0.9% 1,000 ML IV ×2 (00:36→11:18)
[2019-04-09] MEDS: VANCOMYCIN 1 GM (PMX) 250 ML IVPB (01:19)
[2019-04-09] MEDS ORDERED: ACCU-CHEK XX (02:00)
[2019-04-09] MEDS ORDERED: MAGNESIUM HYDROXIDE 30ML CUP PO (02:00)
[2019-04-09] MEDS ORDERED: ALBUTEROL/IPRATROPIUM (NEB) 3 ML AMP HHN (02:00)
[2019-04-09] MEDS ORDERED: ACETAMINOPHEN 325 MG TAB PO (02:00)
[2019-04-09] MEDS ORDERED: NACL 0.9% 3 ML SYG IV (02:00)
[2019-04-09] MEDS ORDERED: NITROGLYCERIN (SL) 0.4 MG TAB SL (02:00)
[2019-04-09] MEDS ORDERED: VANCOMYCIN IV PER PHARMACY XX (02:00)
[2019-04-09] MEDS ORDERED: DOCUSATE SODIUM 100 MG CAP PO (02:00)
[2019-04-09] MEDS ORDERED: LORAZEPAM 2 MG INJ IV (02:00)
[2019-04-09] MEDS: ACETAMINOPHEN 325 MG TAB PO ×3 (02:02→16:08)
[2019-04-09] MEDS: DEXAMETHASONE 4 MG/ML 1 ML INJ IV ×4 (02:09→21:10)
[2019-04-09] MEDS ORDERED: GLUCOSE GEL 15 GRAM TUBE PO (02:30)
[2019-04-09] MEDS ORDERED: GLUCAGON 1 MG INJ IM (02:30)
[2019-04-09] MEDS ORDERED: DEXTROSE 50% 50 ML SYRINGE IV (02:30)
[2019-04-09 02:57] LABS: LACTIC ACID 0.7 mmol/L (0.5-2.0)
[2019-04-09 02:59] LABS: INR 0.96; PROTIME 12.9 Sec (11.9-14.9)
[2019-04-09 03:00] LABS: PARTIAL THROMBOPLASTIN TIME 35.4 Sec (23.0-35.0)
[2019-04-09 03:16] LABS: FREE T4 (FREE THYROXINE) 2.22 ng/dl (0.64-1.79)
[2019-04-09] MEDS: AZTREONAM 2 GM in SOD CHLORIDE 0.9% 100 ML IVPB (06:10)
[2019-04-09] MEDS: PANTOPRAZOLE (EC) 40 MG TAB PO (06:10)
[2019-04-09] MEDS: INSULIN ASPART [NOVOLOG] 3 ML PEN SC ×5 (06:12→21:00)
[2019-04-09 06:57] LABS: LACTIC ACID 0.8 mmol/L (0.5-2.0)
[2019-04-09] MEDS: morphine 2 MG INJ IV ×3 (10:06→18:10)
[2019-04-09] MEDS: DORZOLAMIDE/TIMOLOL/PF 0.2 ML DROPERETTE BOTH EYES ×2 (10:09→22:55)
[2019-04-09] MEDS: HEPARIN 5,000 UNIT/1 ML VIAL SC ×2 (10:09→21:31)
[2019-04-09] MEDS: BRIMONIDINE 0.2% 5 ML BTL BOTH EYES ×3 (10:09→21:44)
[2019-04-09 10:40] LABS: LACTIC ACID 0.8 mmol/L (0.5-2.0)
[2019-04-09] MEDS: HYDROCODONE/APAP (5/325) TAB PO (12:13)
[2019-04-09] MEDS: HEPARIN 1000 UNITS/ML 10 ML INJ CATHETER (15:12)
[2019-04-09 15:57] LABS: LACTIC ACID 0.9 mmol/L (0.5-2.0)
[2019-04-09] MEDS: LACTOBACILLUS RHAMNOSUS CAP PO ×2 (16:12→21:32)
[2019-04-09] MEDS: NIFEdipine (XL) 60 MG TAB PO ×2 (16:12→21:43)
[2019-04-09] MEDS: LEVETIRACETAM 500 MG TAB PO ×2 (16:12→21:43)
[2019-04-09] MEDS: METOPROLOL (XL) 100 MG TAB PO (16:13)
[2019-04-09] MEDS: MINOXIDIL 2.5 MG TAB PO ×2 (16:13→21:43)
[2019-04-09] MEDS: AZTREONAM 0.5 GM in SOD CHLORIDE 0.9% 50 ML IVPB ×2 (16:15→22:55)
[2019-04-09 18:35] LABS: LACTIC ACID 0.9 mmol/L (0.5-2.0)
[2019-04-09 20:58] LABS: HEPATITIS B SURFACE ANTIGEN NEGATIVE (NEGATIVE)
[2019-04-09] MEDS ORDERED: INSULIN GLARGINE 10 UNIT SC (21:00)
[2019-04-09] MEDS: INSULIN GLARGINE [LANTus] (100 UNITS/ML) SYG SC (21:30)
[2019-04-09] MEDS: ATORVASTATIN 80 MG TAB PO (21:32)
[2019-04-09] MEDS: ESCITALOPRAM 10 MG TAB PO (21:32)
[2019-04-09] MEDS: SENNA/DOCUSATE NA (8.6MG/50MG) TAB PO (21:43)
[2019-04-09] MEDS: LATANOPROST 0.005% 2.5 ML OPH BOTH EYES (22:54)
[2019-04-09 23:08] LABS: LACTIC ACID 0.8 mmol/L (0.5-2.0)
[2019-04-09 23:23] LABS: C-REACTIVE PROTEIN 11.1 mg/dl (0.0-0.9)
[2019-04-09 23:52] LABS: ERYTHROCYTE SEDIMENTATION RATE 90 mm/Hr (0-20)
[2019-04-10] MEDS: ACCU-CHEK XX (02:00)
[2019-04-10] MEDS: DEXAMETHASONE 4 MG/ML 1 ML INJ IV ×4 (02:11→20:44)
[2019-04-10] MEDS: morphine 2 MG INJ IV (03:07)
[2019-04-10] MEDS: HYDROCODONE/APAP (5/325) TAB PO (03:51)
[2019-04-10] MEDS: PANTOPRAZOLE (EC) 40 MG TAB PO (05:27)
[2019-04-10] MEDS: AZTREONAM 0.5 GM in SOD CHLORIDE 0.9% 50 ML IVPB ×2 (05:27→13:17)
[2019-04-10] MEDS: traMADol 50 MG TAB PO (05:27)
[2019-04-10] MEDS: INSULIN ASPART [NOVOLOG] 3 ML PEN SC ×4 (08:00→20:47)
[2019-04-10] MEDS: DORZOLAMIDE/TIMOLOL/PF 0.2 ML DROPERETTE BOTH EYES ×2 (08:02→20:44)
[2019-04-10] MEDS: LEVETIRACETAM 500 MG TAB PO ×2 (08:02→20:42)
[2019-04-10] MEDS: BRIMONIDINE 0.2% 5 ML BTL BOTH EYES ×3 (08:02→20:44)
[2019-04-10] MEDS: LACTOBACILLUS RHAMNOSUS CAP PO ×2 (08:02→20:42)
[2019-04-10] MEDS: MINOXIDIL 2.5 MG TAB PO ×2 (08:03→20:43)
[2019-04-10 08:25] LABS: ADD MAN DIFF? NO
[2019-04-10 08:30] LABS: BASOPHILS % 0.2 % (0.0-2.0); HEMATOCRIT 23.4 % (37.0-47.0); HEMOGLOBIN 7.3 g/dl (12.0-16.0); LYMPHOCYTES # 0.9 10^3/ul (0.8-2.9); LYMPHOCYTES % 4.7 % (15.0-51.0); MEAN CORPUSCULAR HEMOGLOBIN 31.2 pg (29.0-33.0); MEAN CORPUSCULAR HGB CONC 31.2 g/dl (32.0-37.0); MEAN PLATELET VOLUME 8.4 fl (7.4-10.4); MONOCYTE # 0.8 10^3/ul (0.3-0.9); MONOCYTES % 4.5 % (0.0-11.0); NEUTROPHIL # 16.5 10^3/ul (1.6-7.5); NEUTROPHILS % 88.5 % (39.0-77.0); PLATELET COUNT 445 10^3/UL (140-415); RED BLOOD COUNT 2.34 10^6/ul (4.20-5.40); RED CELL DISTRIBUTION WIDTH 14.6 % (11.5-14.5)
[2019-04-10 08:30] LABS: WHITE BLOOD COUNT 18.6 10^3/ul (4.8-10.8)
[2019-04-10 08:53] LABS: ALANINE AMINOTRANSFERASE 16 IU/L (13-69); ALBUMIN 2.9 g/dl (3.3-4.9); ALBUMIN/GLOBULIN RATIO 0.74; ALKALINE PHOSPHATASE 177 IU/L (42-121); ANION GAP 11 (5-13); ASPARTATE AMINO TRANSFERASE 21 IU/L (15-46); BILIRUBIN,INDIRECT 0.2 mg/dl (0-1.1); BILIRUBIN,TOTAL 0.2 mg/dl (0.2-1.3); BLOOD UREA NITROGEN 24 mg/dl (7-20); CARBON DIOXIDE 26 mmol/L (21-31); CHLORIDE 98 mmol/L (97-110); CREATININE 3.03 mg/dl (0.44-1.00); Estimated GFR 16 mL/min (>60); GLUCOSE 118 mg/dl (70-220); POTASSIUM 3.8 mmol/L (3.5-5.1); SODIUM 135 mmol/L (135-144); TOTAL PROTEIN 6.8 g/dl (6.1-8.1)
[2019-04-10 09:00] LABS: PHOSPHORUS 3.7 mg/dl (2.5-4.9)
[2019-04-10 09:00] LABS: CHOL/HDL RATIO 2.8 RATIO; CHOLESTEROL 105 mg/dl (100-200); HDL CHOLESTEROL 37 mg/dl (37-92); LDL CHOLESTEROL,CALCULATED 41 mg/dl; TRIGLYCERIDES 137 mg/dl (0-149)
[2019-04-10 09:06] LABS: HEMOGLOBIN A1C 5.1 % (0-5.9)
[2019-04-10] MEDS: HEPARIN 5,000 UNIT/1 ML VIAL SC ×2 (09:20→20:46)
[2019-04-10] MEDS: METOPROLOL (XL) 100 MG TAB PO (09:20)
[2019-04-10] MEDS: NIFEdipine (XL) 60 MG TAB PO ×2 (09:20→20:43)
[2019-04-10] MEDS: ATORVASTATIN 80 MG TAB PO (20:42)
[2019-04-10] MEDS: LATANOPROST 0.005% 2.5 ML OPH BOTH EYES (20:42)
[2019-04-10] MEDS: ESCITALOPRAM 10 MG TAB PO (20:42)
[2019-04-10] MEDS: INSULIN GLARGINE [LANTus] (100 UNITS/ML) SYG SC (20:46)
[2019-04-10] MEDS: SENNA/DOCUSATE NA (8.6MG/50MG) TAB PO (20:47)
[2019-04-11] MEDS: AZTREONAM 0.5 GM in SOD CHLORIDE 0.9% 50 ML IVPB ×2 (01:44→05:55)
[2019-04-11] MEDS: DEXAMETHASONE 4 MG/ML 1 ML INJ IV ×4 (01:47→20:00)
[2019-04-11] MEDS: ACCU-CHEK XX (02:00)
[2019-04-11] MEDS ORDERED: VANCOMYCIN IV PER PHARMACY XX (02:00)
[2019-04-11] MEDS: PANTOPRAZOLE (EC) 40 MG TAB PO (05:54)
[2019-04-11 06:00] LABS: ADD MAN DIFF? NO
[2019-04-11 06:10] LABS: BASOPHILS % 0.1 % (0.0-2.0); HEMATOCRIT 23.1 % (37.0-47.0); HEMOGLOBIN 7.1 g/dl (12.0-16.0); LYMPHOCYTES # 0.8 10^3/ul (0.8-2.9); LYMPHOCYTES % 4.7 % (15.0-51.0); MEAN CORPUSCULAR HEMOGLOBIN 30.6 pg (29.0-33.0); MEAN CORPUSCULAR HGB CONC 30.7 g/dl (32.0-37.0); MEAN CORPUSCULAR VOLUME 99.6 fl (82.0-101.0); MEAN PLATELET VOLUME 8.7 fl (7.4-10.4); MONOCYTE # 0.7 10^3/ul (0.3-0.9); MONOCYTES % 4.2 % (0.0-11.0); NEUTROPHIL # 14.7 10^3/ul (1.6-7.5); NEUTROPHILS % 89.5 % (39.0-77.0); PLATELET COUNT 414 10^3/UL (140-415); RED BLOOD COUNT 2.32 10^6/ul (4.20-5.40); RED CELL DISTRIBUTION WIDTH 14.8 % (11.5-14.5)
[2019-04-11 06:10] LABS: WHITE BLOOD COUNT 16.4 10^3/ul (4.8-10.8)
[2019-04-11 06:38] LABS: ANION GAP 9 (5-13); BLOOD UREA NITROGEN 35 mg/dl (7-20); CALCIUM 8.3 mg/dl (8.4-10.2); CARBON DIOXIDE 26 mmol/L (21-31); CHLORIDE 97 mmol/L (97-110); CREATININE 3.76 mg/dl (0.44-1.00); Estimated GFR 13 mL/min (>60); GLUCOSE 130 mg/dl (70-220); POTASSIUM 4.3 mmol/L (3.5-5.1); SODIUM 132 mmol/L (135-144)
[2019-04-11 06:39] LABS: IRON 64 ug/dl (35-150)
[2019-04-11 06:50] LABS: PHOSPHORUS 4.1 mg/dl (2.5-4.9)
[2019-04-11 06:50] LABS: % IRON SATURATION 46 % SAT (22-52); TOTAL IRON BINDING CAPACITY 140 ug/dl (241-421)
[2019-04-11 06:54] LABS: FREE THYROXINE INDEX (Calc) 3.46 ug/ml (0.65-3.89); T4 (THYROXINE) 6.4 ug/dl (5.5-11.0)
[2019-04-11] MEDS: BRIMONIDINE 0.2% 5 ML BTL BOTH EYES ×3 (08:46→21:03)
[2019-04-11] MEDS: INSULIN ASPART [NOVOLOG] 3 ML PEN SC ×4 (08:46→21:00)
[2019-04-11] MEDS: DORZOLAMIDE/TIMOLOL/PF 0.2 ML DROPERETTE BOTH EYES ×2 (08:47→21:03)
[2019-04-11] MEDS: LACTOBACILLUS RHAMNOSUS CAP PO (08:48)
[2019-04-11] MEDS: LEVETIRACETAM 500 MG TAB PO (08:48)
[2019-04-11] MEDS: NIFEdipine (XL) 60 MG TAB PO (08:48)
[2019-04-11] MEDS: MINOXIDIL 2.5 MG TAB PO (08:48)
[2019-04-11] MEDS: METOPROLOL (XL) 100 MG TAB PO (08:49)
[2019-04-11] MEDS: HEPARIN 5,000 UNIT/1 ML VIAL SC ×2 (08:51→21:05)
[2019-04-11] MEDS: RIFAMPIN 300 MG CAP PO (13:09)
[2019-04-11] MEDS: LATANOPROST 0.005% 2.5 ML OPH BOTH EYES (21:03)
[2019-04-11] MEDS: INSULIN GLARGINE [LANTus] (100 UNITS/ML) SYG SC (21:04)
[2019-04-12] MEDS: HEPARIN 1000 UNITS/ML 10 ML INJ CATHETER (01:45)
[2019-04-12] MEDS: ACCU-CHEK XX (02:00)
[2019-04-12] MEDS: ESCITALOPRAM 10 MG TAB PO ×2 (02:42→21:33)
[2019-04-12] MEDS: LEVETIRACETAM 500 MG TAB PO ×3 (02:42→21:34)
[2019-04-12] MEDS: LACTOBACILLUS RHAMNOSUS CAP PO ×3 (02:42→21:33)
[2019-04-12] MEDS: MINOXIDIL 2.5 MG TAB PO ×3 (02:42→21:35)
[2019-04-12] MEDS: DEXAMETHASONE 4 MG/ML 1 ML INJ IV (02:43)
[2019-04-12] MEDS: SENNA/DOCUSATE NA (8.6MG/50MG) TAB PO ×2 (02:43→21:33)
[2019-04-12] MEDS: NIFEdipine (XL) 60 MG TAB PO ×3 (02:43→21:34)
[2019-04-12] MEDS: ATORVASTATIN 80 MG TAB PO ×2 (02:44→21:34)
[2019-04-12 05:55] LABS: ADD MAN DIFF? NO
[2019-04-12 05:59] LABS: BASOPHILS % 0.1 % (0.0-2.0); EOSINOPHILS % 0.1 % (0.0-7.0); HEMATOCRIT 24.5 % (37.0-47.0); HEMOGLOBIN 7.9 g/dl (12.0-16.0); LYMPHOCYTES % 6.1 % (15.0-51.0); MEAN CORPUSCULAR HEMOGLOBIN 31.7 pg (29.0-33.0); MEAN CORPUSCULAR HGB CONC 32.2 g/dl (32.0-37.0); MEAN CORPUSCULAR VOLUME 98.4 fl (82.0-101.0); MEAN PLATELET VOLUME 8.4 fl (7.4-10.4); MONOCYTE # 1.3 10^3/ul (0.3-0.9); MONOCYTES % 7.3 % (0.0-11.0); NEUTROPHIL # 14.5 10^3/ul (1.6-7.5); NEUTROPHILS % 84.9 % (39.0-77.0); PLATELET COUNT 412 10^3/UL (140-415); RED BLOOD COUNT 2.49 10^6/ul (4.20-5.40); RED CELL DISTRIBUTION WIDTH 14.6 % (11.5-14.5)
[2019-04-12] MEDS: PANTOPRAZOLE (EC) 40 MG TAB PO (06:00)
[2019-04-12 06:36] LABS: ANION GAP 8 (5-13); BLOOD UREA NITROGEN 19 mg/dl (7-20); CALCIUM 7.9 mg/dl (8.4-10.2); CARBON DIOXIDE 30 mmol/L (21-31); CHLORIDE 101 mmol/L (97-110); CREATININE 2.17 mg/dl (0.44-1.00); Estimated GFR 24 mL/min (>60); GLUCOSE 60 mg/dl (70-220); POTASSIUM 3.8 mmol/L (3.5-5.1); SODIUM 139 mmol/L (135-144)
[2019-04-12] MEDS: INSULIN ASPART [NOVOLOG] 3 ML PEN SC ×4 (08:00→21:00)
[2019-04-12] MEDS: BRIMONIDINE 0.2% 5 ML BTL BOTH EYES ×3 (09:00→21:49)
[2019-04-12] MEDS: DORZOLAMIDE/TIMOLOL/PF 0.2 ML DROPERETTE BOTH EYES ×2 (09:00→21:36)
[2019-04-12] MEDS ORDERED: MIDAZOLAM 1 MG/ML 2 ML INJ (09:06)
[2019-04-12] MEDS ORDERED: FENTAnyl 50 MCG/ML VIAL (09:07)
[2019-04-12] MEDS: hydrALAzine 20 MG INJ IV (10:53)
[2019-04-12] MEDS: ONDANSETRON 4 MG INJ IV (10:53)
[2019-04-12] MEDS ORDERED: DIPHENHYDRAMINE 50 MG INJ IV (11:00)
[2019-04-12] MEDS ORDERED: ALBUTEROL 0.083% (NEB) 2.5 MG/3 ML AMP HHN (11:00)
[2019-04-12] MEDS ORDERED: MIDAZOLAM 1 MG/ML 2 ML INJ IV (11:00)
[2019-04-12] MEDS ORDERED: FENTAnyl 50 MCG/ML VIAL IV (11:00)
[2019-04-12] MEDS ORDERED: LABETALOL HCL 20MG INJ IV (11:00)
[2019-04-12] MEDS ORDERED: EPHEDrine 25 MG/5 ML SYG IV (11:00)
[2019-04-12] MEDS: FENTAnyl 50 MCG/ML VIAL IV (11:05)
[2019-04-12] MEDS: METOPROLOL (XL) 100 MG TAB PO (11:58)
[2019-04-12] MEDS: RIFAMPIN 300 MG CAP PO (11:59)
[2019-04-12] MEDS: HEPARIN 5,000 UNIT/1 ML VIAL SC ×2 (12:00→21:51)
[2019-04-12] MEDS: morphine 2 MG INJ IV (14:40)
[2019-04-12] MEDS: GLUCOSE GEL 15 GRAM TUBE PO (17:13)
[2019-04-12] MEDS: LATANOPROST 0.005% 2.5 ML OPH BOTH EYES (21:33)
[2019-04-12] MEDS: HYDROCODONE/APAP (5/325) TAB PO (21:48)
[2019-04-12] MEDS: INSULIN GLARGINE [LANTus] (100 UNITS/ML) SYG SC (21:50)
[2019-04-13] MEDS: ACCU-CHEK XX ×2 (02:00)
[2019-04-13] MEDS: VANCOMYCIN 1 GM 250 ML IVPB (02:35)
[2019-04-13] MEDS: GLUCOSE GEL 15 GRAM TUBE BUCCAL ×2 (02:42→03:03)
[2019-04-13] MEDS: HYDROCODONE/APAP (5/325) TAB PO ×2 (04:29→08:30)
[2019-04-13] MEDS: PANTOPRAZOLE (EC) 40 MG TAB PO (06:32)
[2019-04-13 07:40] LABS: ADD MAN DIFF? NO
[2019-04-13 07:56] LABS: WHITE BLOOD COUNT 13.8 10^3/ul (4.8-10.8)
[2019-04-13 07:56] LABS: BASOPHILS % 0.1 % (0.0-2.0); EOSINOPHILS # 0.2 10^3/ul (0.0-0.5); EOSINOPHILS % 1.2 % (0.0-7.0); HEMATOCRIT 25.8 % (37.0-47.0); HEMOGLOBIN 7.9 g/dl (12.0-16.0); LYMPHOCYTES # 1.4 10^3/ul (0.8-2.9); MEAN CORPUSCULAR HEMOGLOBIN 30.7 pg (29.0-33.0); MEAN CORPUSCULAR HGB CONC 30.6 g/dl (32.0-37.0); MEAN CORPUSCULAR VOLUME 100.4 fl (82.0-101.0); MEAN PLATELET VOLUME 8.4 fl (7.4-10.4); MONOCYTE # 1.4 10^3/ul (0.3-0.9); MONOCYTES % 10.1 % (0.0-11.0); NEUTROPHIL # 10.7 10^3/ul (1.6-7.5); NEUTROPHILS % 77.5 % (39.0-77.0); PLATELET COUNT 378 10^3/UL (140-415); RED BLOOD COUNT 2.57 10^6/ul (4.20-5.40); RED CELL DISTRIBUTION WIDTH 14.6 % (11.5-14.5)
[2019-04-13] MEDS: INSULIN ASPART [NOVOLOG] 3 ML PEN SC ×4 (08:00→21:00)
[2019-04-13] MEDS: DEXTROSE 50% 50 ML SYRINGE IV (08:08)
[2019-04-13 08:19] LABS: ANION GAP 7 (5-13); BLOOD UREA NITROGEN 28 mg/dl (7-20); CALCIUM 7.9 mg/dl (8.4-10.2); CARBON DIOXIDE 29 mmol/L (21-31); CHLORIDE 100 mmol/L (97-110); CREATININE 3.36 mg/dl (0.44-1.00); Estimated GFR 15 mL/min (>60); GLUCOSE 53 mg/dl (70-220); POTASSIUM 4.4 mmol/L (3.5-5.1); SODIUM 136 mmol/L (135-144)
[2019-04-13] MEDS: LEVETIRACETAM 500 MG TAB PO ×2 (08:30→21:23)
[2019-04-13] MEDS: RIFAMPIN 300 MG CAP PO (08:30)
[2019-04-13] MEDS: MINOXIDIL 2.5 MG TAB PO ×2 (08:31→21:27)
[2019-04-13] MEDS: DORZOLAMIDE/TIMOLOL/PF 0.2 ML DROPERETTE BOTH EYES ×2 (08:31→21:24)
[2019-04-13] MEDS: LACTOBACILLUS RHAMNOSUS CAP PO ×2 (08:32→21:23)
[2019-04-13] MEDS: HEPARIN 5,000 UNIT/1 ML VIAL SC ×2 (08:34→21:28)
[2019-04-13] MEDS: METOPROLOL (XL) 100 MG TAB PO (09:00)
[2019-04-13] MEDS: NIFEdipine (XL) 60 MG TAB PO ×2 (09:00→21:30)
[2019-04-13] MEDS: LISINOPRIL 20 MG TAB PO (09:30)
[2019-04-13] MEDS: BRIMONIDINE 0.2% 5 ML BTL BOTH EYES ×3 (09:58→21:24)
[2019-04-13] MEDS: morphine 2 MG INJ IV (11:25)
[2019-04-13] MEDS: DEXTROSE 5%-0.45% NACL 1,000 ML IV (16:40)
[2019-04-13] MEDS: HEPARIN 1000 UNITS/ML 10 ML INJ CATHETER (18:26)
[2019-04-13] MEDS: ESCITALOPRAM 10 MG TAB PO (21:22)
[2019-04-13] MEDS: ATORVASTATIN 80 MG TAB PO (21:22)
[2019-04-13] MEDS: SENNA/DOCUSATE NA (8.6MG/50MG) TAB PO (21:23)
[2019-04-13] MEDS: LATANOPROST 0.005% 2.5 ML OPH BOTH EYES (21:23)
[2019-04-14] MEDS: ACCU-CHEK XX ×2 (02:00)
[2019-04-14 05:37] LABS: ADD MAN DIFF? NO
[2019-04-14] MEDS: PANTOPRAZOLE (EC) 40 MG TAB PO (05:39)
[2019-04-14 05:44] LABS: BASOPHILS % 0.2 % (0.0-2.0); EOSINOPHILS # 0.2 10^3/ul (0.0-0.5); EOSINOPHILS % 1.2 % (0.0-7.0); HEMATOCRIT 27.7 % (37.0-47.0); HEMOGLOBIN 8.5 g/dl (12.0-16.0); LYMPHOCYTES # 1.3 10^3/ul (0.8-2.9); LYMPHOCYTES % 9.6 % (15.0-51.0); MEAN CORPUSCULAR HEMOGLOBIN 30.4 pg (29.0-33.0); MEAN CORPUSCULAR HGB CONC 30.7 g/dl (32.0-37.0); MEAN CORPUSCULAR VOLUME 98.9 fl (82.0-101.0); MEAN PLATELET VOLUME 8.5 fl (7.4-10.4); MONOCYTE # 1.3 10^3/ul (0.3-0.9); NEUTROPHIL # 10.1 10^3/ul (1.6-7.5); NEUTROPHILS % 77.8 % (39.0-77.0); PLATELET COUNT 373 10^3/UL (140-415); RED CELL DISTRIBUTION WIDTH 14.6 % (11.5-14.5)
[2019-04-14 06:09] LABS: ANION GAP 6 (5-13); BLOOD UREA NITROGEN 14 mg/dl (7-20); CALCIUM 7.9 mg/dl (8.4-10.2); CARBON DIOXIDE 31 mmol/L (21-31); CHLORIDE 98 mmol/L (97-110); CREATININE 2.46 mg/dl (0.44-1.00); Estimated GFR 21 mL/min (>60); GLUCOSE 149 mg/dl (70-220); POTASSIUM 4.2 mmol/L (3.5-5.1); SODIUM 135 mmol/L (135-144)
[2019-04-14] MEDS: INSULIN ASPART [NOVOLOG] 3 ML PEN SC ×4 (08:00→20:56)
[2019-04-14] MEDS: HEPARIN 5,000 UNIT/1 ML VIAL SC ×2 (08:14→21:05)
[2019-04-14] MEDS: METOPROLOL (XL) 100 MG TAB PO (08:15)
[2019-04-14] MEDS: BRIMONIDINE 0.2% 5 ML BTL BOTH EYES ×3 (08:16→20:58)
[2019-04-14] MEDS: DORZOLAMIDE/TIMOLOL/PF 0.2 ML DROPERETTE BOTH EYES ×2 (08:16→20:59)
[2019-04-14] MEDS: RIFAMPIN 300 MG CAP PO (08:16)
[2019-04-14] MEDS: LEVETIRACETAM 500 MG TAB PO ×2 (08:17→20:57)
[2019-04-14] MEDS: LACTOBACILLUS RHAMNOSUS CAP PO ×2 (08:17→20:57)
[2019-04-14] MEDS: MINOXIDIL 2.5 MG TAB PO ×2 (08:17→21:01)
[2019-04-14] MEDS: NIFEdipine (XL) 60 MG TAB PO ×2 (08:17→21:02)
[2019-04-14] MEDS: morphine 2 MG INJ IV ×2 (08:18→17:56)
[2019-04-14] MEDS: LISINOPRIL 20 MG TAB PO (08:18)
[2019-04-14] MEDS: ONDANSETRON 4 MG INJ IV (17:56)
[2019-04-14] MEDS: ATORVASTATIN 80 MG TAB PO (20:57)
[2019-04-14] MEDS: SENNA/DOCUSATE NA (8.6MG/50MG) TAB PO (20:58)
[2019-04-14] MEDS: ESCITALOPRAM 10 MG TAB PO (20:58)
[2019-04-14] MEDS: LATANOPROST 0.005% 2.5 ML OPH BOTH EYES (21:06)
[2019-04-15] MEDS: ACCU-CHEK XX ×2 (01:39→02:00)
[2019-04-15] MEDS: PANTOPRAZOLE (EC) 40 MG TAB PO (06:23)
[2019-04-15] MEDS: DORZOLAMIDE/TIMOLOL/PF 0.2 ML DROPERETTE BOTH EYES ×2 (08:49→21:24)
[2019-04-15] MEDS: HEPARIN 5,000 UNIT/1 ML VIAL SC ×2 (08:49→21:33)
[2019-04-15] MEDS: BRIMONIDINE 0.2% 5 ML BTL BOTH EYES ×3 (08:50→21:25)
[2019-04-15] MEDS: LEVETIRACETAM 500 MG TAB PO ×2 (08:51→21:24)
[2019-04-15] MEDS: LACTOBACILLUS RHAMNOSUS CAP PO ×2 (08:51→21:24)
[2019-04-15] MEDS: INSULIN ASPART [NOVOLOG] 3 ML PEN SC ×4 (08:51→21:00)
[2019-04-15] MEDS: RIFAMPIN 300 MG CAP PO (08:52)
[2019-04-15] MEDS: METOPROLOL (XL) 100 MG TAB PO (09:00)
[2019-04-15] MEDS: LISINOPRIL 20 MG TAB PO (09:00)
[2019-04-15] MEDS: NIFEdipine (XL) 60 MG TAB PO ×2 (09:00→21:25)
[2019-04-15] MEDS: MINOXIDIL 2.5 MG TAB PO ×2 (09:00→21:25)
[2019-04-15] MEDS: HYDROCODONE/APAP (10/325) TAB PO ×2 (09:06→21:33)
[2019-04-15 14:00] LABS: ADD MAN DIFF? NO
[2019-04-15 14:01] LABS: BASOPHILS % 0.2 % (0.0-2.0); EOSINOPHILS # 0.3 10^3/ul (0.0-0.5); HEMATOCRIT 26.4 % (37.0-47.0); HEMOGLOBIN 8.2 g/dl (12.0-16.0); LYMPHOCYTES # 1.6 10^3/ul (0.8-2.9); LYMPHOCYTES % 11.1 % (15.0-51.0); MEAN CORPUSCULAR HEMOGLOBIN 30.8 pg (29.0-33.0); MEAN CORPUSCULAR HGB CONC 31.1 g/dl (32.0-37.0); MEAN CORPUSCULAR VOLUME 99.2 fl (82.0-101.0); MEAN PLATELET VOLUME 8.6 fl (7.4-10.4); MONOCYTE # 0.9 10^3/ul (0.3-0.9); MONOCYTES % 6.1 % (0.0-11.0); NEUTROPHIL # 11.4 10^3/ul (1.6-7.5); NEUTROPHILS % 79.6 % (39.0-77.0); PLATELET COUNT 369 10^3/UL (140-415); RED BLOOD COUNT 2.66 10^6/ul (4.20-5.40); RED CELL DISTRIBUTION WIDTH 14.6 % (11.5-14.5)
[2019-04-15 14:01] LABS: WHITE BLOOD COUNT 14.4 10^3/ul (4.8-10.8)
[2019-04-15 14:22] LABS: ANION GAP 7 (5-13); BLOOD UREA NITROGEN 21 mg/dl (7-20); CARBON DIOXIDE 27 mmol/L (21-31); CHLORIDE 98 mmol/L (97-110); CREATININE 3.65 mg/dl (0.44-1.00); Estimated GFR 13 mL/min (>60); GLUCOSE 108 mg/dl (70-220); POTASSIUM 3.8 mmol/L (3.5-5.1); SODIUM 132 mmol/L (135-144)
[2019-04-15] MEDS: HEPARIN 1000 UNITS/ML 10 ML INJ CATHETER (18:46)
[2019-04-15] MEDS: SENNA/DOCUSATE NA (8.6MG/50MG) TAB PO (21:24)
[2019-04-15] MEDS: ATORVASTATIN 80 MG TAB PO (21:24)
[2019-04-15] MEDS: ESCITALOPRAM 10 MG TAB PO (21:25)
[2019-04-15] MEDS: LATANOPROST 0.005% 2.5 ML OPH BOTH EYES (21:25)
[2019-04-16] MEDS: ACCU-CHEK XX ×2 (02:00)
[2019-04-16] MEDS: PANTOPRAZOLE (EC) 40 MG TAB PO (05:53)
[2019-04-16 06:10] LABS: ADD MAN DIFF? NO
[2019-04-16 06:18] LABS: BASOPHILS % 0.3 % (0.0-2.0); EOSINOPHILS # 0.2 10^3/ul (0.0-0.5); EOSINOPHILS % 1.9 % (0.0-7.0); HEMATOCRIT 26.4 % (37.0-47.0); LYMPHOCYTES # 1.4 10^3/ul (0.8-2.9); LYMPHOCYTES % 12.8 % (15.0-51.0); MEAN CORPUSCULAR HEMOGLOBIN 30.7 pg (29.0-33.0); MEAN CORPUSCULAR HGB CONC 30.3 g/dl (32.0-37.0); MEAN CORPUSCULAR VOLUME 101.1 fl (82.0-101.0); MEAN PLATELET VOLUME 8.5 fl (7.4-10.4); MONOCYTE # 1.1 10^3/ul (0.3-0.9); MONOCYTES % 9.9 % (0.0-11.0); NEUTROPHILS % 74.1 % (39.0-77.0); PLATELET COUNT 347 10^3/UL (140-415); RED BLOOD COUNT 2.61 10^6/ul (4.20-5.40); RED CELL DISTRIBUTION WIDTH 14.4 % (11.5-14.5)
[2019-04-16 06:18] LABS: WHITE BLOOD COUNT 10.7 10^3/ul (4.8-10.8)
[2019-04-16 06:49] LABS: ANION GAP 4 (5-13); BLOOD UREA NITROGEN 11 mg/dl (7-20); CARBON DIOXIDE 31 mmol/L (21-31); CHLORIDE 99 mmol/L (97-110); CREATININE 2.43 mg/dl (0.44-1.00); Estimated GFR 21 mL/min (>60); GLUCOSE 128 mg/dl (70-220); POTASSIUM 3.9 mmol/L (3.5-5.1); SODIUM 134 mmol/L (135-144)
[2019-04-16] MEDS: INSULIN ASPART [NOVOLOG] 3 ML PEN SC ×4 (08:00→21:00)
[2019-04-16] MEDS: morphine 2 MG INJ IV (08:44)
[2019-04-16] MEDS: hydrALAzine 20 MG INJ IV (08:45)
[2019-04-16] MEDS: DORZOLAMIDE/TIMOLOL/PF 0.2 ML DROPERETTE BOTH EYES ×2 (08:49→20:58)
[2019-04-16] MEDS: RIFAMPIN 300 MG CAP PO (08:49)
[2019-04-16] MEDS: LEVETIRACETAM 500 MG TAB PO ×2 (08:50→20:58)
[2019-04-16] MEDS: LISINOPRIL 20 MG TAB PO ×2 (08:50→20:56)
[2019-04-16] MEDS: LACTOBACILLUS RHAMNOSUS CAP PO ×2 (08:50→20:57)
[2019-04-16] MEDS: BRIMONIDINE 0.2% 5 ML BTL BOTH EYES ×3 (08:52→20:58)
[2019-04-16] MEDS: HEPARIN 5,000 UNIT/1 ML VIAL SC ×2 (08:54→21:00)
[2019-04-16] MEDS: NIFEdipine (XL) 60 MG TAB PO ×2 (10:25→20:57)
[2019-04-16] MEDS: METOPROLOL (XL) 100 MG TAB PO (11:59)
[2019-04-16] MEDS: DOXAZOSIN 1 MG TAB PO (12:00)
[2019-04-16] MEDS: SENNA/DOCUSATE NA (8.6MG/50MG) TAB PO (20:56)
[2019-04-16] MEDS: ESCITALOPRAM 10 MG TAB PO (20:57)
[2019-04-16] MEDS: DOXAZOSIN 2 MG TAB PO (20:57)
[2019-04-16] MEDS: LATANOPROST 0.005% 2.5 ML OPH BOTH EYES (20:58)
[2019-04-16] MEDS: ATORVASTATIN 80 MG TAB PO (20:58)
[2019-04-17] MEDS: ACCU-CHEK XX ×2 (02:00)
[2019-04-17] MEDS: VANCOMYCIN 1 GM 250 ML IVPB (04:14)
[2019-04-17 05:13] LABS: ADD MAN DIFF? NO
[2019-04-17 05:21] LABS: WHITE BLOOD COUNT 10.8 10^3/ul (4.8-10.8)
[2019-04-17 05:21] LABS: BASOPHILS % 0.4 % (0.0-2.0); EOSINOPHILS # 0.2 10^3/ul (0.0-0.5); EOSINOPHILS % 1.5 % (0.0-7.0); HEMATOCRIT 22.9 % (37.0-47.0); HEMOGLOBIN 7.2 g/dl (12.0-16.0); LYMPHOCYTES # 1.3 10^3/ul (0.8-2.9); LYMPHOCYTES % 11.5 % (15.0-51.0); MEAN CORPUSCULAR HEMOGLOBIN 31.2 pg (29.0-33.0); MEAN CORPUSCULAR HGB CONC 31.4 g/dl (32.0-37.0); MEAN CORPUSCULAR VOLUME 99.1 fl (82.0-101.0); MEAN PLATELET VOLUME 8.5 fl (7.4-10.4); MONOCYTE # 1.1 10^3/ul (0.3-0.9); MONOCYTES % 10.4 % (0.0-11.0); NEUTROPHIL # 8.2 10^3/ul (1.6-7.5); NEUTROPHILS % 75.3 % (39.0-77.0); PLATELET COUNT 282 10^3/UL (140-415); RED BLOOD COUNT 2.31 10^6/ul (4.20-5.40)
[2019-04-17] MEDS: PANTOPRAZOLE (EC) 40 MG TAB PO (05:22)
[2019-04-17 05:57] LABS: ALANINE AMINOTRANSFERASE 21 IU/L (13-69); ALBUMIN 2.2 g/dl (3.3-4.9); ALKALINE PHOSPHATASE 139 IU/L (42-121); ANION GAP 4 (5-13); ASPARTATE AMINO TRANSFERASE 34 IU/L (15-46); BILIRUBIN,INDIRECT 0.1 mg/dl (0-1.1); BILIRUBIN,TOTAL 0.1 mg/dl (0.2-1.3); BLOOD UREA NITROGEN 17 mg/dl (7-20); CALCIUM 7.6 mg/dl (8.4-10.2); CARBON DIOXIDE 29 mmol/L (21-31); CHLORIDE 98 mmol/L (97-110); CREATININE 3.29 mg/dl (0.44-1.00); Estimated GFR 15 mL/min (>60); GLUCOSE 184 mg/dl (70-220); POTASSIUM 3.7 mmol/L (3.5-5.1); SODIUM 131 mmol/L (135-144); TOTAL PROTEIN 5.3 g/dl (6.1-8.1)
[2019-04-17 06:21] LABS: ERYTHROCYTE SEDIMENTATION RATE 133 mm/Hr (0-20)
[2019-04-17] MEDS: INSULIN ASPART [NOVOLOG] 3 ML PEN SC ×4 (08:08→20:30)
[2019-04-17] MEDS: RIFAMPIN 300 MG CAP PO (08:09)
[2019-04-17] MEDS: LACTOBACILLUS RHAMNOSUS CAP PO ×2 (08:09→20:28)
[2019-04-17] MEDS: BRIMONIDINE 0.2% 5 ML BTL BOTH EYES ×3 (08:09→20:27)
[2019-04-17] MEDS: DORZOLAMIDE/TIMOLOL/PF 0.2 ML DROPERETTE BOTH EYES ×2 (08:09→20:29)
[2019-04-17] MEDS: LEVETIRACETAM 500 MG TAB PO ×2 (08:09→20:29)
[2019-04-17] MEDS: HEPARIN 5,000 UNIT/1 ML VIAL SC ×2 (08:10→20:31)
[2019-04-17] MEDS: MINOXIDIL 2.5 MG TAB PO (08:10)
[2019-04-17] MEDS: LISINOPRIL 20 MG TAB PO ×2 (08:11→20:28)
[2019-04-17] MEDS: NIFEdipine (XL) 60 MG TAB PO ×2 (08:11→20:28)
[2019-04-17] MEDS: METOPROLOL (XL) 100 MG TAB PO (08:11)
[2019-04-17] MEDS: morphine 2 MG INJ IV ×2 (09:02→20:26)
[2019-04-17] MEDS: SOD CHLORIDE 0.9% 250 ML IV* (11:20)
[2019-04-17] MEDS: CELECOXIB 100 MG CAP PO ×2 (13:01→20:28)
[2019-04-17 15:16] LABS: IMMEDIATE SPIN CROSSMATCH 1 1
[2019-04-17] MEDS: HEPARIN 1000 UNITS/ML 10 ML INJ CATHETER (17:10)
[2019-04-17] MEDS: LATANOPROST 0.005% 2.5 ML OPH BOTH EYES (20:27)
[2019-04-17] MEDS: ESCITALOPRAM 10 MG TAB PO (20:28)
[2019-04-17] MEDS: SENNA/DOCUSATE NA (8.6MG/50MG) TAB PO (20:28)
[2019-04-17] MEDS: ATORVASTATIN 80 MG TAB PO (20:29)
[2019-04-17] MEDS: DOXAZOSIN 2 MG TAB PO (20:29)
[2019-04-18] MEDS: ACCU-CHEK XX ×2 (02:44)
[2019-04-18 05:32] LABS: ADD MAN DIFF? NO
[2019-04-18] MEDS: PANTOPRAZOLE (EC) 40 MG TAB PO (05:34)
[2019-04-18 05:52] LABS: BASOPHILS % 0.4 % (0.0-2.0); EOSINOPHILS # 0.2 10^3/ul (0.0-0.5); EOSINOPHILS % 1.8 % (0.0-7.0); HEMATOCRIT 27.4 % (37.0-47.0); HEMOGLOBIN 8.8 g/dl (12.0-16.0); LYMPHOCYTES # 1.1 10^3/ul (0.8-2.9); MEAN CORPUSCULAR HEMOGLOBIN 30.6 pg (29.0-33.0); MEAN CORPUSCULAR HGB CONC 32.1 g/dl (32.0-37.0); MEAN CORPUSCULAR VOLUME 95.1 fl (82.0-101.0); MEAN PLATELET VOLUME 8.6 fl (7.4-10.4); MONOCYTE # 1.1 10^3/ul (0.3-0.9); MONOCYTES % 12.5 % (0.0-11.0); NEUTROPHIL # 6.6 10^3/ul (1.6-7.5); NEUTROPHILS % 72.7 % (39.0-77.0); PLATELET COUNT 267 10^3/UL (140-415); RED BLOOD COUNT 2.88 10^6/ul (4.20-5.40); RED CELL DISTRIBUTION WIDTH 15.3 % (11.5-14.5)
[2019-04-18 06:08] LABS: ANION GAP 7 (5-13); BLOOD UREA NITROGEN 9 mg/dl (7-20); CALCIUM 7.8 mg/dl (8.4-10.2); CARBON DIOXIDE 30 mmol/L (21-31); CHLORIDE 102 mmol/L (97-110); CREATININE 2.29 mg/dl (0.44-1.00); Estimated GFR 23 mL/min (>60); GLUCOSE 135 mg/dl (70-220); SODIUM 139 mmol/L (135-144)
[2019-04-18] MEDS: INSULIN ASPART [NOVOLOG] 3 ML PEN SC ×4 (08:00→20:38)
[2019-04-18] MEDS: LIDOCAINE 1% (MDV) 20 ML INJ (08:43)
[2019-04-18] MEDS: DORZOLAMIDE/TIMOLOL/PF 0.2 ML DROPERETTE BOTH EYES ×2 (10:20→20:33)
[2019-04-18] MEDS: BRIMONIDINE 0.2% 5 ML BTL BOTH EYES ×3 (10:20→20:33)
[2019-04-18] MEDS: LACTOBACILLUS RHAMNOSUS CAP PO ×2 (10:23→20:37)
[2019-04-18] MEDS: LEVETIRACETAM 500 MG TAB PO ×2 (10:23→20:33)
[2019-04-18] MEDS: CELECOXIB 100 MG CAP PO ×2 (10:23→20:34)
[2019-04-18] MEDS: MINOXIDIL 2.5 MG TAB PO ×2 (10:23→20:36)
[2019-04-18] MEDS: NIFEdipine (XL) 60 MG TAB PO ×2 (10:24→20:36)
[2019-04-18] MEDS: RIFAMPIN 300 MG CAP PO (10:24)
[2019-04-18] MEDS: METOPROLOL (XL) 100 MG TAB PO (10:25)
[2019-04-18] MEDS: LISINOPRIL 20 MG TAB PO ×2 (10:25→20:37)
[2019-04-18] MEDS: HEPARIN 5,000 UNIT/1 ML VIAL SC ×2 (10:26→20:38)
[2019-04-18] MEDS: morphine 2 MG INJ IV (10:34)
[2019-04-18] MEDS ORDERED: LIDOCAINE 1% (MPF) 5 ML VIAL SC (11:00)
[2019-04-18] MEDS: HYDROCODONE/APAP (10/325) TAB PO (13:21)
[2019-04-18] MEDS: LATANOPROST 0.005% 2.5 ML OPH BOTH EYES (20:33)
[2019-04-18] MEDS: SENNA/DOCUSATE NA (8.6MG/50MG) TAB PO (20:34)
[2019-04-18] MEDS: ESCITALOPRAM 10 MG TAB PO (20:36)
[2019-04-18] MEDS: DOXAZOSIN 2 MG TAB PO (20:36)
[2019-04-18] MEDS: ATORVASTATIN 80 MG TAB PO (20:36)
[2019-04-19] MEDS: ACCU-CHEK XX ×4 (02:00→21:39)
[2019-04-19] MEDS: PANTOPRAZOLE (EC) 40 MG TAB PO (05:55)
[2019-04-19] MEDS: INSULIN ASPART [NOVOLOG] 3 ML PEN SC ×4 (08:00→21:00)
[2019-04-19] MEDS: LEVETIRACETAM 500 MG TAB PO ×2 (09:29→21:19)
[2019-04-19] MEDS: RIFAMPIN 300 MG CAP PO (09:29)
[2019-04-19] MEDS: METOPROLOL (XL) 100 MG TAB PO (09:30)
[2019-04-19] MEDS: DORZOLAMIDE/TIMOLOL/PF 0.2 ML DROPERETTE BOTH EYES ×2 (09:31→21:38)
[2019-04-19] MEDS: MINOXIDIL 2.5 MG TAB PO ×2 (09:31→21:19)
[2019-04-19] MEDS: NIFEdipine (XL) 60 MG TAB PO ×2 (09:31→21:20)
[2019-04-19] MEDS: LISINOPRIL 20 MG TAB PO ×2 (09:31→21:20)
[2019-04-19] MEDS: LACTOBACILLUS RHAMNOSUS CAP PO ×2 (09:31→21:20)
[2019-04-19] MEDS: HEPARIN 5,000 UNIT/1 ML VIAL SC ×2 (09:32→21:25)
[2019-04-19] MEDS: BRIMONIDINE 0.2% 5 ML BTL BOTH EYES ×3 (12:41→21:19)
[2019-04-19] MEDS: morphine 2 MG INJ IV ×2 (12:43→21:44)
[2019-04-19] MEDS: HEPARIN 1000 UNITS/ML 10 ML INJ CATHETER (18:34)
[2019-04-19] MEDS: HYDROCODONE/APAP (10/325) TAB PO (19:42)
[2019-04-19] MEDS: LATANOPROST 0.005% 2.5 ML OPH BOTH EYES (21:19)
[2019-04-19] MEDS: ESCITALOPRAM 10 MG TAB PO (21:20)
[2019-04-19] MEDS: SENNA/DOCUSATE NA (8.6MG/50MG) TAB PO (21:20)
[2019-04-19] MEDS: DOXAZOSIN 2 MG TAB PO (21:21)
[2019-04-19] MEDS: ATORVASTATIN 80 MG TAB PO (21:21)
[2019-04-20] MEDS: HYDROCODONE/APAP (10/325) TAB PO ×3 (02:38→21:24)
[2019-04-20] MEDS: morphine 2 MG INJ IV ×2 (03:19→15:13)
[2019-04-20] MEDS: PANTOPRAZOLE (EC) 40 MG TAB PO (05:10)
[2019-04-20] MEDS: INSULIN ASPART [NOVOLOG] 3 ML PEN SC ×4 (07:56→21:00)
[2019-04-20] MEDS: LISINOPRIL 20 MG TAB PO ×2 (09:10→21:24)
[2019-04-20] MEDS: LEVETIRACETAM 500 MG TAB PO ×2 (09:11→21:27)
[2019-04-20] MEDS: RIFAMPIN 300 MG CAP PO (09:11)
[2019-04-20] MEDS: HEPARIN 5,000 UNIT/1 ML VIAL SC ×2 (09:11→21:25)
[2019-04-20] MEDS: MINOXIDIL 2.5 MG TAB PO ×2 (09:12→21:24)
[2019-04-20] MEDS: NIFEdipine (XL) 60 MG TAB PO ×2 (09:12→21:23)
[2019-04-20] MEDS: METOPROLOL (XL) 100 MG TAB PO (09:12)
[2019-04-20] MEDS: EPOETIN ALFA-EPBX (ESRD) 10,000 UNIT/ML VIAL SC (09:14)
[2019-04-20] MEDS: LACTOBACILLUS RHAMNOSUS CAP PO ×2 (09:15→21:24)
[2019-04-20] MEDS: DORZOLAMIDE/TIMOLOL/PF 0.2 ML DROPERETTE BOTH EYES ×2 (09:16→21:24)
[2019-04-20] MEDS: BRIMONIDINE 0.2% 5 ML BTL BOTH EYES ×3 (09:16→21:26)
[2019-04-20] MEDS: SENNA/DOCUSATE NA (8.6MG/50MG) TAB PO (21:22)
[2019-04-20] MEDS: ESCITALOPRAM 10 MG TAB PO (21:22)
[2019-04-20] MEDS: LATANOPROST 0.005% 2.5 ML OPH BOTH EYES (21:23)
[2019-04-20] MEDS: ATORVASTATIN 80 MG TAB PO (21:24)
[2019-04-20] MEDS: DOXAZOSIN 2 MG TAB PO (21:24)
[2019-04-21] MEDS: ACCU-CHEK XX ×2 (02:00)
[2019-04-21 02:31] LABS: VANCOMYCIN,TROUGH 9.8 ug/ml (10.0-20.0)
[2019-04-21] MEDS: VANCOMYCIN HCL 1.25 GM in SOD CHLORIDE 0.9% 250 ML IVPB (03:48)
[2019-04-21] MEDS: PANTOPRAZOLE (EC) 40 MG TAB PO (05:10)
[2019-04-21] MEDS: INSULIN ASPART [NOVOLOG] 3 ML PEN SC ×4 (08:00→21:00)
[2019-04-21] MEDS: LACTOBACILLUS RHAMNOSUS CAP PO ×2 (08:53→20:52)
[2019-04-21] MEDS: RIFAMPIN 300 MG CAP PO (08:54)
[2019-04-21] MEDS: DORZOLAMIDE/TIMOLOL/PF 0.2 ML DROPERETTE BOTH EYES ×2 (08:54→20:55)
[2019-04-21] MEDS: LEVETIRACETAM 500 MG TAB PO ×2 (08:54→20:53)
[2019-04-21] MEDS: MINOXIDIL 2.5 MG TAB PO ×2 (08:54→20:53)
[2019-04-21] MEDS: HEPARIN 5,000 UNIT/1 ML VIAL SC (08:55)
[2019-04-21] MEDS: LISINOPRIL 20 MG TAB PO ×2 (09:00→21:00)
[2019-04-21] MEDS: METOPROLOL (XL) 100 MG TAB PO (09:00)
[2019-04-21] MEDS: NIFEdipine (XL) 60 MG TAB PO ×2 (09:00→20:54)
[2019-04-21] MEDS: HYDROCODONE/APAP (10/325) TAB PO ×3 (09:04→20:53)
[2019-04-21] MEDS: BRIMONIDINE 0.2% 5 ML BTL BOTH EYES ×3 (09:06→20:55)
[2019-04-21] MEDS: morphine 2 MG INJ IV (12:30)
[2019-04-21 12:46] LABS: ADD MAN DIFF? NO
[2019-04-21 12:49] LABS: WHITE BLOOD COUNT 10.6 10^3/ul (4.8-10.8)
[2019-04-21 12:49] LABS: BASOPHILS % 0.4 % (0.0-2.0); EOSINOPHILS # 0.1 10^3/ul (0.0-0.5); EOSINOPHILS % 1.1 % (0.0-7.0); HEMATOCRIT 28.6 % (37.0-47.0); HEMOGLOBIN 9.3 g/dl (12.0-16.0); LYMPHOCYTES # 1.1 10^3/ul (0.8-2.9); LYMPHOCYTES % 10.1 % (15.0-51.0); MEAN CORPUSCULAR HEMOGLOBIN 30.9 pg (29.0-33.0); MEAN CORPUSCULAR HGB CONC 32.5 g/dl (32.0-37.0); MEAN PLATELET VOLUME 8.2 fl (7.4-10.4); MONOCYTE # 0.8 10^3/ul (0.3-0.9); MONOCYTES % 7.2 % (0.0-11.0); NEUTROPHIL # 8.6 10^3/ul (1.6-7.5); NEUTROPHILS % 80.4 % (39.0-77.0); PLATELET COUNT 223 10^3/UL (140-415); RED BLOOD COUNT 3.01 10^6/ul (4.20-5.40); RED CELL DISTRIBUTION WIDTH 14.1 % (11.5-14.5)
[2019-04-21 13:12] LABS: OCCULT BLOOD STOOL NEGATIVE (NEGATIVE)
[2019-04-21] MEDS: HEPARIN 1000 UNITS/ML 10 ML INJ CATHETER (13:12)
[2019-04-21] MEDS: EPOETIN ALFA-EPBX (ESRD) 10,000 UNIT/ML VIAL SC (17:06)
[2019-04-21] MEDS: ESCITALOPRAM 10 MG TAB PO (20:50)
[2019-04-21] MEDS: SENNA/DOCUSATE NA (8.6MG/50MG) TAB PO (20:52)
[2019-04-21] MEDS: DOXAZOSIN 2 MG TAB PO (20:54)
[2019-04-21] MEDS: ATORVASTATIN 80 MG TAB PO (20:54)
[2019-04-21] MEDS: LATANOPROST 0.005% 2.5 ML OPH BOTH EYES (20:55)
[2019-04-22] MEDS: ACCU-CHEK XX ×2 (02:00)
[2019-04-22] MEDS: HYDROCODONE/APAP (10/325) TAB PO ×4 (02:09→19:38)
[2019-04-22 05:43] LABS: ADD MAN DIFF? NO
[2019-04-22 05:44] LABS: WHITE BLOOD COUNT 8.2 10^3/ul (4.8-10.8)
[2019-04-22 05:44] LABS: BASOPHIL # 0.1 10^3/ul (0.0-0.1); BASOPHILS % 0.6 % (0.0-2.0); EOSINOPHILS # 0.1 10^3/ul (0.0-0.5); EOSINOPHILS % 1.2 % (0.0-7.0); HEMOGLOBIN 9.1 g/dl (12.0-16.0); LYMPHOCYTES # 1.2 10^3/ul (0.8-2.9); MEAN CORPUSCULAR HEMOGLOBIN 31.2 pg (29.0-33.0); MEAN CORPUSCULAR HGB CONC 32.5 g/dl (32.0-37.0); MEAN CORPUSCULAR VOLUME 95.9 fl (82.0-101.0); MEAN PLATELET VOLUME 8.4 fl (7.4-10.4); MONOCYTES % 11.5 % (0.0-11.0); NEUTROPHIL # 5.8 10^3/ul (1.6-7.5); NEUTROPHILS % 70.7 % (39.0-77.0); PLATELET COUNT 224 10^3/UL (140-415); RED BLOOD COUNT 2.92 10^6/ul (4.20-5.40); RED CELL DISTRIBUTION WIDTH 14.2 % (11.5-14.5)
[2019-04-22 06:13] LABS: ANION GAP 8 (5-13); BLOOD UREA NITROGEN 9 mg/dl (7-20); CALCIUM 8.3 mg/dl (8.4-10.2); CARBON DIOXIDE 27 mmol/L (21-31); CHLORIDE 100 mmol/L (97-110); CREATININE 2.35 mg/dl (0.44-1.00); Estimated GFR 22 mL/min (>60); GLUCOSE 150 mg/dl (70-220); POTASSIUM 3.6 mmol/L (3.5-5.1); SODIUM 135 mmol/L (135-144)
[2019-04-22] MEDS: PANTOPRAZOLE (EC) 40 MG TAB PO (06:36)
[2019-04-22] MEDS: INSULIN ASPART [NOVOLOG] 3 ML PEN SC ×4 (08:35→21:00)
[2019-04-22] MEDS: BRIMONIDINE 0.2% 5 ML BTL BOTH EYES ×3 (08:54→21:15)
[2019-04-22] MEDS: DORZOLAMIDE/TIMOLOL/PF 0.2 ML DROPERETTE BOTH EYES ×2 (08:54→21:14)
[2019-04-22] MEDS: LISINOPRIL 20 MG TAB PO ×2 (08:55→21:13)
[2019-04-22] MEDS: LACTOBACILLUS RHAMNOSUS CAP PO ×2 (08:55→21:13)
[2019-04-22] MEDS: MINOXIDIL 2.5 MG TAB PO ×2 (08:55→21:14)
[2019-04-22] MEDS: METOPROLOL (XL) 100 MG TAB PO (08:56)
[2019-04-22] MEDS: RIFAMPIN 300 MG CAP PO (08:56)
[2019-04-22] MEDS: NIFEdipine (XL) 60 MG TAB PO ×2 (08:56→21:13)
[2019-04-22] MEDS: LEVETIRACETAM 500 MG TAB PO ×2 (08:56→21:12)
[2019-04-22] MEDS: morphine 2 MG INJ IV ×2 (09:17→21:19)
[2019-04-22] MEDS: ATORVASTATIN 80 MG TAB PO (21:13)
[2019-04-22] MEDS: SENNA/DOCUSATE NA (8.6MG/50MG) TAB PO (21:13)
[2019-04-22] MEDS: ESCITALOPRAM 10 MG TAB PO (21:14)
[2019-04-22] MEDS: DOXAZOSIN 2 MG TAB PO (21:14)
[2019-04-22] MEDS: LATANOPROST 0.005% 2.5 ML OPH BOTH EYES (21:15)
[2019-04-23] MEDS: ACCU-CHEK XX ×2 (02:00)
[2019-04-23] MEDS: PANTOPRAZOLE (EC) 40 MG TAB PO (05:39)
[2019-04-23] MEDS: HYDROCODONE/APAP (10/325) TAB PO ×3 (05:40→20:41)
[2019-04-23] MEDS: INSULIN ASPART [NOVOLOG] 3 ML PEN SC ×4 (08:16→20:43)
[2019-04-23] MEDS: DORZOLAMIDE/TIMOLOL/PF 0.2 ML DROPERETTE BOTH EYES ×2 (09:37→20:40)
[2019-04-23] MEDS: BRIMONIDINE 0.2% 5 ML BTL BOTH EYES ×3 (09:37→20:40)
[2019-04-23] MEDS: RIFAMPIN 300 MG CAP PO (09:37)
[2019-04-23] MEDS: LEVETIRACETAM 500 MG TAB PO ×2 (09:37→20:40)
[2019-04-23] MEDS: LISINOPRIL 20 MG TAB PO ×2 (09:37→20:41)
[2019-04-23] MEDS: METOPROLOL (XL) 100 MG TAB PO (09:38)
[2019-04-23] MEDS: LACTOBACILLUS RHAMNOSUS CAP PO ×2 (09:44→20:41)
[2019-04-23] MEDS: MINOXIDIL 2.5 MG TAB PO ×2 (09:45→20:42)
[2019-04-23] MEDS: NIFEdipine (XL) 60 MG TAB PO ×2 (09:45→20:42)
[2019-04-23] MEDS: LATANOPROST 0.005% 2.5 ML OPH BOTH EYES (20:40)
[2019-04-23] MEDS: DOXAZOSIN 2 MG TAB PO (20:40)
[2019-04-23] MEDS: ESCITALOPRAM 10 MG TAB PO (20:42)
[2019-04-23] MEDS: SENNA/DOCUSATE NA (8.6MG/50MG) TAB PO (20:43)
[2019-04-23] MEDS: ATORVASTATIN 80 MG TAB PO (20:43)
[2019-04-23 22:33] LABS: C-REACTIVE PROTEIN 5.2 mg/dl (0.0-0.9)
[2019-04-23 23:16] LABS: ERYTHROCYTE SEDIMENTATION RATE 95 mm/Hr (0-20)
[2019-04-24] MEDS: ACCU-CHEK XX ×2 (02:00→03:08)
[2019-04-24] MEDS: PANTOPRAZOLE (EC) 40 MG TAB PO (05:17)
[2019-04-24] MEDS: HYDROCODONE/APAP (10/325) TAB PO ×3 (05:18→20:28)
[2019-04-24 06:19] LABS: ADD MAN DIFF? NO
[2019-04-24 06:28] LABS: WHITE BLOOD COUNT 9.4 10^3/ul (4.8-10.8)
[2019-04-24 06:28] LABS: BASOPHIL # 0.1 10^3/ul (0.0-0.1); BASOPHILS % 0.6 % (0.0-2.0); EOSINOPHILS # 0.2 10^3/ul (0.0-0.5); HEMATOCRIT 28.2 % (37.0-47.0); HEMOGLOBIN 9.2 g/dl (12.0-16.0); LYMPHOCYTES # 1.6 10^3/ul (0.8-2.9); LYMPHOCYTES % 17.1 % (15.0-51.0); MEAN CORPUSCULAR HEMOGLOBIN 30.8 pg (29.0-33.0); MEAN CORPUSCULAR HGB CONC 32.6 g/dl (32.0-37.0); MEAN CORPUSCULAR VOLUME 94.3 fl (82.0-101.0); MEAN PLATELET VOLUME 8.4 fl (7.4-10.4); MONOCYTE # 0.9 10^3/ul (0.3-0.9); MONOCYTES % 9.1 % (0.0-11.0); NEUTROPHIL # 6.6 10^3/ul (1.6-7.5); NEUTROPHILS % 70.1 % (39.0-77.0); PLATELET COUNT 221 10^3/UL (140-415); RED BLOOD COUNT 2.99 10^6/ul (4.20-5.40); RED CELL DISTRIBUTION WIDTH 14.1 % (11.5-14.5)
[2019-04-24 07:02] LABS: ALANINE AMINOTRANSFERASE 17 IU/L (13-69); ALBUMIN 2.5 g/dl (3.3-4.9); ALBUMIN/GLOBULIN RATIO 0.71; ALKALINE PHOSPHATASE 207 IU/L (42-121); ANION GAP 9 (5-13); ASPARTATE AMINO TRANSFERASE 24 IU/L (15-46); BILIRUBIN,INDIRECT 0.2 mg/dl (0-1.1); BILIRUBIN,TOTAL 0.2 mg/dl (0.2-1.3); BLOOD UREA NITROGEN 23 mg/dl (7-20); CALCIUM 7.9 mg/dl (8.4-10.2); CARBON DIOXIDE 25 mmol/L (21-31); CHLORIDE 98 mmol/L (97-110); CREATININE 3.83 mg/dl (0.44-1.00); Estimated GFR 13 mL/min (>60); GLUCOSE 166 mg/dl (70-220); MAGNESIUM 1.9 mg/dl (1.7-2.5); POTASSIUM 3.7 mmol/L (3.5-5.1); SODIUM 132 mmol/L (135-144)
[2019-04-24] MEDS: BRIMONIDINE 0.2% 5 ML BTL BOTH EYES ×3 (08:11→23:42)
[2019-04-24] MEDS: INSULIN ASPART [NOVOLOG] 3 ML PEN SC ×4 (08:11→21:00)
[2019-04-24] MEDS: DORZOLAMIDE/TIMOLOL/PF 0.2 ML DROPERETTE BOTH EYES ×2 (08:11→23:42)
[2019-04-24] MEDS: LISINOPRIL 20 MG TAB PO ×2 (09:00→23:44)
[2019-04-24] MEDS: MINOXIDIL 2.5 MG TAB PO ×2 (09:00→23:44)
[2019-04-24] MEDS: NIFEdipine (XL) 60 MG TAB PO ×2 (09:00→23:43)
[2019-04-24] MEDS: RIFAMPIN 300 MG CAP PO (09:00)
[2019-04-24] MEDS: METOPROLOL (XL) 100 MG TAB PO (09:00)
[2019-04-24] MEDS: LACTOBACILLUS RHAMNOSUS CAP PO ×2 (09:00→23:45)
[2019-04-24] MEDS: morphine 2 MG INJ IV ×4 (09:02→23:51)
[2019-04-24] MEDS: LEVETIRACETAM 500 MG TAB PO ×2 (09:04→23:45)
[2019-04-24] MEDS: HEPARIN 1000 UNITS/ML 10 ML INJ CATHETER (17:20)
[2019-04-24] MEDS: EPOETIN ALFA-EPBX (ESRD) 10,000 UNIT/ML VIAL SC (18:43)
[2019-04-24] MEDS: LATANOPROST 0.005% 2.5 ML OPH BOTH EYES (23:42)
[2019-04-24] MEDS: SENNA/DOCUSATE NA (8.6MG/50MG) TAB PO (23:43)
[2019-04-24] MEDS: DOXAZOSIN 2 MG TAB PO (23:45)
[2019-04-24] MEDS: ESCITALOPRAM 10 MG TAB PO (23:45)
[2019-04-24] MEDS: ATORVASTATIN 80 MG TAB PO (23:45)
[2019-04-25] MEDS: ACCU-CHEK XX ×2 (02:00)
[2019-04-25] MEDS: VANCOMYCIN HCL 1.25 GM in SOD CHLORIDE 0.9% 250 ML IVPB (04:09)
[2019-04-25] MEDS: PANTOPRAZOLE (EC) 40 MG TAB PO (06:03)
[2019-04-25] MEDS: morphine 2 MG INJ IV ×3 (06:04→21:39)
[2019-04-25] MEDS: INSULIN ASPART [NOVOLOG] 3 ML PEN SC ×4 (08:00→21:00)
[2019-04-25] MEDS: LISINOPRIL 20 MG TAB PO ×2 (08:30→21:30)
[2019-04-25] MEDS: RIFAMPIN 300 MG CAP PO (08:30)
[2019-04-25] MEDS: BRIMONIDINE 0.2% 5 ML BTL BOTH EYES ×3 (08:30→21:29)
[2019-04-25] MEDS: DORZOLAMIDE/TIMOLOL/PF 0.2 ML DROPERETTE BOTH EYES ×2 (08:30→21:29)
[2019-04-25] MEDS: LEVETIRACETAM 500 MG TAB PO ×2 (08:30→21:30)
[2019-04-25] MEDS: LACTOBACILLUS RHAMNOSUS CAP PO ×2 (08:30→21:30)
[2019-04-25] MEDS: NIFEdipine (XL) 60 MG TAB PO ×2 (08:31→21:29)
[2019-04-25] MEDS: MINOXIDIL 2.5 MG TAB PO ×2 (08:32→21:31)
[2019-04-25] MEDS: METOPROLOL (XL) 100 MG TAB PO (08:32)
[2019-04-25] MEDS: HYDROCODONE/APAP (10/325) TAB PO (08:45)
[2019-04-25] MEDS: LATANOPROST 0.005% 2.5 ML OPH BOTH EYES (21:28)
[2019-04-25] MEDS: ESCITALOPRAM 10 MG TAB PO (21:29)
[2019-04-25] MEDS: SENNA/DOCUSATE NA (8.6MG/50MG) TAB PO (21:30)
[2019-04-25] MEDS: ATORVASTATIN 80 MG TAB PO (21:30)
[2019-04-25] MEDS: DOXAZOSIN 2 MG TAB PO (21:31)
[2019-04-26] MEDS: ACCU-CHEK XX ×2 (02:00)
[2019-04-26] MEDS: morphine 2 MG INJ IV ×3 (05:18→20:04)
[2019-04-26] MEDS: PANTOPRAZOLE (EC) 40 MG TAB PO (05:19)
[2019-04-26] MEDS: HYDROCODONE/APAP (10/325) TAB PO ×2 (06:23→11:16)
[2019-04-26 06:28] LABS: ADD MAN DIFF? NO
[2019-04-26 06:31] LABS: WHITE BLOOD COUNT 9.7 10^3/ul (4.8-10.8)
[2019-04-26 06:31] LABS: BASOPHIL # 0.1 10^3/ul (0.0-0.1); BASOPHILS % 0.9 % (0.0-2.0); EOSINOPHILS # 0.2 10^3/ul (0.0-0.5); HEMATOCRIT 27.2 % (37.0-47.0); HEMOGLOBIN 8.7 g/dl (12.0-16.0); LYMPHOCYTES # 1.5 10^3/ul (0.8-2.9); LYMPHOCYTES % 15.9 % (15.0-51.0); MEAN CORPUSCULAR HEMOGLOBIN 30.6 pg (29.0-33.0); MEAN CORPUSCULAR VOLUME 95.8 fl (82.0-101.0); MEAN PLATELET VOLUME 8.5 fl (7.4-10.4); MONOCYTES % 10.1 % (0.0-11.0); NEUTROPHIL # 6.8 10^3/ul (1.6-7.5); NEUTROPHILS % 70.3 % (39.0-77.0); PLATELET COUNT 208 10^3/UL (140-415); RED BLOOD COUNT 2.84 10^6/ul (4.20-5.40); RED CELL DISTRIBUTION WIDTH 14.4 % (11.5-14.5)
[2019-04-26 07:08] LABS: ANION GAP 9 (5-13); BLOOD UREA NITROGEN 16 mg/dl (7-20); CALCIUM 8.2 mg/dl (8.4-10.2); CARBON DIOXIDE 26 mmol/L (21-31); CHLORIDE 100 mmol/L (97-110); CREATININE 3.35 mg/dl (0.44-1.00); Estimated GFR 15 mL/min (>60); GLUCOSE 114 mg/dl (70-220); POTASSIUM 3.8 mmol/L (3.5-5.1); SODIUM 135 mmol/L (135-144)
[2019-04-26] MEDS: INSULIN ASPART [NOVOLOG] 3 ML PEN SC ×4 (08:00→20:14)
[2019-04-26] MEDS: METOPROLOL (XL) 100 MG TAB PO ×2 (09:00→14:40)
[2019-04-26] MEDS: LISINOPRIL 20 MG TAB PO ×3 (09:00→20:02)
[2019-04-26] MEDS: MINOXIDIL 2.5 MG TAB PO ×3 (09:00→20:03)
[2019-04-26] MEDS: NIFEdipine (XL) 60 MG TAB PO ×3 (09:00→20:03)
[2019-04-26] MEDS: BRIMONIDINE 0.2% 5 ML BTL BOTH EYES ×3 (09:23→20:03)
[2019-04-26] MEDS: LACTOBACILLUS RHAMNOSUS CAP PO ×2 (09:24→20:00)
[2019-04-26] MEDS: LEVETIRACETAM 500 MG TAB PO ×2 (09:24→20:00)
[2019-04-26] MEDS: RIFAMPIN 300 MG CAP PO (09:24)
[2019-04-26] MEDS: DORZOLAMIDE/TIMOLOL/PF 0.2 ML DROPERETTE BOTH EYES ×2 (09:26→20:01)
[2019-04-26] MEDS: HEPARIN 1000 UNITS/ML 10 ML INJ CATHETER (13:15)
[2019-04-26] MEDS: EPOETIN ALFA-EPBX (ESRD) 10,000 UNIT/ML VIAL SC (17:45)
[2019-04-26] MEDS: ESCITALOPRAM 10 MG TAB PO (20:00)
[2019-04-26] MEDS: SENNA/DOCUSATE NA (8.6MG/50MG) TAB PO (20:02)
[2019-04-26] MEDS: ATORVASTATIN 80 MG TAB PO (20:03)
[2019-04-26] MEDS: DOXAZOSIN 2 MG TAB PO (20:03)
== END 2019-04-26 20:30 | DRG 853 ==
LOC: E/R 19:26 → PP2 04-09 00:28
PROVIDERS: Hospitalist
PROC: 5A1D70Z Performance of Urinary Filtration, Intermittent, Less than 6 Hours Per Day (ICD-10-PCS; 2019-04-09)
PROC: 5A1D70Z Performance of Urinary Filtration, Intermittent, Less than 6 Hours Per Day (ICD-10-PCS; 2019-04-10)
PROC: 0K9N3ZX Drainage of Right Hip Muscle, Percutaneous Approach, Diagnostic (ICD-10-PCS; principal; 2019-04-12)
PROC: 5A1D70Z Performance of Urinary Filtration, Intermittent, Less than 6 Hours Per Day (ICD-10-PCS; 2019-04-12)
PROC: 5A1D70Z Performance of Urinary Filtration, Intermittent, Less than 6 Hours Per Day (ICD-10-PCS; 2019-04-15)
PROC: 30233N1 Transfusion of Nonautologous Red Blood Cells into Peripheral Vein, Percutaneous Approach (ICD-10-PCS; 2019-04-17)
PROC: 5A1D70Z Performance of Urinary Filtration, Intermittent, Less than 6 Hours Per Day (ICD-10-PCS; 2019-04-17)
PROC: 5A1D70Z Performance of Urinary Filtration, Intermittent, Less than 6 Hours Per Day (ICD-10-PCS; 2019-04-18)
PROC: 5A1D70Z Performance of Urinary Filtration, Intermittent, Less than 6 Hours Per Day (ICD-10-PCS; 2019-04-19)
PROC: 5A1D70Z Performance of Urinary Filtration, Intermittent, Less than 6 Hours Per Day (ICD-10-PCS; 2019-04-24)
PROC: 5A1D70Z Performance of Urinary Filtration, Intermittent, Less than 6 Hours Per Day (ICD-10-PCS; 2019-04-26)
DX: A41.9 Sepsis, unspecified organism (principal); N18.6 End stage renal disease; G06.1 Intraspinal abscess and granuloma; M46.26 Osteomyelitis of vertebra, lumbar region; E87.1 Hypo-osmolality and hyponatremia; I13.2 Hypertensive heart and chronic kidney disease with heart failure and with stage 5 chronic kidney disease, or end stage renal disease; I50.9 Heart failure, unspecified; E11.22 Type 2 diabetes mellitus with diabetic chronic kidney disease; M46.46 Discitis, unspecified, lumbar region; M48.061 Spinal stenosis, lumbar region without neurogenic claudication; H40.9 Unspecified glaucoma; Z99.2 Dependence on renal dialysis; D63.1 Anemia in chronic kidney disease; E78.5 Hyperlipidemia, unspecified; G40.909 Epilepsy, unspecified, not intractable, without status epilepticus; R62.7 Adult failure to thrive; E05.90 Thyrotoxicosis, unspecified without thyrotoxic crisis or storm; H54.8 Legal blindness, as defined in USA; B95.62 Methicillin resistant Staphylococcus aureus infection as the cause of diseases classified elsewhere; W19.XXXA Unspecified fall, initial encounter; Z68.32 Body mass index [BMI] 32.0-32.9, adult; Z79.4 Long term (current) use of insulin; Z98.51 Tubal ligation status; Z86.73 Personal history of transient ischemic attack (TIA), and cerebral infarction without residual deficits
CPT/HCPCS: 36415; 36430; 72100; 72131; 72146; 72148; 73510; 77012; 80048; 80053; 80061; 80202; 82270; 82962; 83036; 83540; 83605; 83735; 84100; 84436; 84439; 84443; 84479; 85025; 85610; 85651; 85730; 86140; 86850; 86900; 86901; 86920; 87040-91; 87070; 87075; 87081; 87340; 88104; 88305; 90935; 96374; 96375; 97110; 97163; 97166; 97530; 97535; 99285-25

== ENCOUNTER 2019-05-11 22:17 | Inpatient (IN) | payer OTHER ==
[2019-05-11 22:34] LABS: ADD MAN DIFF? NO
[2019-05-11 22:37] LABS: WHITE BLOOD COUNT 5.9 10^3/ul (4.8-10.8)
[2019-05-11 22:37] LABS: BASOPHIL # 0.1 10^3/ul (0.0-0.1); EOSINOPHILS # 0.1 10^3/ul (0.0-0.5); EOSINOPHILS % 1.7 % (0.0-7.0); HEMATOCRIT 34.4 % (37.0-47.0); HEMOGLOBIN 10.9 g/dl (12.0-16.0); LYMPHOCYTES # 1.4 10^3/ul (0.8-2.9); MEAN CORPUSCULAR HEMOGLOBIN 31.3 pg (29.0-33.0); MEAN CORPUSCULAR HGB CONC 31.7 g/dl (32.0-37.0); MEAN CORPUSCULAR VOLUME 98.9 fl (82.0-101.0); MEAN PLATELET VOLUME 8.1 fl (7.4-10.4); MONOCYTE # 0.7 10^3/ul (0.3-0.9); MONOCYTES % 12.4 % (0.0-11.0); NEUTROPHIL # 3.5 10^3/ul (1.6-7.5); NEUTROPHILS % 60.4 % (39.0-77.0); PLATELET COUNT 222 10^3/UL (140-415); RED BLOOD COUNT 3.48 10^6/ul (4.20-5.40); RED CELL DISTRIBUTION WIDTH 14.7 % (11.5-14.5)
[2019-05-11] MEDS: LIDOCAINE 5% PATCH TD (22:38)
[2019-05-11] MEDS: ONDANSETRON 4 MG INJ IV (22:40)
[2019-05-11] MEDS: HYDROmorphONE 0.5 MG/0.5 ML SYG IV ×2 (22:40→23:25)
[2019-05-11] MEDS: HYDROmorphONE 1 MG/ML SYG IV (23:23)
[2019-05-11 23:53] LABS: ERYTHROCYTE SEDIMENTATION RATE 38 mm/Hr (0-20)
[2019-05-12 00:23] LABS: ALANINE AMINOTRANSFERASE 14 IU/L (13-69); ALBUMIN 2.6 g/dl (3.3-4.9); ALBUMIN/GLOBULIN RATIO 0.68; ALKALINE PHOSPHATASE 184 IU/L (42-121); ANION GAP 6 (5-13); ASPARTATE AMINO TRANSFERASE 30 IU/L (15-46); BILIRUBIN,INDIRECT 0.2 mg/dl (0-1.1); BILIRUBIN,TOTAL 0.2 mg/dl (0.2-1.3); BLOOD UREA NITROGEN 12 mg/dl (7-20); CALCIUM 8.2 mg/dl (8.4-10.2); CARBON DIOXIDE 29 mmol/L (21-31); CHLORIDE 100 mmol/L (97-110); CREATININE 2.82 mg/dl (0.44-1.00); Estimated GFR 18 mL/min (>60); GLUCOSE 147 mg/dl (70-220); POTASSIUM 4.4 mmol/L (3.5-5.1); SODIUM 135 mmol/L (135-144); TOTAL PROTEIN 6.4 g/dl (6.1-8.1)
[2019-05-12 00:48] LABS: C-REACTIVE PROTEIN 2.3 mg/dl (0.0-0.9)
[2019-05-12] MEDS ORDERED: NACL 0.9% 3 ML SYG IV (01:30)
[2019-05-12] MEDS ORDERED: BISACODYL (EC) 5 MG TAB PO (01:30)
[2019-05-12] MEDS ORDERED: ACETAMINOPHEN 325 MG TAB PO ×2 (01:30)
[2019-05-12] MEDS ORDERED: VANCOMYCIN XX (01:30)
[2019-05-12] MEDS ORDERED: DOCUSATE SODIUM 100 MG CAP PO ×2 (01:30)
[2019-05-12] MEDS ORDERED: VANCOMYCIN IV PER PHARMACY XX (02:00)
[2019-05-12] MEDS: HEPARIN 5,000 UNIT/1 ML VIAL SC ×4 (02:01→21:59)
[2019-05-12] MEDS: HYDROmorphONE 0.5 MG/0.5 ML SYG IV ×3 (02:34→22:20)
[2019-05-12] MEDS: ONDANSETRON 4 MG INJ IV ×2 (03:25→09:31)
[2019-05-12] MEDS: VANCOMYCIN HCL 1.5 GM in SOD CHLORIDE 0.9% 250 ML IVPB (03:25)
[2019-05-12] MEDS: PANTOPRAZOLE (EC) 40 MG TAB PO (05:33)
[2019-05-12] MEDS: MINOXIDIL 2.5 MG TAB PO ×2 (09:00→21:53)
[2019-05-12] MEDS: LISINOPRIL 20 MG TAB PO ×2 (09:00→21:53)
[2019-05-12] MEDS: DORZOLAMIDE/TIMOLOL/PF 0.2 ML DROPERETTE BOTH EYES ×3 (09:00→21:50)
[2019-05-12] MEDS: LACTOBACILLUS RHAMNOSUS CAP PO ×2 (09:21→21:50)
[2019-05-12] MEDS: ASPIRIN (EC) 81 MG TAB PO (09:21)
[2019-05-12] MEDS: LEVETIRACETAM 500 MG TAB PO ×2 (09:21→21:50)
[2019-05-12] MEDS: NIFEdipine (XL) 60 MG TAB PO ×2 (09:22→21:52)
[2019-05-12] MEDS: METOPROLOL (XL) 100 MG TAB PO (09:22)
[2019-05-12] MEDS: LIDOCAINE 5% PATCH TD (09:23)
[2019-05-12 09:53] LABS: HEPATITIS B SURFACE ANTIGEN NEGATIVE (NEGATIVE)
[2019-05-12] MEDS: RIFAMPIN 300 MG CAP PO (10:40)
[2019-05-12] MEDS: CELECOXIB 100 MG CAP PO ×2 (10:40→21:52)
[2019-05-12] MEDS: BISACODYL 10 MG SUPP PR (10:40)
[2019-05-12] MEDS: BRIMONIDINE 0.2% 5 ML BTL BOTH EYES ×3 (10:41→21:49)
[2019-05-12] MEDS: traMADol 50 MG TAB PO ×2 (10:52→21:57)
[2019-05-12] MEDS: METOCLOPRAMIDE 10 MG INJ IV ×3 (12:00→23:12)
[2019-05-12] MEDS: KETOROLAC 15 MG INJ IV (14:28)
[2019-05-12] MEDS ORDERED: HEPARIN 1000 UNITS/ML 10 ML INJ (18:47)
[2019-05-12] MEDS: HEPARIN 1000 UNITS/ML 10 ML INJ CATHETER (18:53)
[2019-05-12] MEDS: ATORVASTATIN 80 MG TAB PO (21:50)
[2019-05-12] MEDS: SENNA TAB PO (21:50)
[2019-05-12] MEDS: LATANOPROST 0.005% 2.5 ML OPH BOTH EYES (21:50)
[2019-05-12] MEDS: ESCITALOPRAM 10 MG TAB PO (21:51)
[2019-05-12] MEDS: SENNA/DOCUSATE NA (8.6MG/50MG) TAB PO (21:51)
[2019-05-12] MEDS: DOXAZOSIN 2 MG TAB PO (21:54)
[2019-05-12] MEDS: PSYLLIUM 28% PACKET PO (21:55)
[2019-05-13] MEDS ORDERED: GLUCOSE GEL 15 GRAM TUBE PO ×2 (02:00)
[2019-05-13] MEDS ORDERED: GLUCOSE GEL 15 GRAM TUBE BUCCAL (02:00)
[2019-05-13] MEDS ORDERED: GLUCAGON 1 MG INJ IM (02:00)
[2019-05-13] MEDS: ACCU-CHEK XX (02:00)
[2019-05-13] MEDS ORDERED: DEXTROSE 50% 50 ML SYRINGE IV ×2 (02:00)
[2019-05-13] MEDS: PANTOPRAZOLE (EC) 40 MG TAB PO (06:00)
[2019-05-13] MEDS: METOCLOPRAMIDE 10 MG INJ IV (06:18)
[2019-05-13] MEDS: HYDROmorphONE 0.5 MG/0.5 ML SYG IV ×3 (06:20→17:37)
[2019-05-13] MEDS: HEPARIN 5,000 UNIT/1 ML VIAL SC ×3 (06:25→20:57)
[2019-05-13 07:15] LABS: ANION GAP 6 (5-13); BLOOD UREA NITROGEN 6 mg/dl (7-20); CALCIUM 8.4 mg/dl (8.4-10.2); CARBON DIOXIDE 27 mmol/L (21-31); CHLORIDE 106 mmol/L (97-110); CREATININE 2.11 mg/dl (0.44-1.00); Estimated GFR 25 mL/min (>60); GLUCOSE 99 mg/dl (70-220); POTASSIUM 3.6 mmol/L (3.5-5.1); SODIUM 139 mmol/L (135-144)
[2019-05-13] MEDS: INSULIN ASPART [NOVOLOG] 3 ML PEN SC ×4 (07:50→20:55)
[2019-05-13] MEDS: traMADol 50 MG TAB PO ×2 (09:22→20:53)
[2019-05-13] MEDS: LEVETIRACETAM 500 MG TAB PO ×2 (09:22→20:52)
[2019-05-13] MEDS: RIFAMPIN 300 MG CAP PO (09:22)
[2019-05-13] MEDS: MINOXIDIL 2.5 MG TAB PO ×2 (09:22→20:54)
[2019-05-13] MEDS: BRIMONIDINE 0.2% 5 ML BTL BOTH EYES ×3 (09:23→20:50)
[2019-05-13] MEDS: LISINOPRIL 20 MG TAB PO ×2 (09:23→20:55)
[2019-05-13] MEDS: METOPROLOL (XL) 100 MG TAB PO (09:23)
[2019-05-13] MEDS: NIFEdipine (XL) 60 MG TAB PO ×2 (09:23→20:55)
[2019-05-13] MEDS: LACTOBACILLUS RHAMNOSUS CAP PO ×2 (09:24→20:54)
[2019-05-13] MEDS: PSYLLIUM 28% PACKET PO ×2 (09:24→20:50)
[2019-05-13] MEDS: ASPIRIN (EC) 81 MG TAB PO (09:24)
[2019-05-13] MEDS: CELECOXIB 100 MG CAP PO ×2 (09:24→20:54)
[2019-05-13] MEDS: SENNA TAB PO ×2 (09:24→20:54)
[2019-05-13] MEDS: DORZOLAMIDE/TIMOLOL/PF 0.2 ML DROPERETTE BOTH EYES ×2 (09:24→20:50)
[2019-05-13] MEDS: LIDOCAINE 5% PATCH TD (09:26)
[2019-05-13 10:30] LABS: PARATHYROID HORMONE 26.1 pg/ml (24.0-73.0)
[2019-05-13] MEDS: ACETAMINOPHEN 325 MG TAB PO (11:10)
[2019-05-13] MEDS: KETOROLAC 15 MG INJ IV (14:31)
[2019-05-13] MEDS: OXYCODONE/ACETAMINOPHEN (5/325) TAB PO (19:40)
[2019-05-13] MEDS: MAGNESIUM HYDROXIDE 30ML CUP PO (19:40)
[2019-05-13] MEDS: DOXAZOSIN 2 MG TAB PO (20:53)
[2019-05-13] MEDS: SENNA/DOCUSATE NA (8.6MG/50MG) TAB PO (20:54)
[2019-05-13] MEDS: ESCITALOPRAM 10 MG TAB PO (20:54)
[2019-05-13] MEDS: ATORVASTATIN 80 MG TAB PO (20:54)
[2019-05-13] MEDS: LATANOPROST 0.005% 2.5 ML OPH BOTH EYES (21:10)
[2019-05-14] MEDS: ACCU-CHEK XX (02:00)
[2019-05-14] MEDS: HYDROmorphONE 0.5 MG/0.5 ML SYG IV ×3 (03:10→17:11)
[2019-05-14 05:45] LABS: VANCOMYCIN,RANDOM 18.8 ug/ml
[2019-05-14] MEDS: PANTOPRAZOLE (EC) 40 MG TAB PO (07:11)
[2019-05-14] MEDS: INSULIN ASPART [NOVOLOG] 3 ML PEN SC ×4 (07:58→20:31)
[2019-05-14] MEDS: DORZOLAMIDE/TIMOLOL/PF 0.2 ML DROPERETTE BOTH EYES ×2 (09:00→20:23)
[2019-05-14] MEDS: PSYLLIUM 28% PACKET PO ×2 (09:00→20:22)
[2019-05-14] MEDS: BRIMONIDINE 0.2% 5 ML BTL BOTH EYES ×3 (09:00→20:22)
[2019-05-14] MEDS: RIFAMPIN 300 MG CAP PO (09:17)
[2019-05-14] MEDS: METOPROLOL (XL) 100 MG TAB PO (09:17)
[2019-05-14] MEDS: HEPARIN 5,000 UNIT/1 ML VIAL SC ×2 (09:18→20:25)
[2019-05-14] MEDS: NIFEdipine (XL) 60 MG TAB PO ×2 (09:18→20:24)
[2019-05-14] MEDS: MINOXIDIL 2.5 MG TAB PO ×2 (09:19→20:23)
[2019-05-14] MEDS: ASPIRIN (EC) 81 MG TAB PO (09:19)
[2019-05-14] MEDS: CELECOXIB 100 MG CAP PO ×2 (09:19→20:22)
[2019-05-14] MEDS: CHOLECALCIFEROL 1,000 UNIT TAB PO (09:19)
[2019-05-14] MEDS: LACTOBACILLUS RHAMNOSUS CAP PO ×2 (09:19→20:24)
[2019-05-14] MEDS: LISINOPRIL 20 MG TAB PO ×2 (09:19→20:22)
[2019-05-14] MEDS: traMADol 50 MG TAB PO ×2 (09:19→20:23)
[2019-05-14] MEDS: LEVETIRACETAM 500 MG TAB PO ×2 (09:20→20:22)
[2019-05-14] MEDS: SENNA TAB PO ×2 (09:20→20:23)
[2019-05-14] MEDS: LIDOCAINE 5% PATCH TD (09:21)
[2019-05-14] MEDS: OXYCODONE/ACETAMINOPHEN (5/325) TAB PO (12:26)
[2019-05-14] MEDS: ATORVASTATIN 80 MG TAB PO (20:22)
[2019-05-14] MEDS: SENNA/DOCUSATE NA (8.6MG/50MG) TAB PO (20:23)
[2019-05-14] MEDS: DOXAZOSIN 2 MG TAB PO (20:23)
[2019-05-14] MEDS: ESCITALOPRAM 10 MG TAB PO (20:23)
[2019-05-14] MEDS: LATANOPROST 0.005% 2.5 ML OPH BOTH EYES (20:24)
[2019-05-14] MEDS: VANCOMYCIN HCL 1.25 GM in SOD CHLORIDE 0.9% 250 ML IVPB (20:25)
[2019-05-15] MEDS: ACCU-CHEK XX (02:00)
[2019-05-15] MEDS: HYDROmorphONE 0.5 MG/0.5 ML SYG IV ×4 (02:46→21:08)
[2019-05-15] MEDS: PANTOPRAZOLE (EC) 40 MG TAB PO (06:00)
[2019-05-15] MEDS: INSULIN ASPART [NOVOLOG] 3 ML PEN SC ×4 (08:00→21:00)
[2019-05-15] MEDS: RIFAMPIN 300 MG CAP PO (08:18)
[2019-05-15] MEDS: CHOLECALCIFEROL 1,000 UNIT TAB PO (08:19)
[2019-05-15] MEDS: LEVETIRACETAM 500 MG TAB PO ×2 (08:19→20:52)
[2019-05-15] MEDS: LIDOCAINE 5% PATCH TD (08:19)
[2019-05-15] MEDS: BRIMONIDINE 0.2% 5 ML BTL BOTH EYES ×3 (08:19→20:50)
[2019-05-15] MEDS: ASPIRIN (EC) 81 MG TAB PO (08:19)
[2019-05-15] MEDS: DORZOLAMIDE/TIMOLOL/PF 0.2 ML DROPERETTE BOTH EYES ×2 (08:20→20:50)
[2019-05-15] MEDS: LACTOBACILLUS RHAMNOSUS CAP PO ×2 (08:20→20:50)
[2019-05-15] MEDS: PSYLLIUM 28% PACKET PO ×2 (08:20→20:52)
[2019-05-15] MEDS: SENNA TAB PO ×2 (08:20→20:51)
[2019-05-15] MEDS: traMADol 50 MG TAB PO ×2 (08:21→20:52)
[2019-05-15] MEDS: CELECOXIB 100 MG CAP PO ×2 (08:21→20:51)
[2019-05-15] MEDS: HEPARIN 5,000 UNIT/1 ML VIAL SC ×2 (08:22→20:53)
[2019-05-15] MEDS: MINOXIDIL 2.5 MG TAB PO ×2 (08:26→20:52)
[2019-05-15] MEDS: LISINOPRIL 20 MG TAB PO ×2 (13:32→20:51)
[2019-05-15] MEDS: METOPROLOL (XL) 100 MG TAB PO (13:32)
[2019-05-15] MEDS: NIFEdipine (XL) 60 MG TAB PO ×2 (13:40→20:51)
[2019-05-15] MEDS: ESCITALOPRAM 10 MG TAB PO (20:50)
[2019-05-15] MEDS: LATANOPROST 0.005% 2.5 ML OPH BOTH EYES (20:50)
[2019-05-15] MEDS: ATORVASTATIN 80 MG TAB PO (20:50)
[2019-05-15] MEDS: DOXAZOSIN 2 MG TAB PO (20:51)
[2019-05-15] MEDS: SENNA/DOCUSATE NA (8.6MG/50MG) TAB PO (20:52)
[2019-05-16] MEDS: ACCU-CHEK XX (02:00)
[2019-05-16] MEDS: HYDROmorphONE 0.5 MG/0.5 ML SYG IV ×2 (02:32→06:12)
[2019-05-16] MEDS: PANTOPRAZOLE (EC) 40 MG TAB PO (06:11)
[2019-05-16] MEDS: INSULIN ASPART [NOVOLOG] 3 ML PEN SC ×3 (08:00→18:05)
[2019-05-16] MEDS: BRIMONIDINE 0.2% 5 ML BTL BOTH EYES ×2 (09:00→12:33)
[2019-05-16] MEDS: DORZOLAMIDE/TIMOLOL/PF 0.2 ML DROPERETTE BOTH EYES (09:00)
[2019-05-16] MEDS: HEPARIN 5,000 UNIT/1 ML VIAL SC (09:00)
[2019-05-16] MEDS: ONDANSETRON 4 MG INJ IV (09:49)
[2019-05-16] MEDS: LISINOPRIL 20 MG TAB PO (09:49)
[2019-05-16] MEDS: MINOXIDIL 2.5 MG TAB PO (09:50)
[2019-05-16] MEDS: NIFEdipine (XL) 60 MG TAB PO (09:50)
[2019-05-16] MEDS: METOPROLOL (XL) 100 MG TAB PO (09:50)
[2019-05-16] MEDS: SENNA TAB PO (09:51)
[2019-05-16] MEDS: RIFAMPIN 300 MG CAP PO (09:51)
[2019-05-16] MEDS: LEVETIRACETAM 500 MG TAB PO (09:51)
[2019-05-16] MEDS: CELECOXIB 100 MG CAP PO (09:51)
[2019-05-16] MEDS: traMADol 50 MG TAB PO (09:51)
[2019-05-16] MEDS: ASPIRIN (EC) 81 MG TAB PO (09:52)
[2019-05-16] MEDS: PSYLLIUM 28% PACKET PO (09:52)
[2019-05-16] MEDS: CHOLECALCIFEROL 1,000 UNIT TAB PO (09:52)
[2019-05-16] MEDS: LACTOBACILLUS RHAMNOSUS CAP PO (09:52)
[2019-05-16] MEDS: LIDOCAINE 5% PATCH TD (09:52)
== END 2019-05-16 18:34 | DRG 564 ==
LOC: E/R 22:17 → PP2 05-12 01:15
PROC: 5A1D70Z Performance of Urinary Filtration, Intermittent, Less than 6 Hours Per Day (ICD-10-PCS; 2019-05-12)
PROC: 5A1D70Z Performance of Urinary Filtration, Intermittent, Less than 6 Hours Per Day (ICD-10-PCS; principal; 2019-05-15)
DX: M85.88 Other specified disorders of bone density and structure, other site (principal); G06.2 Extradural and subdural abscess, unspecified; N18.6 End stage renal disease; M86.9 Osteomyelitis, unspecified; I12.0 Hypertensive chronic kidney disease with stage 5 chronic kidney disease or end stage renal disease; Z99.2 Dependence on renal dialysis; M54.9 Dorsalgia, unspecified; M25.551 Pain in right hip; D63.1 Anemia in chronic kidney disease; E66.9 Obesity, unspecified; Z68.27 Body mass index [BMI] 27.0-27.9, adult; K59.00 Constipation, unspecified; H40.9 Unspecified glaucoma; M48.061 Spinal stenosis, lumbar region without neurogenic claudication; G40.909 Epilepsy, unspecified, not intractable, without status epilepticus; F32.9 Major depressive disorder, single episode, unspecified; Z79.82 Long term (current) use of aspirin
CPT/HCPCS: 72131; 72170; 73520; 80048; 80053; 80202; 82306; 82652; 82962; 83605; 83970; 84703; 85025; 85651; 86140; 87340; 90935; 96374; 96375; 96376; 97162; 99285-25; G0378